=== PATIENT | female | born 1945 | race Caucasian/White ===

== ENCOUNTER 2022-05-29 10:45 | Outpatient (RCR) | payer MEDICARE, BC, SELFPAY ==
--- NOTE | 2022-05-21 14:50 | PT.OPDNX ---
PT [facility] Daily Note PT [facility] Daily Note Start: 05/06/22 09:14 Freq: Status: Active Protocol: Document 05/06/22 09:15 YUNahid (Rec: 05/06/22 09:23 TEGAN [id number]) E-Signed By Beulah Desai, PT PT OP Daily Progress Note Visit Information Note Type Daily Note Visit Number [id number] Insurance Information Recert Due Date 05/22/22 Insurance Name Medicare B Medical Diagnosis Rt Femoral Head Fracture with Surgical Repair Treating Diagnosis Impaired WB and Balance Reduced ease of self cares and ADL's Reduced flexibility and strength Rt involved LE Rt hip and LBP Subjective Subjective Have more pain when I try to do the scar mobs like you do here. I don't quite do it right, and it hurts afterward. When I don't monkey with it, and only do the ex and walk, I don 't have any pain. I do feel fully stable for the first 2-3 steps walking, but then it is fine. I have to remind myself to stand up tall. Pain Comments minimal - at ant hip/groind Precautions Treatment Precautions/Contraindications Hypertension Arthritis Weight Bearing Status Full Weight Bearing Objective Patient Instructed in Risks/Benefits Yes Therapeutic Exercise Therapeutic Exercise Minutes (minutes) 22 Therapeutic Exercise: To Restore Completed ex of: Functional Status -sit back squat X 10 reps -4 step ups X 20 reps kathy -hip EXT/ABD combo with GTB X 20 reps kathy -tandom stance X 30 sec X 2 kathy -SLS with average Rt today 5 sec (was 2 sec) -alternating Lt/Rt forward lunges *HEP of: -nichelle hip flex stretch, leg hang off table -hip circles 15 reps CW/CCW -bridge with hip ABD X 10 reps . Added GTB to this ex. Given band for home use with this and standing hip ABD/EXT combo X 10 reps kathy. -hip hike X 20 reps kathy -toe tap on bottom step X 20 reps. -hip flex stretch with leg off table -hip ADD stretch from hooklying, then allow Rt knee to fall outwards. -forward lunge and alternate Rt/Lt -SLS with average Rt leg of 2 sec -mini wall squats -ankle pumps, heel slide/knee flex, quad sets. -bridge X 2 sets of 5 reps -SLR 2 sets of 5 reps -Dbl heel raise at counter top X 10 reps -standing hip ABD Rt leg X 10 reps (progress to resistance band use) Manual Therapy Techniques Manual Therapy Minutes (minutes) 16 Manual Therapy Techniques to promote circulation and flexibility, reduced LL edema, we completed: -supine gross full Rt quad, ITB and buttock/hip moderate pressure STM, manual hamstring and gastroc stretches, mod pressure over lateral hip / incision, Manual hip ADD and hip flex stretching. Long leg distraction (not HVLAT) -Rt sdly for mod pressure STM/ mm beding and TPR to Rt piriformis, glut med/max. Also AP/PA mobs at Rt SIJ Treatment Minutes Timed Code Treatment Minutes 38 Total Treatment Time 38 Assessment/Impression Assessment/Impression Min to moderate tenderness and palpable hypertonicity with moderte pressure at inguinal lig and ADD origin at pelvis. She tolerated treatment well. Still weak with hip EXT and ER, but good range. She ambulates with slight FF at trunk, difficult to have her stand erect. She states she feels like that is how she has always walked! Plan of Care Physical Therapy Goals In 4-6 visits, Julisa will be able to: 1. A/D flight of 10 steps with reciprocal pattern and symmetric WB. 2. Squat and lift up at least 15#, carry a distance of 30 feet (groceries to the house from car, laundry basket) 3. Stand/walk up to 30 min to prepare light meals for her and her 4. Walk outdoore at least 30 min to walk her dog 2X/day ( border collie) In 3-4 months, Julisa will be able to: 1. Return to walk for ex at least 2 miles per day 2. Sleep up to 6 hours without awakening due to hip discomfort 3. Return to PLOF with home cares, cleaning and light yard work (flower pots and picking up sticks) Daily Plan of Care Continue per POC Daily Plan of Care Comments Information pulled forward from our original documentation format in [employer]. No treatment this date. No charge. Recertification Information Clinical Certification # #[id number] Patient's H.I.C.N.# # I Certify That I Have Established All Therapy Services/Plan Physician Signature Shows Agreement Dates & Medical Necessity Physician Comment/Change Comment or Changes Physician Signature & Date Please Sign/Date Here Physician NPI Number # Document 05/08/22 13:40 CLK (Rec: 05/08/22 13:56 K [id number]) E-Signed By Beulah Desai, PT PT OP Daily Progress Note Visit Information Note Type Daily Note Visit Number 9 Insurance Information Recert Due Date 05/22/22 Insurance Name Medicare B Medical Diagnosis Rt Femoral Head Fracture with Surgical Repair Treating Diagnosis Impaired WB and Balance Reduced ease of self cares and ADL's Reduced flexibility and strength Rt involved LE Rt hip and LBP Subjective Subjective I woke up this morning and immediately felt like it would be a better day! My stiffness was less and no real pain. I was able to take a shower and dress, by the time I was done with coffee, my stiffness even seemed less. I finally think this is going to be ok. Precautions Treatment Precautions/Contraindications Hypertension Arthritis Weight Bearing Status Full Weight Bearing Objective Patient Instructed in Risks/Benefits Yes Therapeutic Exercise Therapeutic Exercise Minutes (minutes) 25 Therapeutic Exercise: To Restore Completed ex of: Functional Status -sit back squat X 10 reps -4 step ups X 20 reps kathy -hip hike at stairs X 25 reps kathy -hip EXT/ABD combo with BTB X 25 reps kathy -tandom stance X 30 sec X 2 kathy -SLS with average Rt today 7 sec (was 2 sec) -alternating Lt/Rt forward lunges *HEP of: -nichelle hip flex stretch, leg hang off table -hip circles 15 reps CW/CCW -bridge with hip ABD X 10 reps . Added GTB to this ex. Given band for home use with this and standing hip ABD/EXT combo X 10 reps kathy. -hip hike X 20 reps kathy -toe tap on bottom step X 20 reps. -hip flex stretch with leg off table -hip ADD stretch from hooklying, then allow Rt knee to fall outwards. -forward lunge and alternate Rt/Lt -SLS with average Rt leg of 2 sec -mini wall squats -ankle pumps, heel slide/knee flex, quad sets. -bridge X 2 sets of 5 reps -SLR 2 sets of 5 reps -Dbl heel raise at counter top X 10 reps -standing hip ABD Rt leg X 10 reps (progress to resistance band use) Manual Therapy Techniques Manual Therapy Minutes (minutes) 16 Manual Therapy Techniques to promote circulation and flexibility, we completed: -supine gross full Rt quad, ITB and lat hip moderate pressure STM, manual hamstring and gastroc stretches, mod pressure over lateral hip / incision, Manual hip ADD and hip flex stretching. Long leg distraction (not HVLAT) -Rt sdly for mod pressure STM/ mm bending and TPR to Rt piriformis, glut med/max. Also AP/PA mobs at Rt SIJ Treatment Minutes Timed Code Treatment Minutes 41 Total Treatment Time 41 Billing Units Manual Therapy Units 1 Therapeutic Exercise Units 2 Assessment/Impression Assessment/Impression Min to moderate tenderness and palpable hypertonicity with moderate pressure at inguinal lig and ADD origin at pelvis. and piriformis. Still weak with hip EXT and ER, but good range. Required vc on combination of these planes with standing BTB hip EXT/ABD. She ambulates with slight trunk FF, but when reminded, she is able to stand tall. Educated in how she can perform hip IR with leg on chair (hold wall for stability ) Plan of Care Physical Therapy Goals In 4-6 visits, Julisa will be able to: 1. A/D flight of 10 steps with reciprocal pattern and symmetric WB. MET 2. Squat and lift up at least 15#, carry a distance of 30 feet (groceries to the house from car, laundry basket) partially MET 3. Stand/walk up to 30 min to prepare light meals for her and her . MET 4. Walk outdoors at least 30 min to walk her dog 2X/day ( [employer]) Pertially met In 3-4 months, Julisa will be able to: 1. Return to walk for ex at least 2 miles per day 2. Sleep up to 6 hours without awakening due to hip discomfort. MET 3. Return to PLOF with home cares, cleaning and light yard work (flower pots and picking up sticks) Daily Plan of Care Continue per POC Recertification Information Clinical Certification # #[id number] Patient's H.I.C.N.# # I Certify That I Have Established All Therapy Services/Plan Physician Signature Shows Agreement Dates & Medical Necessity Physician Comment/Change Comment or Changes Physician Signature & Date Please Sign/Date Here Physician NPI Number # Document 05/15/22 13:31 TEGAN (Rec: 05/15/22 13:40 TEGAN [id number]) E-Signed By Beulah Desia, PT PT OP Daily Progress Note Visit Information Note Type Daily Note Visit Number 10 Insurance Information Recert Due Date 05/22/22 Insurance Name Medicare B Medical Diagnosis Rt Femoral Head Fracture with Surgical Repair Treating Diagnosis Impaired WB and Balance Reduced ease of self cares and ADL's Reduced flexibility and strength Rt involved LE Rt hip and LBP Subjective Subjective Overall, I feel like my symptoms after my hip surgery are about 80% PLOF. I woke up this morning and immediately felt like it would be a better day! My stiffness as less and no real pain. More of a general hip / LB ache. I was able to take a shower and dress, by the time I was done with coffee, my stiffness even seemed less. I finally think this is going to be ok. Precautions Treatment Precautions/Contraindications Hypertension Arthritis Weight Bearing Status Full Weight Bearing Objective Patient Instructed in Risks/Benefits Yes Therapeutic Exercise Therapeutic Exercise Minutes (minutes) 23 Therapeutic Exercise: To Restore Completed ex of: Functional Status -sit back squat X 10 reps -4 step ups X 20 reps kathy -Nu Step X 5 min for circulation and flexibility. Level 3 -hip EXT/ABD combo with BTB X 25 reps kathy -tandom stance X 30 sec X 2 kathy -SLS with average Rt today 7 sec (was 2 sec) -alternating Lt/Rt forward lunges *HEP of: -nichelle hip flex stretch, leg hang off table -hip circles 15 reps CW/CCW -bridge with hip ABD X 10 reps . Added GTB to this ex. Given band for home use with this and standing hip ABD/EXT combo X 10 reps kathy. -hip hike X 20 reps kathy -toe tap on bottom step X 20 reps. -hip flex stretch with leg off table -hip ADD stretch from hooklying, then allow Rt knee to fall outwards. -forward lunge and alternate Rt/Lt -SLS with average Rt leg of 2 sec -mini wall squats -ankle pumps, heel slide/knee flex, quad sets. -bridge X 2 sets of 5 reps -SLR 2 sets of 5 reps -Dbl heel raise at counter top X 10 reps -standing hip ABD Rt leg X 10 reps (progress to resistance band use) Manual Therapy Techniques Manual Therapy Minutes (minutes) 16 Manual Therapy Techniques to promote circulation and flexibility, we completed: -supine gross full Rt quad, ITB and lat hip moderate pressure STM, manual hamstring and gastroc stretches, mod pressure over lateral hip / incision, Manual hip ADD and hip flex stretching. Long leg distraction (not HVLAT) -Rt sdly for mod pressure STM/ mm bending and TPR to Rt piriformis, glut med/max. Also AP/PA mobs at Rt SIJ Treatment Minutes Timed Code Treatment Minutes 39 Total Treatment Time 39 Billing Units Manual Therapy Units 1 Therapeutic Exercise Units 2 Assessment/Impression Assessment/Impression Min to moderate tenderness and palpable hypertonicity with moderate pressure at inguinal lig and ADD origin at pelvis. and piriformis. Reduced sacral mobility with grade 3 spring mobs. Still weak with hip EXT and ER, but normal PROM. Required vc on combination of these planes with standing BTB hip EXT/ABD. She ambulates with slight trunk FF, but when reminded, she is able to stand tall. Educated in how she can complete IR stretch in sitting. Plan of Care Physical Therapy Goals In 4-6 visits, Julisa will be able to: 1. A/D flight of 10 steps with reciprocal pattern and symmetric WB. MET 2. Squat and lift up at least 15#, carry a distance of 30 feet (groceries to the house from car, laundry basket) partially MET 3. Stand/walk up to 30 min to prepare light meals for her and her . MET 4. Walk outdoors at least 30 min to walk her dog 2X/day ( [employer]) Pertially met In 3-4 months, Julisa will be able to: 1. Return to walk for ex at least 2 miles per day 2. Sleep up to 6 hours without awakening due to hip discomfort. MET 3. Return to PLOF with home cares, cleaning and light yard work (flower pots and picking up sticks) Daily Plan of Care Continue per POC Recertification Information Clinical Certification # #[id number] Patient's H.I.C.N.# # Initial Certification Date 02/26/22 Most Recent Visit 05/15/22 Recertification Start Date 05/15/22 Recertification Due Date 08/11/22 Reasons to Continue Skilled Therapy Cont to have reduced AROM Rt involved hip EXT and IR. Weakness at hip EXT and ABD. Tenderness at hip flex and ADD origin. Slight FF with gait. Rehabilitation Potential Good Continued Plan of Care and Interventions Cont 1X/Wk for potentially 4 more visits I Certify That I Have Established All Therapy Services/Plan Physician Signature Shows Agreement Dates & Medical Necessity Physician Comment/Change Comment or Changes Physician Signature & Date Please Sign/Date Here Physician NPI Number #
== END 2022-07-21 13:25 | disposition home or self-care (01) ==
PROVIDERS: PCP Family Medicine; Visit Provider Family Medicine
DX: R26.9 Unspecified abnormalities of gait and mobility (principal); Z51.89 Encounter for other specified aftercare
CPT/HCPCS: 97110; 97140

== ENCOUNTER 2023-07-22 14:30 | Outpatient (RCR) | payer MEDICARE, BC, SELFPAY ==
--- NOTE | 2023-05-05 12:23 | OT.OPOE ---
OT Outpatient Ortho Eval OT Outpatient Ortho Eval* Start: 05/05/23 10:24 Freq: Status: Active Protocol: Document 05/05/23 11:41 LCN (Rec: 05/05/23 12:17 LCN [id number]) E-signed By Carmen Painter, OTR/L, CLT OT OP Ortho Eval Details Complexity Complexity Low Insurance Information Insurance Information Medicare B Insurance Information Comments BCBS Outpatient History/Precautions Current Condition/Medical Diagnosis Referring Provider Narayan Trejo Treatment Diagnosis L distal radius fracture Date of Onset 03/21/23 Medical Conditions Metal Implants,Arthritis Other Conditions Has had 2 falls with injury-- R hip fracture with hemiarthroplasty repair after hotel bathroom fall in [place] February 2022. 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 Has digit rotations for left RF/SF that were noted prior to her March wrist fracture Medical/Functional History Medical History Reviewed Yes Prior Level of Function/Mobility Pt lives with her in 3 level home, laundry and bathroom, bedrooms on main level. Stopped travelling with since 2019. 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 Ortho Subjective Subjective Subjective Julisa Bernard is an active 77 y/o female who fell onto outstretched L dominant hand in her laundry room while stepping onto a rolled up rug on 03/21/23. She was seen and ER and found to have sustained a distal radius fracture. Casted x [address] Flores and had follow up with Narayan Trejo on 04/1523. X ray reveals fracture healing with 25 degree dorsal angulation and 3 mm positive variance. notes that wrist FL ROM may be limited by 30 degrees. She is starting to wean off splint a bit and can tell she is less stiff with it off. Sleeps with it on still. Since this she is having difficulty with being unable to drive, don bra, chop vegetables, carry heavy pots/ dishes or laundry loads, or fold towels. Pain Assessment Pain Present Pain Present Pain Reported Location L wrist Description Pressure,Dull, Achy,Throbbing Intensity 4 Range of Motion and Strength Shoulder Range of Motion and Strength Shoulder Range of Motion and Strength Pt stiff with end range of shoulder L SH ER and IR after casting. RUE hand is sore at CMC and wrist just from using more. Wrist Range of Motion and Strength Wrist Range of Motion and Strength Springy at end ROM L EL FL. Supination 60 of 90, pronation 45 of 90. WR EX to 50 of 65 , WR FL 60 of 85 AROM (tender at distal radius 3/10). RD to 15 of 20 and UD 40 of 45 (tender at distal radius 3/10 ). Hand/Finger/Thumb Range of Motion and Strength Hand/Finger/Thumb Range of Motion and Makes loose fist, flat fist Strength and table top easily. Hooked fist to rolled down fist challenging per PIP DIP OA changes. L TH opposition to 10/10 [place] and retropulsion to 3/ 4, stiff at CMC base. 3-4/10 pain at L distal radius site with gripping, pinching. Hand Pinch/Spinner Open End Strength Hand Right Spinner Open End Strength Position 1 (lbs) 20 Lateral Pinch Strength (lbs) 8 Three Point Pinch (lbs) 8 Left Spinner Open End Strength Position 1 (lbs) 10 Lateral Pinch Strength (lbs) 5 Three Point Pinch (lbs) 5 OT Problems Problems Problems Decreased Strength,Decreased Range of Motion,Decreased Dexterity Problems Comments Unable to drive, don bra, chop vegetables, carry heavy pots/dishes or laundry loads, fold towels Hoping to get back to walking on treadmill and using therapy ball for core exercises. Other Problems Writing Patient Potential Excellent Assessment Assessment Assessment Julisa is recovering well from her dominant hand distal radius fracture, but continues to have difficulty with edema , pain, ROM and strength loss of L hand/wrist/forearm and she would benefit from skilled OT to address these areas. Occupational Therapy Treatment Plan - OP Potential Rehabilitation Potential Excellent Goals Goals In 8 weeks, pt will demonstrate:? 1) Decreased pn to <2/10 80% of the time with sustained gripping, carrying groceries, driving and cooking. 2) I HEP for stretching, gradual strengthening and self mgmt strategies. 3) improved L manager [employer] marketing strength to 15# and pinch to 7# with L wrist pain < 1/10. 4)??Pt to be fit with functional bracing (for CMC, edema gloves) and use adaptive strategies to protect joint integrity to support less pain with ADL. Treatment Plan Treatment Plan Evaluation,Edema Control,Joint Mobilization,Manual Therapy, Therapeutic Exercise,Self Care /Home Management,Education Expected Frequency 1-2x Week Expected Duration 8-10 Weeks Home Program Home Program Home Program Initiated Home Program Specifics Warm water soaks, hand/wrist/ forearm AROM stretches. Increase gentle self care tasks without brace on. Brace on for community mobility. Certification Certification I Certify That: Therapy Services Provided, Therapy Plan Established, Therapy Plan Reviewed Recertification Information Recertification Information Initial Certification Date 05/05/23 Recertification Due Date 08/03/23 Provider Signature Shows Agreement With POC & Medical Necessity Physician Comment/Change Comment or Changes Physician NPI Number #
--- NOTE | 2023-06-30 10:26 | OT.OPODN ---
OT Outpatient Ortho Daily Note OT Outpatient Ortho Daily Note* Start: 05/05/23 10:24 Freq: Status: Active Protocol: Document 06/30/23 10:12 CATERINA (Rec: 06/30/23 10:26 LCIveth [id number]) E-signed By Carmen Painter, OTR/L, CLT Type of Note Type of Note Type of Note Daily Note,Note to MD Visit Number 10 Insurance Information Insurance Information Medicare B Insurance Information Comments BCBS Outpatient History/Precautions Current Condition/Medical Diagnosis Referring Provider Narayan Trejo Treatment Diagnosis L distal radius fracture Date of Onset 03/21/23 Other Precautions Added diagnosis of carpal tunnel syndrome R hand as of Medical Conditions Metal Implants,Arthritis Other Conditions Has had 2 falls with injury-- R hip fracture with hemiarthroplasty repair after hotel bathroom fall in [place] February 2022. 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 Has digit rotations for left RF/SF that were noted prior to her March wrist fracture Medical/Functional History Medical History Reviewed Yes Prior Level of Function/Mobility Pt lives with her in 3 level home, laundry and bathroom, bedrooms on main level. Stopped travelling with since 2019. 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 Ortho Subjective Subjective Subjective No longer having tingling in her R hand in the morning, occasional zapping feeling during grasp/twist of phone, fastening seat belt. Not confident pouring out pasta pot yet w L wrist, helps. Responds well to doing warm water and hand tendon gliding in shower. Wrist/ fingers get stiff, respond to wrist stretches and tendon glides. Julisa Bernard is an active 77 y/o female who fell onto outstretched L dominant hand in her laundry room while stepping onto a rolled up rug on 03/21/23. She was seen and ER and found to have sustained a distal radius fracture. Casted x [address] guevara and had follow up with Narayan Trejo on 04/1523. X ray reveals fracture healing with 25 degree dorsal angulation and 3 mm positive variance. notes that wrist FL ROM may be limited by 30 degrees. SHe is starting to wean off splint a bit and can tell she is less stiff with it off. Sleeps with it on still. Since this she is having difficulty with being unable to drive, michael bra, chop vegetables, carry heavy pots/ dishes or laundry loads, or fold towels. Pain Assessment Pain Present Pain Present Pain Reported Location R CTS Description Cramping,Spasm,Other Intensity 2 L wrist Description Pressure,Dull, Achy Intensity 1 OT OP Daily Ortho Note/Assessment Therapeutic Exercise Therapeutic Exercise Minutes (minutes) 8 Therapeutic Exercise Comments Added HEP for cervical retraction glides, 5 sec holds x 5 reps and cervical flexor suboccipital stretch as postural relief, feels some crepitus with retractions, not painful. Manual Therapy Manual Therapy Minutes (minutes) 18 Manual Therapy Comments OTR cont w STM of R forearm, thenar/web and CT arch (gritty , thick pressure at CT gives NN symptoms). OTR continues STM to mobilize soft tissue surrounding joint capsule,? ligament structures and muscle groups to support freedom of movement and healing of structures of L wrist. LPPS with joint tractioning and PCR joint mobilizations at S/L/C. Less pn at end ROM of supination post OT. Ultrasound Ultrasound Minutes (minutes) 8 Ultrasound Location & Joint Position OPEN R wrist CT Ultrasound Frequency & Mode 1 MHz Pulsed Intensity (w/cm2) 1.7 Ultrasound Comments as needed to support reduction of edema for tissue healing and improved tissue mobility Total Occupational Therapy Time Occupational Therapy Minutes 34 Home Program Home Program Home Program Revised,Compliant Home Program Specifics 06/30/23-- Cerv retraction and sub occipital stretch. 06/26/23-- copy camera operator/2p/K/rolling w yellow putty, exercise grid 06/22/23-- Yellow band WR EX/FL /RD/UD 06/02/24--Wall push ups 2 sec holds x 10, WR FL stretch and soup can WE, WF and sup/pron. 05/26/23- gripping in sup/pron /neutral pos/yellow, wall push ups. 05/13/23-- Lateral Weightshifting in punched position 25/75% - 75/25%. 05/11/23-- tendon glide exercises Warm water soaks, hand/wrist/ forearm AROM stretches. Increase gentle self care tasks without brace on. Brace on for community mobility. Range of Motion and Strength Shoulder Range of Motion and Strength Shoulder Range of Motion and Strength Pt stiff with end range of shoulder L SH ER and IR after casting. RUE hand is sore at CMC and wrist just from using more. Wrist Range of Motion and Strength Wrist Range of Motion and Strength Springy at end ROM L EL FL. Supination 60 of 90, pronation 45 of 90. WR EX to 50 of 65 , WR FL 60 of 85 AROM (tender at distal radius 3/10). RD to 15 of 20 and UD 40 of 45 (tender at distal radius 3/10 ). Hand/Finger/Thumb Range of Motion and Strength Hand/Finger/Thumb Range of Motion and Makes loose fist, flat fist Strength and table top easily. Hooked fist to rolled down fist challening per PIP DIP OA changes. L TH opposition to 10/10 kepangi and retropulsion to 3/ 4, stiff at CMC base. 3-02/16 pain at L distal radius site with gripping, pinching. Goniometric Comments Goniometric Comments Goniometric Comments 06/09/23-- WE 65 and WR FL to 70 .O adolfo pressure of supination and pronation tender at PCR S/ L/C.05/26/23-- Supination to 85 ( pulls at TFCC) WR FL to 60 and WR EX to 60 post OT. 05/13/23-- WR FL to 65 and WR EX to 65 post OT. 05/11/23-- WR FL from 60 to 65 and WR EX from 42 to 65 post OT. Hand Pinch/Brass Finisher Strength Hand Right Brass Finisher Strength Position 1 (lbs) 20 Lateral Pinch Strength (lbs) 9 Three Point Pinch (lbs) 6 Left Brass Finisher Strength Position 1 (lbs) 17 Lateral Pinch Strength (lbs) 10 Three Point Pinch (lbs) 6 Comments Comments 06/22/23--WE 60, WR FL to 70. Over pressure of supination to 85 of 90, no pain at TFCC anymore. Brass Finisher is 15# R an 17# L. 06/09/23-- R chart collector 20# (achy, feels weak, numbness in IF/MF) . L 14#. Improved per above. 05/13/23-- R chart collector 20#, L 10#. no change. Upper Extremity Special Tests Upper Extremity Special Tests Comments Comments 06/30/23--Durkan's (+) in 45 sec pre OT IF/MF mild finger tip tingling with brisk sec recovery and after OT session no sx in 60 sec. 06/26/23-- Durkan's (+) in 15 sec pre-OT at IF/MF/RF tingling with 10 sec recovery and after OT session no sx in 60 sec. 06/23/23-- Durkan's (+) in 15 sec per OT/IF/MF/RF tingling and after OT session no sx in 60 sec. 06/16/23-- Durkan's (+) in 55 sec, presents as jumpy fingers , not tingling, after OT session 06/09/23-- Durkan's (+) in 10 sec, taking > 30 sec to recover, numb most in middle finger. (-) in L hand. carpal compression (+), painful. Cervical compression in EX/FL and neutral no increase of tingling, but does get some with H ABD and Cerv LF to L and more with CERV LF R to the R. 05/13/23--Durkan's (+) with R hand at 20 sec (all fingers, h /o OA in R thumb), recovers in 10-15 sec. (-) L hand. OT Problems Problems Problems Decreased Strength,Decreased Range of Motion,Decreased Dexterity Problems Comments Unable to drive, michael bra, chop vegetables, carry heavy pots/dishes or laundry loads, fold towels Hoping to get back to walking on treadmill and using therapy ball for core exercises. Other Problems Writing Patient Potential Excellent Assessment Assessment Assessment Pt's R carpal tunnel irritation symptoms are responding well with bracing/ HS and STM, ultrasound. L wrist stiffness improving, working on stability with good response. Encouraged pt to modify her cell phone with support D loop to reduce hyper gripping. Julisa is recovering well from her dominant hand distal radius fracture, but continues to have difficulty with edema , pain, ROM and strength loss of L hand/wrist/forearm and she would benefit from skilled OT to address these areas. Occupational Therapy Treatment Plan - OP Potential Rehabilitation Potential Excellent Goals Goals In 8 weeks, pt will demonstrate:? 1) Decreased pn to <2/10 80% of the time with sustained gripping, carrying groceries, driving and cooking. 2) I HEP for stretching, gradual strengthening and self mgmt strategies. 3) improved L chart collector strength to 15# and pinch to 7# with L wrist pain < 1/10. 4)??Pt to be fit with functional bracing (for CMC, edema gloves) and use adaptive strategies to protect joint integrity to support less pain with ADL. Treatment Plan Treatment Plan Evaluation,Edema Control,Joint Mobilization,Manual Therapy, Therapeutic Exercise,Self Care /Home Management,Education Expected Frequency 1-2x Week Expected Duration 8-10 Weeks Occupational Therapy Billing Units Treatment Minutes Timed Treatment Minutes 34 Total Treatment Minutes 34 Billing Units Manual Therapy 1 Therapeutic Exercise 1 Certification Certification I Certify That: Therapy Services Provided, Therapy Plan Established, Therapy Plan Reviewed Recertification Information Recertification Information Initial Certification Date 05/05/23 Recertification Due Date 08/03/23 Provider Signature Shows Agreement With POC & Medical Necessity Physician Comment/Change Comment or Changes Physician NPI Number #
--- NOTE | 2023-07-22 15:40 | OT.OPODN ---
OT Outpatient Ortho Daily Note OT Outpatient Ortho Daily Note* Start: 05/05/23 10:24 Freq: Status: Active Protocol: Document 07/22/23 15:27 LCN (Rec: 07/22/23 15:39 LCN [id number]) E-signed By Carmen Painter, OTR/L, CLT Type of Note Type of Note Type of Note Daily Note,Discharge Note,Note to MD Visit Number 13 Insurance Information Insurance Information Medicare B Insurance Information Comments BCBS Outpatient History/Precautions Current Condition/Medical Diagnosis Referring Provider Narayan Trejo Treatment Diagnosis L distal radius fracture Date of Onset 03/21/23 Other Precautions Added diagnosis of carpal tunnel syndrome R hand as of Medical Conditions Metal Implants,Arthritis Other Conditions Has had 2 falls with injury-- R hip fracture with hemiarthroplasty repair after hotel bathroom fall in [place] February 2022. 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 Has digit rotations for left RF/SF that were noted prior to her March wrist fracture Medical/Functional History Medical History Reviewed Yes Prior Level of Function/Mobility Pt lives with her in 3 level home, laundry and bathroom, bedrooms on main level. Stopped travelling with since 2019. 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 Ortho Subjective Subjective Subjective WIth cortisone in R wrist, has had reduction in tingling, less swelling in fingers, good response. Is now confident pouring out pasta pot yet w L wrist/hand, helps get microwave items from overhead. Responds well to doing warm water and hand tendon gliding in shower to mange daily hand stiffness OA sx. Pt pleased with her outcomes and is feeling ready for discharge. Pain Assessment Pain Present Pain Present Pain Reported Location R CTS Description Cramping,Spasm,Other Intensity 0 L wrist Description Dull, Achy Intensity 1 OT OP Daily Ortho Note/Assessment Therapeutic Exercise Therapeutic Exercise Minutes (minutes) 9 Therapeutic Exercise Comments Doing well with HEP, adding hammer turns for supination / pronation planes, with rubber mallet held mid shaft. and orange band with wrist exercises. 10 reps ea of WR EX, FL RD, UD. COMpleted dynamic stabilization tasks with power web/yellow x 5 sec holds of 5 reps each WR EX + trimmer buffing wheel, punch + flexion. WR EX/ FL wringing. Well tolerated no pain. Pt guided to cont exercises 3x/week for the next month. Manual Therapy Manual Therapy Minutes (minutes) 15 Manual Therapy Comments OTR cont w STM of R forearm, thenar/web and CT arch (less gritty, thick). OTR continues STM to mobilize soft tissue surrounding joint capsule,? ligament structures and muscle groups to support freedom of movement and healing of structures of L wrist. LPPS with joint tractioning and PCR joint mobilizations at S/L/C. Less pn at end ROM of supination post OT. Total Occupational Therapy Time Occupational Therapy Minutes 24 Home Program Home Program Home Program Revised,Compliant Home Program Specifics 07/10/23-- hammer turns, orange band WR E/FL/RD/UD. 06/30/23-- Cerv retraction and sub occipital stretch. 06/26/23-- wind plant manager/2p/K/rolling w yellow putty, exercise grid 06/22/23-- Yellow band WR EX/FL /RD/UD 06/02/24--Wall push ups 2 sec holds x 10, WR FL stretch and soup can WE, WF and sup/pron. 05/26/23- gripping in sup/pron /neutral pos/yellow, wall push ups. 05/13/23-- Lateral Weightshifting in punched position 25/75% - 75/25%. 05/11/23-- tendon glide exercises Warm water soaks, hand/wrist/ forearm AROM stretches. Increase gentle self care tasks without brace on. Brace on for community mobility. Range of Motion and Strength Shoulder Range of Motion and Strength Shoulder Range of Motion and Strength Pt stiff with end range of shoulder L SH ER and IR after casting. RUE hand is sore at CMC and wrist just from using more. Wrist Range of Motion and Strength Wrist Range of Motion and Strength Springy at end ROM L EL FL. Supination 60 of 90, pronation 45 of 90. WR EX to 50 of 65 , WR FL 60 of 85 AROM (tender at distal radius 3/10). RD to 15 of 20 and UD 40 of 45 (tender at distal radius 3/10 ). Hand/Finger/Thumb Range of Motion and Strength Hand/Finger/Thumb Range of Motion and Makes loose fist, flat fist Strength and table top easily. Hooked fist to rolled down fist challening per PIP DIP OA changes. L TH opposition to 08/18 kepangi and retropulsion to 3/ 4, stiff at CMC base. 3-02/16 pain at L distal radius site with gripping, pinching. Goniometric Comments Goniometric Comments Goniometric Comments 06/09/23-- WE 65 and WR FL to 70 .O adolfo pressure of supination and pronation tender at PCR S/ L/C.05/26/23-- Supination to 85 ( pulls at TFCC) WR FL to 60 and WR EX to 60 post OT. 05/13/23-- WR FL to 65 and WR EX to 65 post OT. 05/11/23-- WR FL from 60 to 65 and WR EX from 42 to 65 post OT. Hand Pinch/Director Of Retail Strength Hand Right Director Of Retail Strength Position 1 (lbs) 22 Lateral Pinch Strength (lbs) 11 Three Point Pinch (lbs) 10 Left Director Of Retail Strength Position 1 (lbs) 20 Lateral Pinch Strength (lbs) 10 Three Point Pinch (lbs) 9.5 Comments Comments 07/22/23-- per above. 06/22/23--WE 60, WR FL to 70. Over pressure of supination to 85 of 90, no pain at TFCC anymore. Director Of Retail is 15# R an 17# L. 06/09/23-- R trimmer buffing wheel 20# (achy, feels weak, numbness in IF/MF) . L 14#. Improved per above. 05/13/23-- R trimmer buffing wheel 20#, L 10#. no change. Upper Extremity Special Tests Upper Extremity Special Tests Comments Comments 07/10/23-- Durkan's mildly positive for 15-30 seconds, then faded away no sx for last 30 sec at MF/RF. 07/03/23-- same as 06/30. --Durkan's (+) in 45 sec pre OT IF/MF mild finger tip tingling with brisk sec recovery and after OT session no sx in 60 sec. 06/26/23-- Durkan's (+) in 15 sec pre-OT at IF/MF/RF tingling with 10 sec recovery and after OT session no sx in 60 sec. 06/23/23-- Durkan's (+) in 15 sec per OT/IF/MF/RF tingling and after OT session no sx in 60 sec. 06/16/23-- Durkan's (+) in 55 sec, presents as jumpy fingers , not tingling, after OT session 06/09/23-- Durkan's (+) in 10 sec, taking > 30 sec to recover, numb most in middle finger. (-) in L hand. carpal compression (+), painful. Cervical compression in EX/FL and neutral no increase of tingling, but does get some with H ABD and Cerv LF to L and more with CERV LF R to the R. 05/13/23--Durkan's (+) with R hand at 20 sec (all fingers, h /o OA in R thumb), recovers in 10-15 sec. (-) L hand. OT Problems Problems Problems Decreased Strength,Decreased Range of Motion,Decreased Dexterity Problems Comments Unable to drive, michael bra, chop vegetables, carry heavy pots/dishes or laundry loads, fold towels Hoping to get back to walking on treadmill and using therapy ball for core exercises. Other Problems Writing Patient Potential Excellent Assessment Assessment Assessment Pt's R carpal tunnel irritation symptoms are responding better after cortisone. L wrist stiffness improving, now better wrist stability and progressing well with heavier household tasks. REady for d/c from OT. Occupational Therapy Treatment Plan - OP Potential Rehabilitation Potential Excellent Goals Goals Following 13 visits of OTJulisa demonstrates:? 1) Decreased pn to <2/10 80% of the time with sustained gripping, carrying groceries, driving and cooking. (GOAL MET 07/22/23) 2) I HEP for stretching, gradual strengthening and self mgmt strategies.(GOAL MET ) 3) improved L trimmer buffing wheel strength to 15# and pinch to 7# with L wrist pain < 1/10. (GOAL EXCEEDED 07/22/23) 4)??Pt to be fit with functional bracing (for CMC, edema gloves) and use adaptive strategies to protect joint integrity to support less pain with ADL. (GOAL D/C-- splint no longer needed) Treatment Plan Treatment Plan Evaluation,Edema Control,Joint Mobilization,Manual Therapy, Therapeutic Exercise,Self Care /Home Management,Education Expected Frequency 1-2x Week Expected Duration 8-10 Weeks Occupational Therapy Billing Units Treatment Minutes Timed Treatment Minutes 24 Total Treatment Minutes 24 Billing Units Manual Therapy 1 Therapeutic Exercise 1 Certification Certification I Certify That: Therapy Services Provided, Therapy Plan Established, Therapy Plan Reviewed Recertification Information Recertification Information Initial Certification Date 05/05/23 Recertification Due Date 08/03/23 Provider Signature Shows Agreement With POC & Medical Necessity Physician Comment/Change Comment or Changes Physician NPI Number # Discharge Note Discharge Note Discharge Summary Goals met per above. Date of First Visit for Therapy 05/05/23 Date of Last Visit for Therapy 07/22/23 Initial Primary Functional Limitations/ Julisa Bernard is an active 77 y/o [employer] female who fell onto outstretched L dominant hand in her laundry room while stepping onto a rolled up rug on 03/21/23. She was seen and ER and found to have sustained a distal radius fracture. Casted x [address] guevara and had follow up with Narayan Trejo on 04/1523. X ray reveals fracture healing with 25 degree dorsal angulation and 3 mm positive variance. notes that wrist FL ROM may be limited by 30 degrees. SHe is starting to wean off splint a bit and can tell she is less stiff with it off. Sleeps with it on still. Since this she is having difficulty with being unable to drive, michael bra, chop vegetables, carry heavy pots/ dishes or laundry loads, or fold towels. Interventions Provided During Treatment Edema Control,Joint Mobilization,Manual Therapy, Ultrasound,Therapeutic Exercise,Self Care/Home Management Interventions Provided During Treatment Pt's OT was extended to add Comments addressing sx of CTS in R hand , also had cortisone injection 07/06/23 which she responded very well to. Recommendations/Reason for Discharge Met All Therapy Goals
== END 2023-07-22 17:02 | disposition home or self-care (01) ==
PROVIDERS: PCP Family Medicine; Visit Provider Physician Assistant Surgical
DX: S52.502A Unspecified fracture of the lower end of left radius, initial encounter for closed fracture (principal); G56.01 Carpal tunnel syndrome, right upper limb; Z51.89 Encounter for other specified aftercare
CPT/HCPCS: 97035; 97110; 97140; 97165; 97535; X5282

== ENCOUNTER 2024-12-04 09:50 | Emergency (ER) | payer MEDICARE, BC, SELFPAY ==
--- OUTSIDE RECORDS SUMMARY | 2024-12-04 09:52 | XMS_ITS | Clinical Summary ---
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 Gender Identity Not on file Sexual Orientation Not on file Plan of Treatment Health Maintenance Due Date Last Done Comments Tdap 1954 Depression screening for age 12+ 1955 BMI (ht and wt on same day) for age 18+ 1961 Tetanus booster 1963 Pneumococcal series for age 50+ (1 of 1 - PCV) 1993 Zoster (shingles) series for age 50+ (1 of 2) 1993 DEXA/DXA scan for age 65+ 2008 RSV vaccine for adults or pr egnancy (1 - 1-dose 75+ series) 2018 COVID-19 vaccine series ( - season) 2024 Influenza for age 65+ 07/10/2024 07/24/2021, 020 Insurance MEDICARE PB ONLY [facility] Care Teams Test Designer Relationship Specialty Start Date End Date Pcp, No . PCP - General 08/17/20
[2024-12-04 10:04] VITALS: BP 156/96; PULSE 87; RESP 18; TEMP 36.7; O2SAT 97; BMI 21.9
--- NOTE | 2024-12-04 10:11 | ED.GENADULT ---
HPI - General Adult General Chief complaint: Abdominal Pain Stated complaint: Stomach pain Time Seen by Provider: 12/04/24 10:11 History of Present Illness HPI narrative: Patient report pulsating pain in mid abdomen that awoke her at 1 AM. Endorse mild nausea though no vomiting of diarrhea. 79-year-old woman presenting to the emergency department with concern of pulsing discomfort in her mid abdomen. Pulses were many seconds apart and located in the mid abdomen. They were not in time with her heart but spaced out much further. Does not seem sure that is not constipated but does not think so. Prompted later by concern expressed by my conversation with family, I ask about some blurriness of vision that she had. She notes that it was transient when she woke up. Almost momentary. Momentary also was a sense of lightheadedness not actually dizziness, maybe as she went to get up. Related Data Home Medications ?Medication ?Instructions ?Recorded ?Confirmed calcium carbonate (Calcium 600) 600 mg PO DAILY 03/24/23 12/07/24 multivitamin (Multiple Vitamins 1 tab PO DAILY 03/24/23 12/07/24 tablet) zinc acetate 50 mg (zinc) capsule 50 mg PO DAILY 03/24/23 12/07/24 aspirin 81 mg chewable tablet 81 mg PO DAILY 12/06/24 12/07/24 polyethylene glycol 3350 17 17 g PO DAILY PRN 12/07/24 12/07/24 gram/dose oral powder (Miralax) Previous Rx's ?Medication ?Instructions ?Recorded ondansetron 8 mg disintegrating 8 mg PO TID PRN nausea and 12/06/24 tablet vomiting #20 tabs sennosides 8.6 mg-docusate sodium 2 tab-cap (2 x 8.6-50 mg) PO QHS 12/06/24 50 mg tablet (Senna-S) #60 tabs Allergies Allergy/AdvReac Type Severity Reaction Status Date / Time Penicillins Allergy Rash Verified 12/07/24 16:41 Review of Systems Status of ROS: Reports: 6 or more systems reviewed and unremarkable except as noted in History and below [facility] Medical History Distal radius fracture, left ?S52.502A - Unspecified fracture of the lower end of left radius, initial encounter for closed fracture (ICD-10) Surgical History 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) ?Z96.641 - Presence of right artificial hip joint (ICD-10) Social History Narrative: -Zeb What is your current living situation?: I presently have a place to live Problems where you live: declined to answer Problems where you live details: n/a In the past 12 months, utilities in danger of being shut off: no In past 12 months, lack of transportation kept you from medical appts, meetings, work, or getting things needed for daily living: no In the past 12 mos, have been you worried that your food would run out before you had money to buy more?: never true In the past 12 mos, the food you bought just didn't last and you didn't have money to buy more?: never true Smoking Status: Never smoker Do you use any of these nicotine containing products: None Second hand tobacco smoke exposure: No Non-prescribed substance use: denies use Are you now , , , , never or living with a partner: Social isolation score (0-1 are the most socially isolated patients): 1 How often does anyone, including family, friends and others, physically hurt you: never How often does anyone, including family, friends and others, insult or talk down to you: never How often does anyone, including family, friends and others, threaten you with harm: never How often does anyone, including family, friends and others, scream or curse at you: never Exam Narrative: Exam Narrative: Pleasant. NAD. Seems slightly hard of hearing or possibly with some cognitive difficulty. Skin is warm and dry. Extremities are well perfused without edema. Lungs are clear. Heart with mid systolic crescendo murmur loudest at the right sternal border. Abdomen is protuberant. soft, nontender. No pulsatile masses appreciated. No mass appreciated. Const: Vital Signs, click to edit/add: Vital Signs - 24 hr 12/04/24 10:04 Temperature 98.1 F Pulse Rate [Pulse Oximeter] 87 Respiratory Rate 18 Blood Pressure [Le ft Upper Arm] 156/96 H Pulse Oximetry 97 Oxygen Delivery Me thod Room Air Documenting provider has reviewed patient's vital signs: yes Course Vital Signs Vital signs: Initial Vital Signs Temperature 98.1 F 12/04/24 10:04 Temperature Source Temporal Artery Scan 12/04/24 10:04 Pulse Rate 87 12/04/24 10:04 Respiratory Rate 18 12/04/24 10:04 Blood Pressure 156/96 H 12/04/24 10:04 Blood Pressure Mean 116 H 12/04/24 10:04 Pulse Oximetry 97 12/04/24 10:04 Oxygen Delivery Method Room Air 12/04/24 10:04 Vital Signs Temperature 98.1 F 12/04/24 10:04 Pulse Rate 87 12/04/24 10:04 Respiratory Rate 18 12/04/24 10:04 Blood Pressure 156/96 H 12/04/24 10:04 Pulse Oximetry 97 12/04/24 10:04 Oxygen Delivery Method Room Air 12/04/24 10:04 Temperature 98.1 F 12/04/24 10:04 Pulse Rate 87 12/04/24 10:04 Respiratory Rate 18 12/04/24 10:04 Blood Pressure 156/96 H 12/04/24 10:04 Pulse Oximetry 97 12/04/24 10:04 Oxygen Delivery Method Room Air 12/04/24 10:04 Medical Decision Making [facility] Narrative Medical decision making narrative: Murmur is new per her recollection. This would appear to be a murmur of aortic stenosis. Is not complaining of significant lightheadedness to what I would think this would be contributing otherwise. Further conversation appears that has been somewhat constipated. Small production, hard. Again seems to have some difficulty with recall. I wonder if what she is feeling is some intestinal colic in the setting of constipation? Will check labs though looking for further red flags to generate further workup. X-ray imaging of abdomen to perhaps confirm constipation. Urinary tract infection? Check D-dimer as partial screening for vascular disruption. Abdominal x-ray independently reviewed by me shows considerable lower colonic stool. Radiology over-read below INDICATION: Pain. TECHNIQUE: One view. IMPRESSION: Moderately large amount of formed stool particularly in the rectum and sigmoid and to a lesser degree descending left colon. No dilated air-filled small bowel. Right hip bipolar prosthesis. Pain well otherwise during time in the emergency department. Labs are reassuring. Required no treatments for pain or nausea. Discomfort faded. Medical Records Medical records reviewed: Yes I reviewed the patient's medical records Lab Data Lab results reviewed: Yes I reviewed the patient's lab results Labs: Lab Results 12/04/24 12/04/24 Range/Units 10:50 10:55 WBC 9.51 (4.50-11.00) K/uL RBC 3.96 L (4.00-5.20) m/uL Hgb 12.8 (12.0-16.0) gm/dL Hct 38.7 (33.0-51.0) % MCV 98 (80-100) fL MCH 32 (26-34) pg MCHC 33 (32-36) gm/dL RDW Coeff of Anderson 13.0 (11.5-15.5) % Plt Count 265 (140-440) K/uL Neut % (Auto) 84.3 H (42.0-72.0) % Lymph % (Auto) 10.8 L (20-44) % Faulk % (Auto) 4.6 (0.0-11.0) % Eos % (Auto) 0.1 (0.0-7.0) % Baso % (Auto) 0.1 (0.0-3.0) % Neut # (Auto) 8.00 H (1.7-7.0) K/uL Lymph # (Auto) 1.00 (0.90-2.90) K/uL Faulk # (Auto) 0.40 (0.00-0.90) K/UL Eos # (Auto) 0.01 (0.00-0.50) K/uL Baso # (Auto) 0.01 (0.00-0.30) K/uL Abs Immat Gran (auto) 0.01 (0.00-0.30) K/uL Imm/Tot Granulo (auto) 0.1 % D-Dimer Quant (PE/DVT) 0.56 H (0.00-0.50) ug/ml Sodium 139 (135-149) mmol/L Potassium 3.8 (3.6-5.1) mmol/L Chloride 104 (96-114) mmol/L Carbon Dioxide 23 (20-32) mmol/L Anion Gap 12 (7-15) mEq/L BUN 26 (7-30) mg/dL Creatinine 1.0 (0.5-1.5) mg/dL Estimated Creat Clear 34.90 Estimated GFR 57 ml/min Glucose 213 H (60-115) mg/dL Calcium 9.3 (8.4-10.6) mg/dL Urine Color Yellow (Yellow) Urine Appearance Slightly Cloudy A (Clear) Urine pH 6.0 (5.0-8.5) Ur Specific [place] 1.025 (1.000-1.030) Urine Protein Trace A (Negative) Urine Glucose (UA) 2+ A (Negative) Urine Ketones Negative (Negative) Urine Blood Trace-intact A (Negative) Urine Nitrite Negative (Negative) Urine Bilirubin Negative (Negative) Urine Urobilinogen 0.2 (0.2-1.0) Ur Leukocyte Esterase Trace A (Negative) Urine RBC 0-2 (0-2) Urine WBC 2-5 (0-5) Ur Squamous Epith Cells Few (None-Few) Urine Bacteria Moderate A (None) Hyaline Casts Few (None-Few) Urine Mucus Many A (None) Discharge Plan Discharge Clinical Impression: Constipation, Abdominal pain, colicky, Heart murmur Patient Disposition: Home w/ Parent or Adult Condition: Improved Instructions: Constipation (ED) Additional Instructions: It does appear that you are constipated. There are number of things available [id number] that can help with this. You said your stool has been rather hard lately. If you are having difficulty having a bowel movement, you might place an enema and repeat in an hour if no good result. I would begin regular dosing of MiraLax equivalent. Up to 3 doses in a day each diluted in at least 8 oz of liquid adjusting to stool consistency and continue this for a week or 2. Begin with at least 2 doses a day. Consider longer-term supplementation with Benefiber. Usually good to supplement with more fruit and vegetables in the diet generally. Otherwise for bowel cleanout this could be accomplished with magnesium citrate. Drink a bottle and repeat next day if no significant result. Return for marked increase in persistent pain, worsening lightheadedness or shortness of breath. Prescriptions: No Action aspirin 81 mg tablet,chewable 81 mg PO DAILY ondansetron 8 mg tablet,disintegrating 8 mg PO TID PRN (Reason: nausea and vomiting) Qty: 20 0RF sennosides-docusate sodium [Senna-S] 8.6-50 mg tablet 2 tab-cap PO QHS Qty: 60 12RF multivitamin [Multiple Vitamins] Tablet 1 tab PO DAILY calcium carbonate [Calcium 600] 600 mg calcium (1,500 mg) tablet 600 mg PO DAILY zinc acetate 50 mg (zinc) capsule 50 mg PO DAILY polyethylene glycol 3350 [Miralax] 17 gram/dose powder 17 g PO DAILY PRN Follow Up/Referrals: John Chahal MD [Primary Care Provider] - Stand Alone Forms: MyHealth Info Instructions
--- NOTE | 2024-12-04 10:34 | CRLHL7_ITS ---
For Patients: As a result of the Century Cures Act, medical imaging exams and procedure reports are released immediately into your electronic medical record. You may view this report before your referring provider. If you have questions, please contact your health care provider. INDICATION: Pain. TECHNIQUE: One view. IMPRESSION: Moderately large amount of formed stool particularly in the rectum and sigmoid and to a lesser degree descending left colon. No dilated air-filled small bowel. Right hip bipolar prosthesis. Dictated by Shoaib Jeffery MD @ 12/04/2024 11:21:06 AM (Electronically Signed)
--- OUTSIDE RECORDS SUMMARY | 2024-12-04 10:45 | XMS_ITS | Clinical Summary ---
Author Organization [facility] Address [place], [place] [address] Care Team Providers Care All Source Intelligence Analyst Name Role Phone Pcp, No Primary Care [...] on file Legal Sex Female 7:12 AM [employer] Gender Identity Not on file Sexual Orientation [...] 07/10/2024 07/24/2021, 020 Insurance MEDICARE PB ONLY [facility] Care Teams All Source Intelligence Analyst Relationship Specialty Start Date End Date Pcp, No . PCP - General 08/17/20
[2024-12-04 11:00] LABS: Basophils Absolute Auto 0.01 K/uL (0.00-0.30); Basophils Percent Auto 0.1 % (0.0-3.0); Eosinophils Absolute Auto 0.01 K/uL (0.00-0.50); Eosinophils Percent Auto 0.1 % (0.0-7.0); Hematocrit 38.7 % (33.0-51.0); Hemoglobin* 12.8 gm/dL (12.0-16.0); Immature Granulocytes Abs Auto 0.01 K/uL (0.00-0.30); Immature Granulocytes Pct Auto 0.1 %; Lymphocytes Percent Auto 10.8 % (20-44); Mean Corpuscular HGB Conc 33 gm/dL (32-36); Mean Corpuscular Hemoglobin 32 pg (26-34); Mean Corpuscular Volume 98 fL (80-100); Monocytes Percent Auto 4.6 % (0.0-11.0); Neutrophils Percent Auto 84.3 % (42.0-72.0); Platelet Count* 265 K/uL (140-440); Red Blood Count 3.96 m/uL (4.00-5.20); White Blood Count* 9.51 K/uL (4.50-11.00)
[2024-12-04 11:06] LABS: Appearance Urine Slightly Cloudy (Clear); Bilirubin Urine Negative (Negative); Blood Urine Trace-intact (Negative); Color Urine Yellow (Yellow); Glucose Urine 2+ (Negative); Ketones Urine Negative (Negative); Leukocyte Esterase Urine Trace (Negative); Nitrite Urine Negative (Negative); Protein Urine Trace (Negative); Specific Gravity Urine 1.025 (1.000-1.030); Urobilinogen Urine 0.2 (0.2-1.0)
[2024-12-04 11:10] LABS: Slide Review Reflex No
[2024-12-04 11:12] LABS: Chloride* 104 mmol/L (96-114); Potassium* 3.8 mmol/L (3.6-5.1); Sodium* 139 mmol/L (135-149)
[2024-12-04 11:14] LABS: Estimated Glomerular Filt Rate 57 ml/min
[2024-12-04 11:15] LABS: Anion Gap 12 mEq/L (7-15); Blood Urea Nitrogen* 26 mg/dL (7-30); Calcium* 9.3 mg/dL (8.4-10.6); Carbon Dioxide* 23 mmol/L (20-32); Glucose* 213 mg/dL (60-115)
[2024-12-04 11:18] LABS: D Dimer Quantitative* 0.56 ug/ml (0.00-0.50)
[2024-12-04 11:30] LABS: Bacteria Urine Moderate; Hyaline Casts Urine Few (None-Few); Mucus Urine Many; RBC Urine 0-2 (0-2); Squamous Epithelial Cell Urine Few (None-Few)
== END 2024-12-04 12:23 | disposition home or self-care (01) ==
PROVIDERS: Emergency Provider Family Medicine; PCP Family Medicine
DX: K59.00 Constipation, unspecified (principal); R10.84 Generalized abdominal pain; R01.1 Cardiac murmur, unspecified
CPT/HCPCS: 36415; 74018; 80048; 81001; 85025; 85379; 87086; 99283; 99284

== ENCOUNTER 2024-12-07 09:37 | Inpatient (IN) | payer MEDICARE, BC, SELFPAY ==
[2024-12-07] VITALS (42 sets, daily range): BP systolic 86–132; BP diastolic 56–101; PULSE 82–112; RESP 16–20; TEMP 36.6–37; O2SAT 82–96; BMI 20.9; BMI 22.2
--- NOTE | 2024-12-07 10:04 | ED.GENADULT ---
HPI - General Adult General Chief complaint: Constipation Stated complaint: Constipation Time Seen by Provider: 12/07/24 09:42 History of Present Illness HPI narrative: I need an enema. pt states has not had bm for 4-5 days. pt in ED on thursday and saw dr. burrell yesterday. took some pills yesterday that dr. burrell prescribed yesterday with no relief. 79-year-old woman returning to the emergency department with concern of constipation evolving over the last 5 days or so. 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 Was seen by myself 3 days ago in the emergency department and appear to be constipated with benign belly exam. Has not had a fever. Has not had cough nor shortness of breath. Tells me she has been taking MiraLax twice daily. Was prescribed senna-s and Zofran in clinic yesterday. Abdominal pain has increased. It sounds to be coming and going some not but more persistent; describes spasms. Denies nausea currently. Increasingly weak such that needs help with some self cares. She says she just has not been eating lately. Son Danny phone [phone] Son-in-law Les Bernard phone [phone] Related Data Home Medications ?Medication ?Instructions ?Recorded ?Confirmed calcium carbonate (Calcium 600) 600 mg PO DAILY 03/24/23 12/07/24 multivitamin (Multiple Vitamins 1 tab PO DAILY 03/24/23 12/07/24 tablet) zinc acetate 50 mg (zinc) capsule 50 mg PO DAILY 03/24/23 12/07/24 aspirin 81 mg chewable tablet 81 mg PO DAILY 12/06/24 12/07/24 polyethylene glycol 3350 17 17 g PO DAILY PRN 12/07/24 12/07/24 gram/dose oral powder (Miralax) Previous Rx's ?Medication ?Instructions ?Recorded ondansetron 8 mg disintegrating 8 mg PO TID PRN nausea and 12/06/24 tablet vomiting #20 tabs sennosides 8.6 mg-docusate sodium 2 tab-cap (2 x 8.6-50 mg) PO QHS 12/06/24 50 mg tablet (Senna-S) #60 tabs Allergies Allergy/AdvReac Type Severity Reaction Status Date / Time Penicillins Allergy Rash Verified 12/07/24 16:41 Review of Systems Status of ROS: Reports: 6 or more systems reviewed and unremarkable except as noted in History and below PFSH [facility] Medical History Distal radius fracture, left ?S52.502A - Unspecified fracture of the lower end of left radius, initial encounter for closed fracture (ICD-10) Surgical History 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) ?Z96.641 - Presence of right artificial hip joint (ICD-10) Social History Narrative: -Zeb What is your current living situation?: I presently have a place to live Problems where you live: declined to answer Problems where you live details: n/a In the past 12 months, utilities in danger of being shut off: no In past 12 months, lack of transportation kept you from medical appts, meetings, work, or getting things needed for daily living: no In the past 12 mos, have been you worried that your food would run out before you had money to buy more?: never true In the past 12 mos, the food you bought just didn't last and you didn't have money to buy more?: never true Smoking Status: Never smoker Do you use any of these nicotine containing products: None Second hand tobacco smoke exposure: No Non-prescribed substance use: denies use Are you now , , , , never or living with a partner: Social isolation score (0-1 are the most socially isolated patients): 1 How often does anyone, including family, friends and others, physically hurt you: never How often does anyone, including family, friends and others, insult or talk down to you: never How often does anyone, including family, friends and others, threaten you with harm: never How often does anyone, including family, friends and others, scream or curse at you: never Exam Narrative: Exam Narrative: Pleasant. NAD. Fully alert. I think has a little difficulty with recall. Lungs appear to be clear. Heart in elevated rate with 2/6 systolic murmur is noted prior. Regular rhythm. Abdomen is soft protuberant. Generally more tense. Bowel sounds are present. Generally tender and without peritoneal signs. Maximal tenderness appears to be in the mid lower abdomen. No discrete masses appreciated. Extremities are well perfused and without edema. I note that oxygen saturations have depressed. She is not taking full inspiratory efforts. Also has artificial nails but we are getting a good oxygen pleth furthermore had these in place when last evaluated. Const: Vital Signs, click to edit/add: Vital Signs - 24 hr 12/07/24 09:42 12/07/24 10:17 12/07/24 10:49 Temperature 97.9 F Pulse Rate 107 H 112 H Pulse Rate [Pulse Oximeter] 98 Pulse Rate [Right Radial] Respiratory Rate 18 Blood Pressure Blood Pressure [Ri ght Arm] Blood Pressure [Ri ght Upper Arm] 92/62 Pulse Oximetry 93 88 88 [facility] 12/07/24 10:56 12/07/24 11:01 12/07/24 11:15 Temperature Pulse Rate 107 H Pulse Rate [Pulse Oximeter] Pulse Rate [Right Radial] Respiratory Rate 16 Blood Pressure 93/68 Blood Pressure [Ri ght Arm] Blood Pressure [Ri ght Upper Arm] Pulse Oximetry 90 90 [facility] 12/07/24 11:22 12/07/24 11:23 12/07/24 11:30 Temperature Pulse Rate 110 H 109 H 104 H Pulse Rate [Pulse Oximeter] Pulse Rate [Right Radial] Respiratory Rate Blood Pressure 92/56 L Blood Pressure [Ri ght Arm] Blood Pressure [Ri ght Upper Arm] Pulse Oximetry 91 90 89 [facility] 12/07/24 11:31 12/07/24 11:45 12/07/24 12:02 Temperature Pulse Rate 109 H 100 104 H Pulse Rate [Pulse Oximeter] Pulse Rate [Right Radial] Respiratory Rate 18 Blood Pressure 86/64 L 125/81 Blood Pressure [Ri ght Arm] Blood Pressure [Ri ght Upper Arm] Pulse Oximetry 90 90 90 [facility] 12/07/24 12:15 12/07/24 12:30 12/07/24 12:31 Temperature Pulse Rate 97 94 88 Pulse Rate [Pulse Oximeter] Pulse Rate [Right Radial] Respiratory Rate Blood Pressure 125/81 Blood Pressure [Ri ght Arm] Blood Pressure [Ri ght Upper Arm] Pulse Oximetry 92 90 93 Oxygen Delivery Me thod 12/07/24 12:32 12/07/24 12:51 12/07/24 12:53 Temperature Pulse Rate 93 91 Pulse Rate [Pulse Oximeter] Pulse Rate [Right Radial] Respiratory Rate Blood Pressure 128/101 H Blood Pressure [Ri ght Arm] Blood Pressure [Ri ght Upper Arm] Pulse Oximetry 93 96 Oxygen Delivery Me thod 12/07/24 13:00 12/07/24 13:01 12/07/24 13:15 Temperature Pulse Rate 94 95 91 Pulse Rate [Pulse Oximeter] Pulse Rate [Right Radial] Respiratory Rate Blood Pressure 132/83 Blood Pressure [Ri ght Arm] Blood Pressure [Ri ght Upper Arm] Pulse Oximetry 92 91 Oxygen Delivery Me thod 12/07/24 13:30 12/07/24 13:31 12/07/24 13:39 Temperature Pulse Rate 89 92 Pulse Rate [Pulse Oximeter] Pulse Rate [Right Radial] Respiratory Rate Blood Pressure 123/88 Blood Pressure [Ri ght Arm] Blood Pressure [Ri ght Upper Arm] Pulse Oximetry 91 93 90 Oxygen Delivery Me thod 12/07/24 13:45 12/07/24 14:00 12/07/24 14:01 Temperature Pulse Rate 91 91 92 Pulse Rate [Pulse Oximeter] Pulse Rate [Right Radial] Respiratory Rate 18 Blood Pressure 120/78 Blood Pressure [Ri ght Arm] Blood Pressure [Ri ght Upper Arm] Pulse Oximetry 89 90 Oxygen Delivery Me thod 12/07/24 14:15 12/07/24 14:31 12/07/24 14:32 Temperature Pulse Rate 96 90 88 Pulse Rate [Pulse Oximeter] Pulse Rate [Right Radial] Respiratory Rate Blood Pressure 103/64 Blood Pressure [Ri ght Arm] Blood Pressure [Ri ght Upper Arm] Pulse Oximetry 91 96 95 Oxygen Delivery Me thod 12/07/24 14:45 12/07/24 15:00 12/07/24 15:01 Temperature Pulse Rate 89 94 96 Pulse Rate [Pulse Oximeter] Pulse Rate [Right Radial] Respiratory Rate 19 Blood Pressure 105/67 Blood Pressure [Ri ght Arm] Blood Pressure [Ri ght Upper Arm] Pulse Oximetry 95 91 96 Oxygen Delivery Me thod 12/07/24 15:15 12/07/24 15:30 12/07/24 15:31 Temperature Pulse Rate 91 94 94 Pulse Rate [Pulse Oximeter] Pulse Rate [Right Radial] Respiratory Rate Blood Pressure 108/67 Blood Pressure [Ri ght Arm] Blood Pressure [Ri ght Upper Arm] Pulse Oximetry 95 94 92 Oxygen Delivery Me thod 12/07/24 15:45 12/07/24 16:05 12/07/24 16:05 Temperature Pulse Rate 95 Pulse Rate [Pulse Oximeter] Pulse Rate [Right Radial] 96 Respiratory Rate 20 20 Blood Pressure Blood Pressure [Ri ght Arm] 103/72 Blood Pressure [Ri ght Upper Arm] Pulse Oximetry 82 L 93 93 Oxygen Delivery Me thod Room Air Room Air Documenting provider has reviewed patient's vital signs: yes Course Vital Signs Vital signs: Initial Vital Signs Temperature 97.9 F 12/07/24 09:42 Temperature Source Temporal Artery Scan 12/07/24 09:42 Pulse Rate 98 12/07/24 09:42 Respiratory Rate 18 12/07/24 09:42 Blood Pressure 92/62 12/07/24 09:42 Blood Pressure Mean 72 12/07/24 09:42 Blood Pressure Position Supine 12/07/24 09:42 Pulse Oximetry 93 12/07/24 09:42 Oxygen Delivery Method Room Air 12/07/24 09:42 Vital Signs Temperature 97.9 F 12/07/24 09:42 Pulse Rate 98 12/07/24 09:42 Respiratory Rate 18 12/07/24 09:42 Blood Pressure 92/62 12/07/24 09:42 Pulse Oximetry 93 12/07/24 09:42 Oxygen Delivery Method Room Air 12/07/24 09:42 Temperature 98.3 F 12/08/24 07:30 Pulse Rate 94 12/08/24 07:30 Respiratory Rate 16 12/08/24 07:30 Blood Pressure 109/71 12/08/24 07:30 Pulse Oximetry 92 12/08/24 07:30 Oxygen Delivery Method Room Air 12/08/24 07:30 Medications Administered Medications: Generic Name Dose Route Start Last Admin Trade Name Freq PRN Reason Stop Dose Admin Sodium Chloride 1,000 mls @ 125 mls/hr 12/07/24 16:53 12/08/24 04:29 0.9 % Sodium Chloride 1000 Ml IV 125 mls/hr .Q8H OUMOU Administration Pantoprazole Sodium 40 mg 12/07/24 17:00 12/07/24 17:59 Pantoprazole Sodium 40 Mg Inj IVP 40 mg Q24H OUMOU Administration Phenol 1 spray 12/07/24 18:08 12/07/24 19:53 Phenol 1.4 % Throat [place] MUCOUS MEM 1 spray Q2H PRN Administration Sodium Chloride 5 ml 12/07/24 21:00 12/08/24 08:53 Sodium Chloride 0.9 % (Flush) 10 Ml Syringe IVF Not Given BID OUMOU Discontinued Medications Generic Name Dose Route Start Last Admin Trade Name Freq PRN Reason Stop Dose Admin Diatrizoate Meglum/Diatrizoate Sod 90 ml 12/07/24 23:00 12/07/24 22:59 Diatrizoate Meglumine, Sodium 120 Ml Solution NG 12/07/24 23:01 90 ml ONCE ONE Administration Sodium Chloride 1,000 mls @ 1,000 mls/hr 12/07/24 10:39 12/07/24 12:41 0.9 % Sodium Chloride 1000 Ml IV 12/07/24 11:38 Infused .Q1H ONE Infusion Lactated Ringer's 1,000 mls @ 1,000 mls/hr 12/07/24 12:15 12/07/24 14:11 Lactated Ringers 1000 Ml IV 12/07/24 13:14 Infused .Q1H ONE Infusion Meropenem 1 gm/ Sodium 100 mls @ 200 mls/hr 12/07/24 13:37 12/07/24 14:50 Chloride IVPB 12/07/24 13:38 Not Given ONCE ONE Meropenem 1 gm/ Sodium 100 mls @ 200 mls/hr 12/07/24 14:48 12/07/24 15:50 Chloride IVPB 12/07/24 14:49 Infused ONCE ONE Infusion Ceftriaxone Sodium 1 gm/ 100 mls @ 200 mls/hr 12/07/24 17:30 12/07/24 19:06 Sodium Chloride IVPB Infused Q24H OUMOU Infusion Sodium Chloride 1,000 mls @ 1,000 mls/hr 12/07/24 16:53 12/07/24 19:00 0.9 % Sodium Chloride 1000 Ml IV 12/07/24 17:52 Infused .Q1H OUMOU Infusion Medical Decision Making MDM Narrative Medical decision making narrative: Would repeat abdominal x-ray with attempt at two-view. With the vomiting I do have concerns more for ileus or development of a small bowel obstruction. This may also be a gastroenteritis with ileus of some sort. Weakness is concerning as is oxygen suppression. Pulmonary disease/pneumonia? Doubtful pulmonary embolus. Heart failure? Blood pressures are also little softer. Will be giving IV hydration. This may be evolving septic picture as well. Abdominal x-ray independently reviewed by me shows some air-fluid levels. And some small bowel dilatation. Radiology over-read noting right lung base opacities. I wonder if these might be atelectasis but all-in-all says concerning pattern. Will be obtaining CT imaging of chest abdomen pelvis. Has not needed NG placement Anticipate admission. Radiology over-read below INDICATION: Diffuse abdominal pain. Constipation. Vomiting. TECHNIQUE: Abdomen two views. COMPARISON: Abdominal radiographs 12/04/2024. FINDINGS: Multiple dilated small bowel loops with associated air-fluid levels. Small bowel dilatation measures up to 3.9 cm. No evidence of free intraperitoneal gas. Abdominal soft tissues elsewhere as imaged are unremarkable. Apparent new ill-defined opacities at the right lung base. Bone demineralization. Degenerative changes spine and pelvis. Right hip arthroplasty appears unchanged. IMPRESSION: 1. Small bowel dilatation with air-fluid levels suggest obstruction or underlying enteritis. 2. New ill-defined opacities at the right lung base, concerning for pneumonia/aspiration. Creatinine returns rather elevated. Will need to avoid IV contrast. Lactate also is elevated. Adding LR as 2 L fluid resuscitation. I think meets SIRS criteria but not exactly sepsis. Will look to confirm source of infection. On reassessment it appears the blood pressures have are responding to fluid resuscitation. Oxygenation remains a little low but does not appear to need supplemental oxygen. IV contrasted chest abdomen pelvis independently reviewed by me is most remarkable for multifocal pneumonia and what looks like a small bowel obstruction. Distended gallbladder. Did discuss these findings with radiologist INDICATION: Hypoxia. Abdominal pain. TECHNIQUE: CT chest, abdomen, and pelvis acquired without contrast. COMPARISON: Abdomen radiograph dated 12/04/2024. FINDINGS: CHEST: Lungs and pleura: Bilateral multifocal peribronchial ground-glass opacities, predominantly in the right middle lobe and right lower lobe. Heart and vessels: No cardiomegaly, no pericardial effusion. Atherosclerotic coronary artery calcifications. Thyroid and lower neck: No suspicious thyroid nodule. Mediastinum/saritha: No lymphadenopathy. Chest wall: No axillary lymphadenopathy. ABDOMEN/PELVIS: Evaluation of solid organs is limited secondary to lack of IV contrast administration. Liver: No suspicious focal hepatic lesion. Gallbladder and bile ducts: Hydropic gallbladder. Trace pericholecystic inflammation the fundus versus motion artifact. No calcified gallstones identified. Pancreas: Unremarkable. Spleen: Unremarkable. Adrenal glands: Adreniform thickening of the right adrenal gland. Unremarkable appearance of the left adrenal gland. Kidneys: No renal calculi or hydronephrosis bilaterally. Retroperitoneum: No lymphadenopathy. Bowel and mesentery: Extensive colonic diverticulosis, without evidence of acute diverticulitis. Multiple loops of fluid-filled dilated small bowel, with transition point in the left lower quadrant, compatible with small bowel obstruction. No significant ascites. No pneumoperitoneum. Bladder: Unremarkable for degree of distention. Reproductive organs: Suboptimally evaluated secondary to streak artifact. Pelvic lymph nodes: No definite lymphadenopathy. Vessels: Atherosclerotic calcifications. Abdominal wall: No acute abdominal wall abnormality. Bones: Multilevel degenerative changes of the spine. Bones are osteopenic. Right hip arthroplasty. IMPRESSION: 1. Numerous loops of fluid-filled dilated small bowel with transition point in the left lower quadrant, compatible with small bowel obstruction. 2. Hydropic gallbladder. Trace pericholecystic inflammation at the fundus versus motion artifact. Correlate clinically for any signs/symptoms of acute cholecystitis. 3. Multifocal pneumonia, right greater than left. Please note that all CT scans at this facility use dose modulation, iterative reconstruction, and/or weight-based dosing when appropriate to reduce radiation dose to as low as reasonably achievable. Dictated by Saulo Ellis MD @ 12/07/2024 1:27:49 PM Discussed ultrasound findings with vault worker. Cholelithiasis evident but does not appear to be with cholecystitis. Normal gallbladder wall and common bile duct INDICATION: Right upper quadrant pain. TECHNIQUE: Limited right upper quadrant ultrasound examination of the abdomen was performed. Grayscale and color Doppler images were obtained. COMPARISON: Same day CT chest abdomen and pelvis. FINDINGS: Liver: Normal in size and contour. The hepatic echotexture is normal. No suspicious hepatic masses. Gallbladder: Mildly distended gallbladder. No gallbladder wall thickening. No pericholecystic edema. Cholelithiasis. No definite sonographic Whitley`s sign. Common bile duct: Measures 4 mm. IMPRESSION: Cholelithiasis without definite sonographic evidence of acute cholecystitis. Discussed with General surgery and hospitalist for admission. Medical Records Medical records reviewed: Yes I reviewed the patient's medical records Lab Data Lab results reviewed: Yes I reviewed the patient's lab results Labs: Lab Results 12/07/24 12/07/24 12/07/24 Range/Units 10:56 12:04 12:10 WBC 4.19 L (4.50-11.00) K/uL RBC 4.55 (4.00-5.20) m/uL Hgb 14.7 (12.0-16.0) gm/dL Hct 43.7 (33.0-51.0) % MCV 96 (80-100) fL MCH 32 (26-34) pg MCHC 34 (32-36) gm/dL RDW Coeff of Anderson 13.0 (11.5-15.5) % Plt Count 185 (140-440) K/uL Neut % (Auto) 79.1 H (42.0-72.0) % Lymph % (Auto) 13.8 L (20-44) % [place] % (Auto) 6.7 (0.0-11.0) % Eos % (Auto) 0.0 (0.0-7.0) % Baso % (Auto) 0.2 (0.0-3.0) % Neut # (Auto) 3.30 (1.7-7.0) K/uL Lymph # (Auto) 0.60 L (0.90-2.90) K/uL [place] # (Auto) 0.30 (0.00-0.90) K/UL Eos # (Auto) 0.00 (0.00-0.50) K/uL Baso # (Auto) 0.00 (0.00-0.30) K/uL Abs Immat Gran (auto) 0.00 (0.00-0.30) K/uL Imm/Tot Granulo (auto) 0.2 % Diff Slide Review Acceptable Review (Acceptable) INR (0.91-1.10) Sodium 136 (135-149) mmol/L Potassium 4.6 (3.6-5.1) mmol/L Chloride 100 (96-114) mmol/L Carbon Dioxide 19 L (20-32) mmol/L Anion Gap 17 H (7-15) mEq/L BUN 81 H (7-30) mg/dL Creatinine 3.3 H (0.5-1.5) mg/dL Estimated Creat Clear 11.06 Estimated GFR 14 ml/min Glucose 156 H (60-115) mg/dL Lactate 3.7 H (0.5-1.9) mmol/L Calcium 9.2 (8.4-10.6) mg/dL C-Reactive Protein 4.6 H (0.5-1.0) mg/dL SARS-CoV-2 (PCR) (Negative) Influenza Type A (PCR) (Negative) Influenza Type B (PCR) (Negative) RSV (PCR) (Negative) Lab Acknowledgement New Spec Needed 12/07/24 12/07/24 Range/Units 13:38 15:40 WBC (4.50-11.00) K/uL RBC (4.00-5.20) m/uL Hgb (12.0-16.0) gm/dL Hct (33.0-51.0) % MCV (80-100) fL MCH (26-34) pg MCHC (32-36) gm/dL RDW Coeff of Anderson (11.5-15.5) % Plt Count (140-440) K/uL Neut % (Auto) (42.0-72.0) % Lymph % (Auto) (20-44) % [place] % (Auto) (0.0-11.0) % Eos % (Auto) (0.0-7.0) % Baso % (Auto) (0.0-3.0) % Neut # (Auto) (1.7-7.0) K/uL Lymph # (Auto) (0.90-2.90) K/uL [place] # (Auto) (0.00-0.90) K/UL Eos # (Auto) (0.00-0.50) K/uL Baso # (Auto) (0.00-0.30) K/uL Abs Immat Gran (auto) (0.00-0.30) K/uL Imm/Tot Granulo (auto) % Diff Slide Review (Acceptable) INR 1.05 (0.91-1.10) Sodium (135-149) mmol/L Potassium (3.6-5.1) mmol/L Chloride (96-114) mmol/L Carbon Dioxide (20-32) mmol/L Anion Gap (7-15) mEq/L BUN (7-30) mg/dL Creatinine (0.5-1.5) mg/dL Estimated Creat Clear Estimated GFR ml/min Glucose (60-115) mg/dL Lactate 3.7 H (0.5-1.9) mmol/L Calcium (8.4-10.6) mg/dL C-Reactive Protein (0.5-1.0) mg/dL SARS-CoV-2 (PCR) Negative SARS-CoV-2 (Negative) Influenza Type A (PCR) Negative PCR FLU A (Negative) Influenza Type B (PCR) Negative PCR FLU B (Negative) RSV (PCR) Negative PCR RSV (Negative) Lab Acknowledgement Critical Care Time Critical Care Time Critical Care Time: Yes Attestation: The patient required my highest level preparedness to intervene emergently and I personally spent this critical care time directly and personally managing the patient. This critical care time included: Obtaining a history; Examining the patient; Pulse oximetry; Ordering and reviewing of studies; Arranging urgent treatment with development of a management plan; Evaluation of patients response to treatment; Frequent reassessment discussions with other providers. This critical care time was performed to assess and manage the high probability of imminent life-threatening deterioration that could result in multiorgan failure. It was exclusive of separate billable procedures and treating other patients and teaching time. Total Critical Care Time in Minutes: 80 Discharge Plan Discharge Clinical Impression: Multifocal pneumonia, Small bowel obstruction, SIRS (systemic inflammatory response syndrome), Acute kidney injury, Cholelithiasis Patient Disposition: Admitted As Observation Condition: Improved
[2024-12-07] MEDS: 0.9 % SODIUM CHLORIDE 1000 ml 1,000 ML IV ×2 (11:00→17:58)
[2024-12-07 11:03] LABS: Basophils Percent Auto 0.2 % (0.0-3.0); Hematocrit 43.7 % (33.0-51.0); Hemoglobin* 14.7 gm/dL (12.0-16.0); Immature Granulocytes Pct Auto 0.2 %; Lymphocytes Percent Auto 13.8 % (20-44); Mean Corpuscular HGB Conc 34 gm/dL (32-36); Mean Corpuscular Hemoglobin 32 pg (26-34); Mean Corpuscular Volume 96 fL (80-100); Monocytes Percent Auto 6.7 % (0.0-11.0); Neutrophils Percent Auto 79.1 % (42.0-72.0); Platelet Count* 185 K/uL (140-440); Red Blood Count 4.55 m/uL (4.00-5.20); White Blood Count* 4.19 K/uL (4.50-11.00)
[2024-12-07 11:12] LABS: Slide Review Reflex Yes
[2024-12-07 11:41] LABS: Slide Review Acceptable Review (Acceptable)
[2024-12-07 12:10] LABS: Lactate* 3.7 mmol/L (0.5-1.9)
[2024-12-07 12:13] LABS: Lab Add On Test New Spec Needed
[2024-12-07 12:15] LABS: Chloride* 100 mmol/L (96-114); Sodium* 136 mmol/L (135-149)
[2024-12-07 12:16] LABS: Potassium* 4.6 mmol/L (3.6-5.1)
[2024-12-07 12:18] LABS: Creatinine* 3.3 mg/dL (0.5-1.5); Est. Creatinine Clearance* 11.06; Estimated Glomerular Filt Rate 14 ml/min
[2024-12-07 12:19] LABS: Anion Gap 17 mEq/L (7-15); Blood Urea Nitrogen* 81 mg/dL (7-30); Calcium* 9.2 mg/dL (8.4-10.6); Carbon Dioxide* 19 mmol/L (20-32); Glucose* 156 mg/dL (60-115)
[2024-12-07 12:22] LABS: C Reactive Protein* 4.6 mg/dL (0.5-1.0)
[2024-12-07] MEDS: LACTATED RINGERS 1000 ML 1,000 ML IV (12:52)
[2024-12-07 13:47] LABS: Lactate* 3.7 mmol/L (0.5-1.9)
[2024-12-07 14:05] LABS: INR 1.05 (0.91-1.10); Prothrombin Time 14.3 Seconds
--- NOTE | 2024-12-07 14:30 | ED.NURSE ---
I was told by Dr. Solitario to hold off on starting abx until infection source is narrowed down.
[2024-12-07] MEDS: MEROPENEM 1 GM in 0.9 % SODIUM CHLORIDE Mini-bag 100 ML IVPB (15:01)
--- NOTE | 2024-12-07 15:58 | PM.GSCN ---
History of Present Illness Consult details Date Seen: 12/07/24 Consult date: 12/07/24 Narrative: 79-year-old female presents for evaluation of small-bowel obstruction. I was asked by Dr. Solitario to see her in consultation. Patient states that since last Thursday she has been having abdominal pain. She was vomiting up to 3 times a day and still passing gas. She feels like the last time she passed gas was yesterday. She has not had a bowel movement since Thursday. She feels that the pain has not been improving or getting worse but staying stable. She denies fevers. She was seen in the emergency room over the weekend and was thought to have constipation. She was recommended to take laxatives however patient still continued to have abdominal pain and did not have a bowel movement. She decided to present to the emergency room today. Patient never had anything similar to this pain. She has never had a colonoscopy. She denies history of abdominal surgery. I personally reviewed her workup. Her WBC is 4, she is not anemic. However, patient could be also hemoconcentrated because she has lactate of 3 and has been vomiting for the last several days. An abdominal CT was obtained that showed dilated loops of small intestine with a transition point in the left lower quadrant. Her large intestine is decompressed. The gallbladder is distended with gallbladder hydrops. A gallbladder ultrasound was obtained that showed mildly distended gallbladder with stones, the common bile duct was 4 mm, the gallbladder wall was 2.5 mm thick. 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) ?Z96.641 - Presence of right artificial hip joint (ICD-10) Social History Narrative: -Zeb What is your current living situation?: I presently have a place to live Problems where you live: declined to answer In the past 12 months, utilities in danger of being shut off: no In past 12 months, lack of transportation kept you from medical appts, meetings, work, or getting things needed for daily living: no In the past 12 mos, have been you worried that your food would run out before you had money to buy more?: never true In the past 12 mos, the food you bought just didn't last and you didn't have money to buy more?: never true Smoking Status: Never smoker Do you use any of these nicotine containing products: None Second hand tobacco smoke exposure: No Non-prescribed substance use: denies use Are you now , , , , never or living with a partner: Social isolation score (0-1 are the most socially isolated patients): 1 How often does anyone, including family, friends and others, physically hurt you: never How often does anyone, including family, friends and others, insult or talk down to you: never How often does anyone, including family, friends and others, threaten you with harm: never How often does anyone, including family, friends and others, scream or curse at you: never Meds Home Medications and Allergies Home Medications ?Medication ?Instructions ?Recorded ?Confirmed ?Type calcium carbonate (Calcium 600) 600 mg PO DAILY 03/24/23 12/07/24 History multivitamin (Multiple Vitamins 1 tab PO DAILY 03/24/23 12/07/24 History tablet) zinc acetate 50 mg (zinc) capsule 50 mg PO DAILY 03/24/23 12/07/24 History aspirin 81 mg chewable tablet 81 mg PO DAILY 12/06/24 12/07/24 History polyethylene glycol 3350 17 17 g PO DAILY PRN 12/07/24 12/07/24 History gram/dose oral powder (Miralax) Allergies Allergy/AdvReac Type Severity Reaction Status Date / Time Penicillins Allergy Verified 12/06/24 09:03 Exam Narrative: Exam Narrative: General appearance: Alert, cooperative, and in no distress Pulmonary: Chest symmetric, lungs clear bilaterally Cardiovascular Heart: Regular rate and rhythm, S1, S2, no murmurs/rubs/gallops Gastrointestinal Abdominal: soft, mildly distended, uncomfortable to palpation throughout the abdomen but patient states it is not very painful, no peritoneal signs, no tenderness to percussion. Skin: Normal skin color, texture, and turgor. No rashes or lesions. Psychiatric: Alert, cooperative, normal affect. Const: Vital Signs, click to edit/add: Vital Signs - 24 hr 12/07/24 09:42 12/07/24 10:17 12/07/24 10:49 Temperature 97.9 F Pulse Rate 107 H 112 H Pulse Rate [Pulse Oximeter] 98 Respiratory Rate 18 Blood Pressure Blood Pressure [Ri ght Upper Arm] 92/62 Pulse Oximetry 93 88 88 Oxygen Delivery Me thod Room Air 12/07/24 10:56 12/07/24 11:01 12/07/24 11:15 Temperature Pulse Rate 107 H Pulse Rate [Pulse Oximeter] Respiratory Rate 16 Blood Pressure 93/68 Blood Pressure [Ri ght Upper Arm] Pulse Oximetry 90 90 Oxygen Delivery Me thod 12/07/24 11:22 12/07/24 11:23 12/07/24 11:30 Temperature Pulse Rate 110 H 109 H 104 H Pulse Rate [Pulse Oximeter] Respiratory Rate Blood Pressure 92/56 L Blood Pressure [Ri ght Upper Arm] Pulse Oximetry 91 90 89 Oxygen Delivery Me thod 12/07/24 11:31 12/07/24 11:45 12/07/24 12:02 Temperature Pulse Rate 109 H 100 104 H Pulse Rate [Pulse Oximeter] Respiratory Rate 18 Blood Pressure 86/64 L 125/81 Blood Pressure [Ri ght Upper Arm] Pulse Oximetry 90 90 90 Oxygen Delivery Me thod 12/07/24 12:15 12/07/24 12:30 12/07/24 12:31 Temperature Pulse Rate 97 94 88 Pulse Rate [Pulse Oximeter] Respiratory Rate Blood Pressure 125/81 Blood Pressure [Ri ght Upper Arm] Pulse Oximetry 92 90 93 Oxygen Delivery Me thod 12/07/24 12:32 12/07/24 12:51 12/07/24 12:53 Temperature Pulse Rate 93 91 Pulse Rate [Pulse Oximeter] Respiratory Rate Blood Pressure 128/101 H Blood Pressure [Ri ght Upper Arm] Pulse Oximetry 93 96 Oxygen Delivery Me thod 12/07/24 13:00 12/07/24 13:01 12/07/24 13:15 Temperature Pulse Rate 94 95 91 Pulse Rate [Pulse Oximeter] Respiratory Rate Blood Pressure 132/83 Blood Pressure [Ri ght Upper Arm] Pulse Oximetry 92 91 Oxygen Delivery Me thod 12/07/24 13:30 12/07/24 13:31 12/07/24 13:39 Temperature Pulse Rate 89 92 Pulse Rate [Pulse Oximeter] Respiratory Rate Blood Pressure 123/88 Blood Pressure [Ri ght Upper Arm] Pulse Oximetry 91 93 90 Oxygen Delivery Me thod 12/07/24 13:45 12/07/24 14:00 12/07/24 14:01 Temperature Pulse Rate 91 91 92 Pulse Rate [Pulse Oximeter] Respiratory Rate 18 Blood Pressure 120/78 Blood Pressure [Ri ght Upper Arm] Pulse Oximetry 89 90 Oxygen Delivery Me thod 12/07/24 14:15 Temperature Pulse Rate 96 Pulse Rate [Pulse Oximeter] Respiratory Rate Blood Pressure Blood Pressure [Ri ght Upper Arm] Pulse Oximetry 91 Oxygen Delivery Me thod Results Labs Labs: Abnormal lab results 12/07/24 12/07/24 12/07/24 Range/Units 10:56 12:04 13:38 WBC 4.19 L (4.50-11.00) K/uL Neut % (Auto) 79.1 H (42.0-72.0) % Lymph % (Auto) 13.8 L (20-44) % Lymph # (Auto) 0.60 L (0.90-2.90) K/uL Carbon Dioxide 19 L (20-32) mmol/L Anion Gap 17 H (7-15) mEq/L BUN 81 H (7-30) mg/dL Creatinine 3.3 H (0.5-1.5) mg/dL Glucose 156 H (60-115) mg/dL Lactate 3.7 H 3.7 H (0.5-1.9) mmol/L C-Reactive Protein 4.6 H (0.5-1.0) mg/dL Diabetes panel 12/07/24 Range/Units 10:56 Sodium 136 (135-149) mmol/L Potassium 4.6 (3.6-5.1) mmol/L Chloride 100 (96-114) mmol/L Carbon Dioxide 19 L (20-32) mmol/L BUN 81 H (7-30) mg/dL Creatinine 3.3 H (0.5-1.5) mg/dL Glucose 156 H (60-115) mg/dL Calcium 9.2 (8.4-10.6) mg/dL Calcium panel 12/07/24 Range/Units 10:56 Calcium 9.2 (8.4-10.6) mg/dL Pituitary panel 12/07/24 Range/Units 10:56 Sodium 136 (135-149) mmol/L Potassium 4.6 (3.6-5.1) mmol/L Chloride 100 (96-114) mmol/L Carbon Dioxide 19 L (20-32) mmol/L BUN 81 H (7-30) mg/dL Creatinine 3.3 H (0.5-1.5) mg/dL Glucose 156 H (60-115) mg/dL Calcium 9.2 (8.4-10.6) mg/dL Adrenal panel 12/07/24 Range/Units 10:56 Sodium 136 (135-149) mmol/L Potassium 4.6 (3.6-5.1) mmol/L Chloride 100 (96-114) mmol/L Carbon Dioxide 19 L (20-32) mmol/L BUN 81 H (7-30) mg/dL Creatinine 3.3 H (0.5-1.5) mg/dL Glucose 156 H (60-115) mg/dL Calcium 9.2 (8.4-10.6) mg/dL All other labs normal. Progress Note:A&P Assessment and plan (1) Small bowel obstruction: Status: Acute Assessment and Plan: 79-year-old female with no prior intra-abdominal surgical history presents with small-bowel obstruction of unknown etiology. I discussed with the patient and her her CT findings and her laboratory findings. On abdominal CT patient has dilated loops of bowel with a few decompressed loops of bowel in the left lower quadrant. She has no history of intra-abdominal surgery, which is concerning for etiology of her small-bowel obstruction. I recommended to proceed with NG tube placement. We will also do a Gastrografin challenge. If she fails Gastrografin challenge, patient will need exploratory laparotomy. If she passes the Gastrografin challenge, she may still in the future need exploration but it could possibly done laparoscopically when not obstructed. Patient also has a new Aortic stenosis murmur. The hospitalist will be working her up. Patient was noted to have right lung opacities that are concerning for multifocal pneumonia. She does not have symptoms of cough, runny nose, or fevers. The etiology of these opacities is unknown.
[2024-12-07 16:24] LABS: PCR FLU A Negative PCR FLU A (Negative); PCR FLU B Negative PCR FLU B (Negative); PCR RSV Negative PCR RSV (Negative); SARS PCR* Negative SARS-CoV-2 (Negative)
--- NOTE | 2024-12-07 16:28 | PM.IMHP1 ---
Hospitalist- H&P: HPI History of Present Illness Date Seen: 12/07/24 Chief complaint: Small-bowel obstruction Narrative: Julisa Bernard is a 79 year old woman presents with the 4 day history intermittent abdominal pain, nausea vomiting, increased weakness. Denies fevers, rigors, diaphoresis. Has had decreased oral intake, very little to eat at all particularly over the last 1-2 days, but drinking water and soda at times. Marked decrease in urine output stating she only urinated twice yesterday. Has had intermittent nausea and vomiting perhaps 2-3 times daily for the last 2 days. Last episode of vomiting was around 2:00 a.m. today. Has had no blood loss of any sort. No trauma, injury, fever, rigors, diaphoresis. Weakness is such that yesterday she was able to walk with standby assist of her into the clinic in today she can hardly transfer from supine to standing without assist of 1. Nevertheless she denies orthostasis, syncope or near syncope, chest heaviness, pressure, tightness, or pain. Denies cough or dyspnea. Denies upper or lower respiratory tract symptoms. When seen in clinic yesterday she her concern was that she was having constipation. Had already been taking MiraLax 17 g once daily for 2 days. Yesterday was started on senna as well. Despite these 2 medications she still has had no bowel movement. Decreased sleep last night due to her intermittent abdominal pain. Pain described as mild but at times gets worsen may be even radiates into her back. At the moment she says the pain is not even present. Has had no prior abdominal surgeries. Has had no prior pelvic surgeries. Has had 3 normal spontaneous vaginal deliveries. No prior colonoscopy. No family history of colon cancer. Review of Systems Status of ROS: Reports: 6 or more systems reviewed and unremarkable except as noted in History and below Narrative: No recent travel. No pets. No family members with illness. Does not use tobacco products. Rarely consumes alcoholic beverages. Does not consume or use any other street or recreational drugs. She directs that we speak with her , Zeb, should she not be able to make her own healthcare decisions. She confirms with Zeb that he would be willing to do so in my presence. In the event of cardiopulmonary demise, she requests DNR DNI resuscitation status. She tells me about her stepson, Zeb son, Les Bernard, a general surgeon in [place], cell phone [phone], and requests that we contact him to update him on her situation. Our general surgeon, Dr. Borja, will be making this phone call. Zeb handed the contact information for his son directly to our general surgeon. 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) ?Z96.641 - Presence of right artificial hip joint (ICD-10) Social History Narrative: -Zeb What is your current living situation?: I presently have a place to live Problems where you live: declined to answer Problems where you live details: n/a In the past 12 months, utilities in danger of being shut off: no In past 12 months, lack of transportation kept you from medical appts, meetings, work, or getting things needed for daily living: no In the past 12 mos, have been you worried that your food would run out before you had money to buy more?: never true In the past 12 mos, the food you bought just didn't last and you didn't have money to buy more?: never true Smoking Status: Never smoker Do you use any of these nicotine containing products: None Second hand tobacco smoke exposure: No Non-prescribed substance use: denies use Are you now , , , , never or living with a partner: Social isolation score (0-1 are the most socially isolated patients): 1 How often does anyone, including family, friends and others, physically hurt you: never How often does anyone, including family, friends and others, insult or talk down to you: never How often does anyone, including family, friends and others, threaten you with harm: never How often does anyone, including family, friends and others, scream or curse at you: never Meds Home Medications and Allergies Home Medications ?Medication ?Instructions ?Recorded ?Confirmed ?Type calcium carbonate (Calcium 600) 600 mg PO DAILY 03/24/23 12/07/24 History multivitamin (Multiple Vitamins 1 tab PO DAILY 03/24/23 12/07/24 History tablet) zinc acetate 50 mg (zinc) capsule 50 mg PO DAILY 03/24/23 12/07/24 History aspirin 81 mg chewable tablet 81 mg PO DAILY 12/06/24 12/07/24 History polyethylene glycol 3350 17 17 g PO DAILY PRN 12/07/24 12/07/24 History gram/dose oral powder (Miralax) Allergies Allergy/AdvReac Type Severity Reaction Status Date / Time Penicillins Allergy Rash Verified 12/07/24 16:41 Exam Narrative: Exam Narrative: I examined the patient in the emergency department with her , Zeb, near her side. Appears anxious but for the most part comfortable. Does not speak much. Nevertheless is alert and oriented to self, place, time, situation. Slow to respond to some questions. Cooperative and friendly. Vision and hearing are adequate. Neck is supple. No JVD or hepatojugular reflux. No carotid bruits but can hear heart murmur up into the right side of the neck. No head neck lymphadenopathy. Normal external auditory canals and tympanic membranes. Midline nasal septum. Dry buccal mucosa. Dentition in fair repair. Conjugate gaze. Able to sit from supine position with assist. Disposition chain does not cause worsening or improvement of abdominal discomfort, again states has no abdominal discomfort right now at all. Lungs for the most part clear to auscultation save some end inspiratory rales in the right base. No wheezing or rhonchi. Heart tones with regular rhythm, normal S1-S2. Grade 4/6 holosystolic murmur across the precordium radiating into the neck, axilla, in hurt all the way down into the epigastrium. No gallops or rubs. PMI not laterally displaced. Abdomen with occasional gurgling sounds. Hyper tympanitic in the epigastrium. No rebound or guarding. Subjective discomfort at times diffusely. Extremities without edema. Moves all 4 extremities. Palpable pulses upper and lower extremities. No focal motor neurologic deficits. Const: Vital Signs, click to edit/add: Vital Signs - 24 hr 12/07/24 09:42 12/07/24 10:17 12/07/24 10:49 Temperature 97.9 F Pulse Rate 107 H 112 H Pulse Rate [Pulse Oximeter] 98 Pulse Rate [Right Radial] Respiratory Rate 18 Blood Pressure Blood Pressure [Ri ght Arm] Blood Pressure [Ri ght Upper Arm] 92/62 Pulse Oximetry 93 88 88 Oxygen Delivery Me thod Room Air 12/07/24 10:56 12/07/24 11:01 12/07/24 11:15 Temperature Pulse Rate 107 H Pulse Rate [Pulse Oximeter] Pulse Rate [Right Radial] Respiratory Rate 16 Blood Pressure 93/68 Blood Pressure [Ri ght Arm] Blood Pressure [Ri ght Upper Arm] Pulse Oximetry 90 90 Oxygen Delivery Me thod 12/07/24 11:22 12/07/24 11:23 12/07/24 11:30 Temperature Pulse Rate 110 H 109 H 104 H Pulse Rate [Pulse Oximeter] Pulse Rate [Right Radial] Respiratory Rate Blood Pressure 92/56 L Blood Pressure [Ri ght Arm] Blood Pressure [Ri ght Upper Arm] Pulse Oximetry 91 90 89 Oxygen Delivery Me thod 12/07/24 11:31 12/07/24 11:45 12/07/24 12:02 Temperature Pulse Rate 109 H 100 104 H Pulse Rate [Pulse Oximeter] Pulse Rate [Right Radial] Respiratory Rate 18 Blood Pressure 86/64 L 125/81 Blood Pressure [Ri ght Arm] Blood Pressure [Ri ght Upper Arm] Pulse Oximetry 90 90 90 Oxygen Delivery Me od 12/07/24 12:15 12/07/24 12:30 12/07/24 12:31 Temperature Pulse Rate 97 94 88 Pulse Rate [Pulse Oximeter] Pulse Rate [Right Radial] Respiratory Rate Blood Pressure 125/81 Blood Pressure [Ri ght Arm] Blood Pressure [Ri ght Upper Arm] Pulse Oximetry 92 90 93 Oxygen Delivery Me thod 12/07/24 12:32 12/07/24 12:51 12/07/24 12:53 Temperature Pulse Rate 93 91 Pulse Rate [Pulse Oximeter] Pulse Rate [Right Radial] Respiratory Rate Blood Pressure 128/101 H Blood Pressure [Ri ght Arm] Blood Pressure [Ri ght Upper Arm] Pulse Oximetry 93 96 Oxygen Delivery Me thod 12/07/24 13:00 12/07/24 13:01 12/07/24 13:15 Temperature Pulse Rate 94 95 91 Pulse Rate [Pulse Oximeter] Pulse Rate [Right Radial] Respiratory Rate Blood Pressure 132/83 Blood Pressure [Ri ght Arm] Blood Pressure [Ri ght Upper Arm] Pulse Oximetry 92 91 Oxygen Delivery Vt thod 12/07/24 13:30 12/07/24 13:31 12/07/24 13:39 Temperature Pulse Rate 89 92 Pulse Rate [Pulse Oximeter] Pulse Rate [Right Radial] Respiratory Rate Blood Pressure 123/88 Blood Pressure [Ri ght Arm] Blood Pressure [Ri ght Upper Arm] Pulse Oximetry 91 93 [facility] 13:45 12/07/24 14:00 12/07/24 14:01 Temperature Pulse Rate 91 91 92 Pulse Rate [Pulse Oximeter] Pulse Rate [Right Radial] Respiratory Rate 18 Blood Pressure 120/78 Blood Pressure [Ri ght Arm] Blood Pressure [Ri ght Upper Arm] Pulse Oximetry 89 90 [facility] 12/[facility] 14:15 12/07/24 14:31 12/07/24 14:32 Temperature Pulse Rate 96 90 88 Pulse Rate [Pulse Oximeter] Pulse Rate [Right Radial] Respiratory Rate Blood Pressure 103/64 Blood Pressure [Ri ght Arm] Blood Pressure [Ri ght Upper Arm] Pulse Oximetry 91 96 95 [facility] 12/[facility]/24 14:45 12/07/24 15:00 12/07/24 15:01 Temperature Pulse Rate 89 94 96 Pulse Rate [Pulse Oximeter] Pulse Rate [Right Radial] Respiratory Rate 19 Blood Pressure 105/67 Blood Pressure [Ri ght Arm] Blood Pressure [Ri ght Upper Arm] Pulse Oximetry 95 91 96 [facility] 12/[facility]/24 15:15 12/07/24 15:30 12/07/24 15:31 Temperature Pulse Rate 91 94 94 Pulse Rate [Pulse Oximeter] Pulse Rate [Right Radial] Respiratory Rate Blood Pressure 108/67 Blood Pressure [Ri ght Arm] Blood Pressure [Ri ght Upper Arm] Pulse Oximetry 95 94 92 [facility] 12[facility]/24 15:45 12/07/24 16:05 Temperature Pulse Rate 95 Pulse Rate [Pulse Oximeter] Pulse Rate [Right Radial] 96 Respiratory Rate 20 Blood Pressure Blood Pressure [Ri ght Arm] 103/72 Blood Pressure [Ri ght Upper Arm] Pulse Oximetry 82 L 93 Oxygen Delivery Me thod Room Air Hospitalist - H&P: Result Labs Labs: Short CBC 12/07/24 Range/Units 10:56 WBC 4.19 L (4.50-11.00) K/uL Hgb 14.7 (12.0-16.0) gm/dL Hct 43.7 (33.0-51.0) % Plt Count 185 (140-440) K/uL BMP 12/07/24 10:56 Sodium 136 Potassium 4.6 Chloride 100 Carbon Dioxide 19 L BUN 81 H Creatinine 3.3 H Glucose 156 H Calcium 9.2 ECG Attestation: I personally reviewed and interpreted this ECG as follows: ECG interpretation date: 12/07/24 Interpretation: Normal sinus rhythm. No infarct or ischemic pattern. Imaging Abdominal x-ray: Attestation: I have reviewed the pertinent imaging results. Radiologist's impression: FINDINGS: Multiple dilated small bowel loops with associated air-fluid levels. Small bowel dilatation measures up to 3.9 cm. No evidence of free intraperitoneal gas. Abdominal soft tissues elsewhere as imaged are unremarkable. Apparent new ill-defined opacities at the right lung base. Bone demineralization. Degenerative changes spine and pelvis. Right hip arthroplasty appears unchanged. IMPRESSION: 1. Small bowel dilatation with air-fluid levels suggest obstruction or underlying enteritis. 2. New ill-defined opacities at the right lung base, concerning for pneumonia/aspiration. CT Chest/Ab/Pelvis: Attestation: I have reviewed the pertinent imaging results. Radiologist's impression: FINDINGS: CHEST: Lungs and pleura: Bilateral multifocal peribronchial ground-glass opacities, predominantly in the right middle lobe and right lower lobe. Heart and vessels: No cardiomegaly, no pericardial effusion. Atherosclerotic coronary artery calcifications. Thyroid and lower neck: No suspicious thyroid nodule. Mediastinum/saritha: No lymphadenopathy. Chest wall: No axillary lymphadenopathy. ABDOMEN/PELVIS: Evaluation of solid organs is limited secondary to lack of IV contrast administration. Liver: No suspicious focal hepatic lesion. Gallbladder and bile ducts: Hydropic gallbladder. Trace pericholecystic inflammation the fundus versus motion artifact. No calcified gallstones identified. Pancreas: Unremarkable. Spleen: Unremarkable. Adrenal glands: Adreniform thickening of the right adrenal gland. Unremarkable appearance of the left adrenal gland. Kidneys: No renal calculi or hydronephrosis bilaterally. Retroperitoneum: No lymphadenopathy. Bowel and mesentery: Extensive colonic diverticulosis, without evidence of acute diverticulitis. Multiple loops of fluid-filled dilated small bowel, with transition point in the left lower quadrant, compatible with small bowel obstruction. No significant ascites. No pneumoperitoneum. Bladder: Unremarkable for degree of distention. Reproductive organs: Suboptimally evaluated secondary to streak artifact. Pelvic lymph nodes: No definite lymphadenopathy. Vessels: Atherosclerotic calcifications. Abdominal wall: No acute abdominal wall abnormality. Bones: Multilevel degenerative changes of the spine. Bones are osteopenic. Right hip arthroplasty. IMPRESSION: 1. Numerous loops of fluid-filled dilated small bowel with transition point in the left lower quadrant, compatible with small bowel obstruction. 2. Hydropic gallbladder. Trace pericholecystic inflammation at the fundus versus motion artifact. Correlate clinically for any signs/symptoms of acute cholecystitis. 3. Multifocal pneumonia, right greater than left. US - abdomen: Radiologist's impression: FINDINGS: Liver: Normal in size and contour. The hepatic echotexture is normal. No suspicious hepatic masses. Gallbladder: Mildly distended gallbladder. No gallbladder wall thickening. No pericholecystic edema. Cholelithiasis. No definite sonographic Whitley`s sign. Common bile duct: Measures 4 mm. IMPRESSION: Cholelithiasis without definite sonographic evidence of acute cholecystitis. Assessment and Plan Assessment and plan (1) Small bowel obstruction: Problem comment: - unclear if this is complete small bowel obstruction versus a partial small bowel obstruction - transition point in left lower quadrant. No prior abdominal or pelvic surgeries. - general surgery consulted. NPO. NG tube to low intermittent suction. Gastrografin challenge. Surgery will reassess in the morning for possibility of bringing patient to the OR. Status: Acute (2) SIRS (systemic inflammatory response syndrome): Problem comment: - low blood pressure, elevated heart rate, elevated lactate - IV fluids, monitor lactate Status: Acute (3) Acute kidney injury: Problem comment: - very little oral intake over the past 4 days - baseline creatinine of 1.0. Creatinine on 12/07/2024 of 3.3 - IV fluids. Urethral catheter. Daily weight. Measure input and output. Follow labs. Status: Acute (4) Multifocal pneumonia: Problem comment: - no prodromal symptoms. Seemingly occurring after several episodes of nausea and vomiting. Highly suspicious for aspiration. - single dose of meropenem given in the emergency department. Transition to ceftriaxone 1 g IV Q 24 hours. Not affecting oxygen saturation. Monitor. Status: Acute (5) Cholelithiasis: Problem comment: - suspect this is an incidental finding. Monitor closely. Status: Acute (6) Heart murmur: Problem comment: - holosystolic precordial murmur radiating to neck and left axilla. Can hear murmur all the way down into the epigastrium. - check echocardiogram. Status: Acute Plan 1. Reviewed impression with patient and her , Zeb. 2. Our general surgeon, Dr. Borja, will be calling and discussing the situation with the patient's luana, general surgeon, Les Bernard, [phone]. 3. Answered patient's and 's questions to their satisfaction. 4. They are agreeable with above stated plans and recommendations.
[2024-12-07] MEDS: cefTRIAXone 1 GM in 0.9 % SODIUM CHLORIDE Mini-bag 100 ML IVPB (17:58)
[2024-12-07] MEDS: PANTOPRAZOLE SODIUM 40 MG INJ IVP (17:59)
[2024-12-07] MEDS: 0.9 % SODIUM CHLORIDE 1000 ml 1,000 ML 125 ML IV ×2 (17:59→20:43)
[2024-12-07 19:28] LABS: HCO3 VBG 22 mmol/L (21-28); PCO2 VBG 34 mmHG (40-50); PO2 VBG 74.2 mmHG (25-47); pH VBG 7.412 (7.32-7.43)
[2024-12-07] MEDS: phenoL 1.4 % THROAT SPRAY 1 SPRAY MUCOUS MEM (19:53)
[2024-12-07] MEDS: DIATRIZOATE MEGLUMINE, SODIUM 120 ML SOLUTION 90 ML NG (22:59)
[2024-12-08] VITALS (29 sets, daily range): BP systolic 98–116; BP diastolic 63–75; PULSE 85–99; RESP 13–21; TEMP 36.2–38.1; O2SAT 88–98
[2024-12-08] MEDS: 0.9 % SODIUM CHLORIDE 1000 ml 1,000 ML 125 ML IV ×3 (04:29→22:23)
[2024-12-08 06:30] LABS: HCO3 VBG 23 mmol/L (21-28); Lactate* 1.1 mmol/L (0.5-1.9); PCO2 VBG 39 mmHG (40-50); PO2 VBG 49.9 mmHG (25-47); pH VBG 7.379 (7.32-7.43)
[2024-12-08 06:33] LABS: Basophils Absolute Auto 0.01 K/uL (0.00-0.30); Basophils Percent Auto 0.2 % (0.0-3.0); Eosinophils Absolute Auto 0.05 K/uL (0.00-0.50); Eosinophils Percent Auto 0.9 % (0.0-7.0); Hematocrit 35.4 % (33.0-51.0); Hemoglobin* 11.8 gm/dL (12.0-16.0); Immature Granulocytes Abs Auto 0.04 K/uL (0.00-0.30); Immature Granulocytes Pct Auto 0.8 %; Lymphocytes Percent Auto 7.7 % (20-44); Mean Corpuscular HGB Conc 33 gm/dL (32-36); Mean Corpuscular Hemoglobin 32 pg (26-34); Mean Corpuscular Volume 96 fL (80-100); Monocytes Percent Auto 5.3 % (0.0-11.0); Neutrophils Percent Auto 85.1 % (42.0-72.0); Platelet Count* 220 K/uL (140-440); RDW Coefficient of Variation % 12.8 % (11.5-15.5)
[2024-12-08 06:38] LABS: Slide Review Reflex Yes
[2024-12-08 06:55] LABS: Chloride* 107 mmol/L (96-114); Potassium* 3.9 mmol/L (3.6-5.1); Sodium* 137 mmol/L (135-149)
[2024-12-08 06:57] LABS: Creatinine* 1.5 mg/dL (0.5-1.5); Est. Creatinine Clearance* 24.33; Estimated Glomerular Filt Rate 35 ml/min
[2024-12-08 06:58] LABS: Anion Gap 10 mEq/L (7-15); Blood Urea Nitrogen* 70 mg/dL (7-30); Carbon Dioxide* 20 mmol/L (20-32); Cholesterol* 106 mg/dL (90-199); Glucose* 99 mg/dL (60-115); Lipase* 14 U/L (23-300); Triglycerides* 90 mg/dL (40-149)
[2024-12-08 06:59] LABS: Calcium* 8.3 mg/dL (8.4-10.6); HDL Cholesterol* 56 mg/dL (>=50); LDL Cholesterol Calculated 32 mg/dL (<100); Magnesium* 2.4 mg/dL (1.5-2.6)
[2024-12-08 07:06] LABS: Troponin I* 0.02 ng/mL (0.01-0.04)
[2024-12-08 07:19] LABS: Slide Review Acceptable Review (Acceptable)
--- NOTE | 2024-12-08 07:32 | PC.NURSE ---
End of shift note [id number]: Pt noted to be alert & oriented x 4 with intermittent forgetfulness and [place] noted. NG in place to LIS after Gastrografin challenge completed per order. Pt tolerating NPO diet with no c/o N/V. Pt has been denying pain when asked. Tele in place with NSR with prolonged QT. Beltran catheter placed last evening per order. Pt transfers/ambulates with assist of 1 using gait belt and FWW. IV NS running per order. Pt has refused SCDs most of shift when encouraged though was compliant with wearing TEDs. Bed alarm on for safety, call light within reach. EKG was done this morning per order. Results: Sinus rhythm with short NV, nonspecific T wave abnormality, abnormal EKG. [employer] left message for Juan Luis ZEE providing update of EKG results. No new orders received. Pt has ECHO scheduled to be completed today.
--- NOTE | 2024-12-08 08:49 | PM.IMPN1 ---
Progress Note: A&P Assessment and plan (1) Small bowel obstruction: Problem details: - no relief with gastrograffin; plan is OR this morning - transition point in left lower quadrant. No prior abdominal or pelvic surgeries. Status: Acute (2) Bacteremia due to Escherichia coli: Problem details: 16hours positive has rec'd meropenem; ceftriaxone hemodynamically stable f/u blood culture pulled 12/08 Status: Acute (3) Acute kidney injury: Problem details: -prerenal; poor intake - baseline creatinine of 1.0. Creatinine at admission 3.3 - 12/08: 1.5 Status: Acute (4) Heart murmur: Problem details: - holosystolic precordial murmur radiating to neck and left axilla. Can hear murmur all the way down into the epigastrium. - check echocardiogram - scheduled for 12/09 - should not hold up surgery Status: Acute (5) Multifocal pneumonia: Problem details: - no prodromal symptoms. Seemingly occurring after several episodes of nausea and vomiting. Highly suspicious for aspiration. - single dose of meropenem given in the emergency department, followed by 1 gram ceftriaxone 12/07 - abx prior to surgery per Dr. To; likely to continue rocephin post op Status: Acute (6) SIRS (systemic inflammatory response syndrome): Problem details: - low blood pressure, elevated heart rate, elevated lactate - IV fluids, monitor lactate - 12/08 resolved Status: Acute (7) Cholelithiasis: Problem details: - suspect this is an incidental finding. Monitor closely. Status: Acute Subjective Date Seen: 12/08/24 Interval history: Daily Progress Note - Hospital Medicine #: 2 CC: SBO, GAURAV, BACTEREMIA 24 HOUR UPDATE: 79 y/o comes in with 1st life time SBO; no previous abdominal surgeries. Notable Labs, Micro, Rads, Interventions: Vitals are stable. She is on room air. 92%. Weight 55.3 kilos Hemoglobin is down to 11.8 from 14.7, hemodilution. White blood cell count and platelet count are normal. INR is normal at 1.05 Blood gas is normal, pH 7.37 Electrolytes are normal. Her creatinine has improved from 3.3-1.5. BUN is still 70. Her elevated lactate has resolved Lipase is normal CRP has increased from 4.6-22.0 Post Gastrografin abdominal x-ray shows no contrast distal to the stomach. I reviewed admission imaging which included a chest abdomen pelvis CT, gallbladder ultrasound. Blood culture is growing E coli and less than 12 hours. EKG reviewed without evidence of ischemia, dynamic changes or arrhythmia. No QT prolongation. Objective: Awake, alert. NG and Beltran in place Vitals: see above Lungs: Clear. No rales or rhonchi Cardiac: S1S2. Regular rhythm. Holosystolic murmur. Echo will not be done until 12/09. Abdomen: Soft Extremities: No edema Disposition/Potential discharge - TBD, surgery today. Today I spent 50minutes seeing the patient, reviewing Expanse and EPIC notes/diagnostics, discussing the care plan with our care time that includes social work, PT/OT, pharmacy, RT, penitentiary and documenting my impressions and plan in the medical record. Exam Const: Vital Signs, click to edit/add: Vital Signs - 24 hr 12/07/24 09:42 12/07/24 10:17 12/07/24 10:49 Temperature 97.9 F Pulse Rate 107 H 112 H Pulse Rate [Pulse Oximeter] 98 Pulse Rate [Right Radial] Respiratory Rate 18 Blood Pressure Blood Pressure [Ri ght Arm] Blood Pressure [Ri ght Upper Arm] 92/62 Pulse Oximetry 93 88 88 Oxygen Delivery Me thod Room Air 12/07/24 10:56 12/07/24 11:01 12/07/24 11:15 Temperature Pulse Rate 107 H Pulse Rate [Pulse Oximeter] Pulse Rate [Right Radial] Respiratory Rate 16 Blood Pressure 93/68 Blood Pressure [Ri ght Arm] Blood Pressure [Ri ght Upper Arm] Pulse Oximetry 90 90 Oxygen Delivery Me thod 12/07/24 11:22 12/07/24 11:23 12/07/24 11:30 Temperature Pulse Rate 110 H 109 H 104 H Pulse Rate [Pulse Oximeter] Pulse Rate [Right Radial] Respiratory Rate Blood Pressure 92/56 L Blood Pressure [Ri ght Arm] Blood Pressure [Ri ght Upper Arm] Pulse Oximetry 91 90 89 Oxygen Delivery Me thod 12/07/24 11:31 12/07/24 11:45 12/07/24 12:02 Temperature Pulse Rate 109 H 100 104 H Pulse Rate [Pulse Oximeter] Pulse Rate [Right Radial] Respiratory Rate 18 Blood Pressure 86/64 L 125/81 Blood Pressure [Ri ght Arm] Blood Pressure [Ri ght Upper Arm] Pulse Oximetry 90 90 90 Oxygen Delivery Me thod 12/07/24 12:15 12/07/24 12:30 12/07/24 12:31 Temperature Pulse Rate 97 94 88 Pulse Rate [Pulse Oximeter] Pulse Rate [Right Radial] Respiratory Rate Blood Pressure 125/81 Blood Pressure [Ri ght Arm] Blood Pressure [Ri ght Upper Arm] Pulse Oximetry 92 90 93 Oxygen Delivery Me thod 12/07/24 12:32 12/07/24 12:51 12/07/24 12:53 Temperature Pulse Rate 93 91 Pulse Rate [Pulse Oximeter] Pulse Rate [Right Radial] Respiratory Rate Blood Pressure 128/101 H Blood Pressure [Ri ght Arm] Blood Pressure [Ri ght Upper Arm] Pulse Oximetry 93 96 Oxygen Delivery Me od 12/07/24 13:00 12/07/24 13:01 12/07/24 13:15 Temperature Pulse Rate 94 95 91 Pulse Rate [Pulse Oximeter] Pulse Rate [Right Radial] Respiratory Rate Blood Pressure 132/83 Blood Pressure [Ri ght Arm] Blood Pressure [Ri ght Upper Arm] Pulse Oximetry 92 91 Oxygen Delivery Me thod 12/07/24 13:30 12/07/24 13:31 12/07/24 13:39 Temperature Pulse Rate 89 92 Pulse Rate [Pulse Oximeter] Pulse Rate [Right Radial] Respiratory Rate Blood Pressure 123/88 Blood Pressure [Ri ght Arm] Blood Pressure [Ri ght Upper Arm] Pulse Oximetry 91 93 90 Oxygen Delivery Me thod 12/07/24 13:45 12/07/24 14:00 12/07/24 14:01 Temperature Pulse Rate 91 91 92 Pulse Rate [Pulse Oximeter] Pulse Rate [Right Radial] Respiratory Rate 18 Blood Pressure 120/78 Blood Pressure [Ri ght Arm] Blood Pressure [Ri ght Upper Arm] Pulse Oximetry 89 90 Oxygen Delivery Me thod 12/07/24 14:15 12/07/24 14:31 12/07/24 14:32 Temperature Pulse Rate 96 90 88 Pulse Rate [Pulse Oximeter] Pulse Rate [Right Radial] Respiratory Rate Blood Pressure 103/64 Blood Pressure [Ri ght Arm] Blood Pressure [Ri ght Upper Arm] Pulse Oximetry 91 96 95 Oxygen Delivery Me thod 12/07/24 14:45 12/07/24 15:00 12/07/24 15:01 Temperature Pulse Rate 89 94 96 Pulse Rate [Pulse Oximeter] Pulse Rate [Right Radial] Respiratory Rate 19 Blood Pressure 105/67 Blood Pressure [Ri ght Arm] Blood Pressure [Ri ght Upper Arm] Pulse Oximetry 95 91 96 Oxygen Delivery Me thod 12/07/24 15:15 12/07/24 15:30 12/07/24 15:31 Temperature Pulse Rate 91 94 94 Pulse Rate [Pulse Oximeter] Pulse Rate [Right Radial] Respiratory Rate Blood Pressure 108/67 Blood Pressure [Ri ght Arm] Blood Pressure [Ri ght Upper Arm] Pulse Oximetry 95 94 92 Oxygen Delivery Me thod 12/07/24 15:45 12/07/24 16:05 12/07/24 16:05 Temperature Pulse Rate 95 Pulse Rate [Pulse Oximeter] Pulse Rate [Right Radial] 96 Respiratory Rate 20 20 Blood Pressure Blood Pressure [Ri ght Arm] 103/72 Blood Pressure [Ri ght Upper Arm] Pulse Oximetry 82 L 93 [facility] 12/07/24 19:42 12/07/24 23:00 12/07/24 23:00 Temperature 98.6 F 98.6 F Pulse Rate Pulse Rate [Pulse Oximeter] Pulse Rate [Right Radial] 87 87 84 Respiratory Rate 20 18 18 Blood Pressure Blood Pressure [Ri ght Arm] 110/60 114/65 Blood Pressure [Ri ght Upper Arm] Pulse Oximetry 91 [facility] 12/07/24 23:14 12/07/24 23:51 12/08/24 03:00 Temperature 98.7 F Pulse Rate 82 Pulse Rate [Pulse Oximeter] Pulse Rate [Right Radial] 90 Respiratory Rate 18 18 Blood Pressure Blood Pressure [Ri ght Arm] 107/69 Blood Pressure [Ri ght Upper Arm] Pulse Oximetry 91 91 Oxygen Delivery [facility] thod Room Air Room Air 12/08/24 05:15 12/08/24 07:30 Temperature 98.3 F Pulse Rate Pulse Rate [Pulse Oximeter] 94 Pulse Rate [Right Radial] 90 Respiratory Rate 16 Blood Pressure Blood Pressure [Ri ght Arm] 101/64 109/71 Blood Pressure [Ri ght Upper Arm] Pulse Oximetry 92 [facility] Labs Labs: Laboratory Results - last 24 hr 12/07/24 12/07/24 12/07/24 10:56 12:04 12:10 WBC 4.19 L RBC 4.55 Hgb 14.7 Hct 43.7 MCV 96 MCH 32 MCHC 34 RDW Coeff of Anderson 13.0 Plt Count 185 Neut % (Auto) 79.1 H Lymph % (Auto) 13.8 L Vernon % (Auto) 6.7 Eos % (Auto) 0.0 Baso % (Auto) 0.2 Neut # (Auto) 3.30 Lymph # (Auto) 0.60 L Vernon # (Auto) 0.30 Eos # (Auto) 0.00 Baso # (Auto) 0.00 Abs Immat Gran (auto) 0.00 Imm/Tot Granulo (auto) 0.2 Diff Slide Review Acceptable Review INR VBG pH VBG pCO2 VBG pO2 VBG HCO3 Sodium 136 Potassium 4.6 Chloride 100 Carbon Dioxide 19 L Anion Gap 17 H BUN 81 H Creatinine 3.3 H Estimated Creat Clear 11.06 Estimated GFR 14 Glucose 156 H Lactate 3.7 H Calcium 9.2 Phosphorus Magnesium Troponin I C-Reactive Protein 4.6 H Triglycerides Cholesterol LDL Cholesterol, Calc HDL Cholesterol Lipase SARS-CoV-2 (PCR) Influenza Type A (PCR) Influenza Type B (PCR) RSV (PCR) Lab Acknowledgement New Spec Needed 12/07/24 12/07/24 12/07/24 13:38 15:40 19:25 WBC RBC Hgb Hct MCV MCH MCHC RDW Coeff of Anderson Plt Count Neut % (Auto) Lymph % (Auto) Vernon % (Auto) Eos % (Auto) Baso % (Auto) Neut # (Auto) Lymph # (Auto) Vernon # (Auto) Eos # (Auto) Baso # (Auto) Abs Immat Gran (auto) Imm/Tot Granulo (auto) Diff Slide Review INR 1.05 VBG pH 7.412 VBG pCO2 34 L VBG pO2 74.2 H VBG HCO3 22 Sodium Potassium Chloride Carbon Dioxide Anion Gap BUN Creatinine Estimated Creat Clear Estimated GFR Glucose Lactate 3.7 H 1.0 Calcium Phosphorus Magnesium Troponin I C-Reactive Protein Triglycerides Cholesterol LDL Cholesterol, Calc HDL Cholesterol Lipase SARS-CoV-2 (PCR) Negative SARS-CoV-2 Influenza Type A (PCR) Negative PCR FLU A Influenza Type B (PCR) Negative PCR FLU B RSV (PCR) Negative PCR RSV Lab Acknowledgement 12/08/24 06:09 WBC 5.30 RBC 3.70 L Hgb 11.8 L Hct 35.4 MCV 96 MCH 32 MCHC 33 RDW Coeff of Anderson 12.8 Plt Count 220 Neut % (Auto) 85.1 H Lymph % (Auto) 7.7 L Vernon % (Auto) 5.3 Eos % (Auto) 0.9 Baso % (Auto) 0.2 Neut # (Auto) 4.50 Lymph # (Auto) 0.40 L Vernon # (Auto) 0.30 Eos # (Auto) 0.05 Baso # (Auto) 0.01 Abs Immat Gran (auto) 0.04 Imm/Tot Granulo (auto) 0.8 Diff Slide Review Acceptable Review INR VBG pH 7.379 VBG pCO2 39 L VBG pO2 49.9 H VBG HCO3 23 Sodium 137 Potassium 3.9 Chloride 107 Carbon Dioxide 20 Anion Gap 10 BUN 70 H Creatinine 1.5 Estimated Creat Clear 24.33 Estimated GFR 35 Glucose 99 Lactate 1.1 Calcium 8.3 L Phosphorus 4.0 Magnesium 2.4 Troponin I 0.02 C-Reactive Protein 22.0 H Triglycerides 90 Cholesterol 106 LDL Cholesterol, Calc 32 HDL Cholesterol 56 Lipase 14 L SARS-CoV-2 (PCR) Influenza Type A (PCR) Influenza Type B (PCR) RSV (PCR) Lab Acknowledgement
--- NOTE | 2024-12-08 09:54 | REH.PT ---
Hold PT/OT today per MD. Pt scheduled for abdominal sx. Will Evaluate when appropriate.
--- NOTE | 2024-12-08 10:02 | REH.OT ---
Orders received for OT. HOLD therapy for today; pt to have surgery this AM.
[2024-12-08] MEDS: cefTRIAXone 2 GM in 0.9 % SODIUM CHLORIDE Mini-bag 100 ML IVPB (11:20)
--- NOTE | 2024-12-08 11:38 | W.PM.NB ---
Nerve Block Nerve Block Time Seen by Provider: 11:25 Date Seen: 12/08/24 Type of block requested by surgeon for post-operative analgesia: TAP Side: bilateral Time out performed: Yes Verification of patient name: Yes Verification of date of : Yes Site marking: site marked Name of person performing procedure: Sreedhar Continuous monitoring Was continuous monitoring of O2 sat, B/P, bus driver/monitor, recorded every 15 minutes?: Yes Procedure Checklist: sterile prep, needles and gloves Ultrasound guided. Images saved: Yes Medications given in 5ml increments after negative aspiration: Marcaine %: 0.25 mL: 20 Needle gauge: 20 and Exparel mL: 10 Patient tolerated procedure well: Yes Additional comments: Needle noted between internal oblique and transversus abdominus. Local spread visualized Block Charges Block Charge (with Pro Fee): TAP Bilateral Use of Ultrasound Machine for Block: Yes- US Guidance/pain block
--- NOTE | 2024-12-08 11:39 | W.ANESCHARGE ---
Anesthesia Charges Start Date/Time Anesthesia Start Date: 12/08/24 Anesthesia Start Time: 11:15 Stop Date/Time Anesthesia Stop Date: 12/08/24 Anesthesia Stop Time: 12:41 Summary Emergency: MDA Extremes of Age - Over 70 or under 1: MDA Coding CPT Codes CPT Codes: ANESTH SURG UPPER ABDOMEN - 25295 ([id number]) P3 - PATIENT W/SEVERE SYS DISEASE, QK - PUMP HOUSE TECHNICIAN 2-4 CNCRNT ANES PROC, QX - AIR OPERATIONS MANAGER SVC W/ MD MED DIRECTION Additional Codes: Summary - Emergency: MDA ([id number]) Summary - Extremes of Age - Over 70 or under 1: MDA ([id number])
[2024-12-08] MEDS: 0.9 % SODIUM CHLORIDE 500 ML 500 ML IV (11:45)
--- NOTE | 2024-12-08 12:34 | PM.GSPRC ---
Operative Note Date of procedure: 12/08/24 Pre-op diagnosis: 1. Small-bowel obstruction with no previous history of abdominal surgery. 2. Gram-negative bacteremia. Post-op diagnosis: 1. Small-bowel obstruction caused by a single omental adhesion. Type of Procedure: 1. Exploratory laparotomy. 2. Lysis of adhesions. Indications: 79-year-old female with no previous history of intra-abdominal surgery presented with several days of abdominal pain and vomiting. She was paretic the passing gas. she was initially thought to have constipation and was sent home from emergency room with laxatives. However patient continued to have pain and re-presented to emergency room. Upon her workup She was found to have normal WBC with elevated CRP. An abdominal CT was obtained that showed diffusely dilated loops of small bowel with a transition point in the left lower quadrant. There were decompressed small bowel loops in the left lower quadrant. Large intestine was decompressed. On clinical exam patient had distended abdomen that was uncomfortable to palpation with no peritoneal signs. An NG tube was placed and a Gastrografin challenge was administered. Abdominal x-ray after doing a Gastrografin challenge showed no contrast in the small intestine or the stomach. Patient also grew E coli in her blood culture. Given patient's clinical history and her surgical history, exploratory laparotomy was recommended. The procedure was discussed in detail. The risks associated procedure including infection, bleeding, injury to intra-abdominal organs, and the need for additional procedures were all discussed with the patient, and she agreed to proceed. Procedure Description: After discussing the risks and benefits of the procedure, the patient signed informed consent.? The operative site was marked and the patient was brought to the operating room and placed on the operating table in supine position.? Care was taken to pad the patient's pressure points.?? The patient was then intubated by anesthesia.?? The operative site was then prepped and draped in the usual sterile fashion.? A time-out was then performed. A midline laparotomy incision was made with a scalpel. Subcutaneous fat was divided with cautery. Anterior fascia was grasped with Phyllis clamps and incised with Metzenbaum scissors. The abdomen was entered and the fascial incision was extended superiorly and inferiorly with cautery. Moderate amount of ascites was noted but no succus was seen. Ascites was suctioned out. Dilated loops of bowel were eviscerated and the omentum appeared to be tethered to the retroperitoneum with a single adhesion. This adhesion was the culprit of patient small-bowel obstruction and constricted small-bowel in the proximal ileum. This adhesion was divided with cautery. The small bowel was then eviscerated and examined from the terminal ileum to the ligament of Treitz. No additional adhesions were seen. The mesentery adjacent to the constricted segment of small intestine was ulcerated with no bleeding and minimal edema. The segment that was constricted by the adhesion had serosal injury but no perforation and no serosal tear. This was oversewn with interrupted 3-0 silk sutures. The small bowel was well perfused. The segment was palpated and was widely patent. The rest of the small intestine was then examined and no additional small bowel injury or adhesions were identified. The nasogastric tube was palpated in the stomach and appeared to be in good position. The large intestine was then examined further. the superior rectum was palpated and was without masses. The sigmoid colon, descending colon, transverse colon, and ascending colon as well as appendix were visualized and no masses were palpated or seen. Uterus appeared to be normal and bilateral ovaries were not enlarged and without masses. Abdomen was irrigated with warm normal saline. The anterior fascia was then closed with 2 running 0-0 PDS sutures. Subcutaneous fat was reapproximated with Vicryl sutures. The skin was closed with a running 4-0 Monocryl stitch. Steri-Strips and sterile pressure dressings were placed over the incision. All counts were correct at the end of the case. ? The patient was then woken and transported to the recovery area in stable condition. ? The patient tolerated the procedure well. Findings: A single adhesion of omentum to the retroperitoneum was constricting the small intestine. Anesthesia: GETA Surgeon: Jose Alberto To MD Estimated blood loss (mL): 5 Condition: stable Disposition: PACU
--- NOTE | 2024-12-08 12:41 | W.ANESCHARGE ---
Anesthesia Charges Start Date/Time Anesthesia Start Date: 12/08/24 Anesthesia Start Time: 11:15 Stop Date/Time Anesthesia Stop Date: 12/08/24 Anesthesia Stop Time: 12:41 Summary Emergency: TOBACCO HANGER Coding CPT Codes CPT Codes: ANESTH SURG UPPER ABDOMEN - 83466 ([id number]) P3 - PATIENT W/SEVERE SYS DISEASE, QK - AC/DC REWINDER 2-4 CNCRNT ANES PROC, QX - TOBACCO HANGER SVC W/ MD MED DIRECTION Additional Codes: Summary - Emergency: TOBACCO HANGER ([id number])
[2024-12-08] MEDS: ONDANSETRON 2 MG/ML inj 4 MG IVP (12:55)
[2024-12-08] MEDS: fentaNYL 100 MCG/2 ML inj 50 MCG IVP (13:01)
--- NOTE | 2024-12-08 13:22 | SUR.PHASEI ---
patient met discharge criteria per anesthesia
[2024-12-08] MEDS: MORPHINE 4 MG/ML INJ IVP ×2 (14:59→21:38)
[2024-12-08] MEDS: PANTOPRAZOLE SODIUM 40 MG INJ IVP (18:11)
--- NOTE | 2024-12-08 18:25 | PC.NURSE ---
Pt alert and oriented. Pt has an NG in place at 55. Pt has a medina in place. Pt went to surgery around 1115 and returned to the floor around 1315. Pt slept most of shift post surgery. Pt had complaints of pain ranging from 0-5; see EMAR for intervention. Pt?s dressing is dry and intact. Pt is still NPO. Pt?s family at bedside.?
[2024-12-08] MEDS: SODIUM CHLORIDE 0.9 % (FLUSH) 10 ML SYRINGE 5 ML IVF (21:38)
[2024-12-09] VITALS (14 sets, daily range): BP systolic 119–158; BP diastolic 68–97; PULSE 78–87; RESP 16–18; TEMP 36.7–37.7; O2SAT 91–95
[2024-12-09 06:20] LABS: HCO3 VBG 22 mmol/L (21-28); Ionized Calcium* 1.19 mmol/L (1.11-1.30); PCO2 VBG 48 mmHG (40-50); PO2 VBG 36.8 mmHG (25-47); pH VBG 7.272 (7.32-7.43)
[2024-12-09] MEDS: 0.9 % SODIUM CHLORIDE 1000 ml 1,000 ML 125 ML IV ×2 (06:21→18:05)
[2024-12-09 06:25] LABS: Eosinophils Absolute Auto 0.01 K/uL (0.00-0.50); Eosinophils Percent Auto 0.1 % (0.0-7.0); Hemoglobin* 11.5 gm/dL (12.0-16.0); Immature Granulocytes Abs Auto 0.09 K/uL (0.00-0.30); Immature Granulocytes Pct Auto 1.1 %; Lymphocytes Percent Auto 7.2 % (20-44); Mean Corpuscular HGB Conc 33 gm/dL (32-36); Mean Corpuscular Hemoglobin 32 pg (26-34); Mean Corpuscular Volume 98 fL (80-100); Monocytes Percent Auto 5.4 % (0.0-11.0); Neutrophils Percent Auto 86.2 % (42.0-72.0); Platelet Count* 235 K/uL (140-440); RDW Coefficient of Variation % 13.1 % (11.5-15.5); Red Blood Count 3.56 m/uL (4.00-5.20); White Blood Count* 8.21 K/uL (4.50-11.00)
[2024-12-09 06:27] LABS: Slide Review Reflex No
--- NOTE | 2024-12-09 06:38 | PC.NURSE ---
End of shift note [id number]: Pt A&Ox4 at start of shift though does have intermittent forgetfulness/confusion noted. Pt confused to correct time later on in the shift and needed reorientation. Beltran catheter in place for accurate output. Pt continues to refuse SCDs despite education and encouragement. Dressing to abdominal incision noted to be C/D/I. Abdominal pain controlled with PRN IV pain medication, ice, rest and repositioning. No c/o CP or N/V noted. NG in place to LIS with pt continuing on NPO diet. She frequently requests ice chips and needs reminders that surgeon has advised minimal ice chips only at this time. Pt noted to have temp of 99.8 last evening though has since decreased. Pt has been on oxygen 1-2 LPM since surgery in order to maintain sats greater than 90%. ECHO scheduled for today. Pt remains on IV NS per order. Tele in place with NSR with prolonged QT noted which is not a new finding. IS education provided with return demonstration completed. Bed alarm on for safety and call light within reach. ?
[2024-12-09 07:23] LABS: Chloride* 114 mmol/L (96-114); Sodium* 143 mmol/L (135-149)
[2024-12-09 07:24] LABS: Potassium* 3.9 mmol/L (3.6-5.1)
[2024-12-09 07:26] LABS: Creatinine* 1.1 mg/dL (0.5-1.5); Est. Creatinine Clearance* 33.18; Estimated Glomerular Filt Rate 50 ml/min
[2024-12-09 07:27] LABS: Anion Gap 8 mEq/L (7-15); Blood Urea Nitrogen* 49 mg/dL (7-30); Carbon Dioxide* 21 mmol/L (20-32); Glucose* 81 mg/dL (60-115); Phosphorus* 3.3 mg/dL (2.5-4.5)
[2024-12-09 07:28] LABS: Magnesium* 2.9 mg/dL (1.5-2.6)
[2024-12-09 07:45] LABS: C Reactive Protein* 23.1 mg/dL (0.5-1.0)
[2024-12-09] MEDS: PERFLUTREN LIPID MICROSPHERES 2 ML VIAL IVP (09:24)
--- NOTE | 2024-12-09 09:25 | PM.IMPN1 ---
Progress Note: A&P Assessment and plan (1) Small bowel obstruction: Problem details: - Transition point in left lower quadrant. No prior abdominal or pelvic surgeries. - no relief with gastrograffin; s/p Sx. - Post-op Day 1: NG tube output has decreased, but had over 3 L yesterday. Not yet passing gas. Dr Campbell recommends continuing NG tube to low intermittent suction today. Okay for 1 cup of ice chips every 8 hours for comfort. Encourage ambulation with goal of ambulating the halls 6 times today. Status: Acute (2) Bacteremia due to Escherichia coli: Problem details: 1 bottle Bl Cx positive for Ecoli (pulled Dec 07) has rec'd meropenem; currently on ceftriaxone hemodynamically stable, no fevers f/u blood culture pulled 12/08 -> no growth for 24 hrs Status: Acute (3) Acute kidney injury: Problem details: -prerenal; poor intake, resolved - baseline creatinine of 1.0. Creatinine at admission 3.3, resolved - 12/08: 1.5 - DC foleys cath, I&O: NL UOP. Status: Resolved (4) Heart murmur: Problem details: - holosystolic precordial murmur radiating to neck and left axilla. Can hear murmur all the way down into the epigastrium. - echocardiogram 12/09 : LV and RV with normal systolic function, ejection fraction of 65-70%. Moderate aortic stenosis with no regurg, peak velocity 3.8 m/s. Mean gradient is 29 mm Hg, was not able to measure LVOT diameter. In addition patient had mild to moderate tricuspid valve regurgitation. - patient will need to follow up her valve disease as an outpatient, PCP to decide if the histotechnologist is needed for follow-up. Status: Acute (5) Aortic stenosis: Problem details: as above Status: Acute (6) Multifocal pneumonia: Problem details: - no prodromal symptoms. Seemingly occurring after several episodes of nausea and vomiting. Highly suspicious for aspiration. - single dose of meropenem given in the emergency department, followed by 1 gram ceftriaxone 12/07 - abx prior to surgery per Dr. To; likely to continue rocephin post op Status: Acute (7) SIRS (systemic inflammatory response syndrome): Problem details: - low blood pressure, elevated heart rate, elevated lactate - IV fluids, monitor lactate - 12/08 resolved Status: Resolved (8) Cholelithiasis: Problem details: - suspect this is an incidental finding. Monitor closely. Status: Acute Time Spent With Patient Total time spent: Today I spent 50 minutes seeing the patient, reviewing Expanse and EPIC notes/diagnostics, discussing the care plan with our care time that includes social work, PT/OT, pharmacy, RT, intermediate and documenting my impressions and plan in the medical record. Subjective Date Seen: 12/09/24 Interval history: No overnight events. Patient was seen and examined at bedside she states that she feels better s/p exploratory laparotomy with evidence of a single adhesion, which was lysed yesterday. No small-bowel resection needed. Still w/ NG tube. Not passing gas yet. DC foleys cath, I&O: NL UOP. Exam Narrative: Exam Narrative: Physical exam GENERAL: Comfortable, no acute distress. HEAD AND NECK: Atraumatic, normocephalic CARDIOVASCULAR: RRR. Normal S1, S2. No murmurs. RESPIRATORY: Clear to auscultation B/L. Good air entry B/L. No wheezes or rhonchi. GASTROINTESTINAL: Not distended, no guarding, mildly tender to palpation around the incision area. Clean dressing. NEUROLOGY: Alert, awake, oriented X 3. Normal speech. PSYCH: Normal mood, normal affect. Const: Vital Signs, click to edit/add: Vital Signs - 24 hr 12/08/24 10:44 12/08/24 12:37 12/08/24 12:40 Temperature 98.7 F 99.7 F H 99.7 F H Pulse Rate 89 91 Pulse Rate [Pulse Oximeter] 87 Respiratory Rate 18 18 19 Blood Pressure 116/66 108/67 Blood Pressure [Ri ght Arm] 112/72 Pulse Oximetry 92 96 96 Oxygen Delivery Me thod Room Air Room Air Room Air Oxygen Flow Rate 12/08/24 12:45 12/08/24 12:50 12/08/24 12:55 Temperature 99.7 F H 99.7 F H 99.7 F H Pulse Rate 93 90 92 Pulse Rate [Pulse Oximeter] Respiratory Rate 19 19 21 Blood Pressure 105/70 112/69 106/68 Blood Pressure [Ri ght Arm] Pulse Oximetry 97 98 96 Oxygen Delivery Me thod Room Air Room Air Room Air Oxygen Flow Rate 12/08/24 13:00 12/08/24 13:05 12/08/24 13:10 Temperature 99.7 F H 99.7 F H 100.5 F H Pulse Rate 89 89 88 Pulse Rate [Pulse Oximeter] Respiratory Rate 14 13 15 Blood Pressure 114/72 98/67 103/63 Blood Pressure [Ri ght Arm] Pulse Oximetry 97 94 95 Oxygen Delivery Me thod Room Air Room Air Room Air Oxygen Flow Rate 12/08/24 13:18 12/08/24 13:30 12/08/24 13:35 Temperature 97.6 F 98.6 F Pulse Rate 91 90 Pulse Rate [Pulse Oximeter] Respiratory Rate 16 16 Blood Pressure 105/74 104/68 Blood Pressure [Ri ght Arm] Pulse Oximetry 91 88 91 Oxygen Delivery Me thod Room Air Room Air Nasal Cannula Oxygen Flow Rate 1 12/08/24 13:45 12/08/24 14:00 12/08/24 14:15 Temperature 97.3 F L 97.5 F L 98.5 F Pulse Rate 91 93 92 Pulse Rate [Pulse Oximeter] Respiratory Rate 14 16 14 Blood Pressure 105/65 105/65 102/68 Blood Pressure [Ri ght Arm] Pulse Oximetry 88 91 91 Oxygen Delivery Me thod Nasal Cannula Nasal Cannula Nasal Cannula Oxygen Flow Rate 2 2 2 12/08/24 15:00 12/08/24 15:00 12/08/24 15:00 Temperature 97.3 F L 97.1 F L Pulse Rate 99 Pulse Rate [Pulse Oximeter] 97 Respiratory Rate 14 14 16 Blood Pressure 115/71 Blood Pressure [Ri ght Arm] 115/71 Pulse Oximetry 91 91 93 Oxygen Delivery Me thod Nasal Cannula Nasal Cannula Nasal Cannula Oxygen Flow Rate 2 2 2 12/08/24 15:17 12/08/24 15:31 12/08/24 16:30 Temperature 97.5 F L 99.0 F Pulse Rate 95 99 97 Pulse Rate [Pulse Oximeter] Respiratory Rate 16 14 Blood Pressure 112/69 112/69 Blood Pressure [Ri ght Arm] Pulse Oximetry 91 91 Oxygen Delivery Me thod Nasal Cannula Nasal Cannula Oxygen Flow Rate 2 2 12/08/24 17:30 12/08/24 18:32 12/08/24 19:30 Temperature 99.1 F 97.5 F L 99.6 F Pulse Rate 96 90 Pulse Rate [Pulse Oximeter] 87 Respiratory Rate 16 18 18 Blood Pressure 115/69 114/75 Blood Pressure [Or ght Arm] 109/73 Pulse Oximetry 92 91 92 Oxygen Delivery Me thod Nasal Cannula Nasal Cannula Nasal Cannula Oxygen Flow Rate 2 2 2 12/08/24 19:30 12/08/24 22:34 12/08/24 22:38 Temperature 99.6 F Pulse Rate 87 88 Pulse Rate [Pulse Oximeter] Respiratory Rate 18 16 Blood Pressure 109/73 [facility] Pulse Oximetry 92 91 Oxygen Delivery Me thod Nasal Cannula Nasal Cannula Oxygen Flow Rate 2 2 12/08/24 23:00 12/08/24 23:00 12/09/24 03:11 Temperature 99.8 F H 99.1 F Pulse Rate Pulse Rate [Pulse Oximeter] 85 85 86 Respiratory Rate 16 16 18 Blood Pressure Blood Pressure [facility]] 103/64 119/68 Pulse Oximetry 91 91 Oxygen Delivery Me thod Nasal Cannula Nasal Cannula Oxygen Flow Rate 2 2 12/09/24 07:50 Temperature 98.4 F Pulse Rate Pulse Rate [Pulse Oximeter] 82 Respiratory Rate 18 Blood Pressure Blood Pressure [facility]] 145/91 H Pulse Oximetry 92 Oxygen Delivery Me thod Nasal Cannula Oxygen Flow Rate 1 Labs Labs: Laboratory Results - last 24 hr 12/09/24 05:53 WBC 8.21 RBC 3.56 L Hgb 11.5 L Hct 35.0 MCV 98 MCH 32 MCHC 33 RDW Coeff of Anderson 13.1 Plt Count 235 Neut % (Auto) 86.2 H Lymph % (Auto) 7.2 L [place] % (Auto) 5.4 Eos % (Auto) 0.1 Baso % (Auto) 0.0 Neut # (Auto) 7.10 H Lymph # (Auto) 0.60 L [place] # (Auto) 0.40 Eos # (Auto) 0.01 Baso # (Auto) 0.00 Abs Immat Gran (auto) 0.09 Imm/Tot Granulo (auto) 1.1 VBG pH 7.272 L VBG pCO2 48 VBG pO2 36.8 VBG HCO3 22 Sodium 143 Potassium 3.9 Chloride 114 Carbon Dioxide 21 Anion Gap 8 BUN 49 H Creatinine 1.1 Estimated Creat Clear 33.18 Estimated GFR 50 Glucose 81 Calcium 8.0 L Ionized Calcium Bon 1.19 Phosphorus 3.3 Magnesium 2.9 H C-Reactive Protein 23.1 H TSH 2.420 Imaging Abdominal x-ray: Attestation: I have reviewed the pertinent imaging results. Radiologist's impression: INDICATION: Small-bowel obstruction. Gastrografin challenge. COMPARISON: CT dated 12/07/2024 at 1241 hours. Interval abdominal radiographs dated 12/07/2024 at 1719 hours. TECHNIQUE: One view (2 images) FINDINGS: As discussed below: IMPRESSION: 1. In-situ nasogastric tube. 2. There is a paucity of bowel gas which limits interpretation. Review of the 12/07/2024 CT at 1241 hours is notable for diffuse dilatation the small bowel consistent with a distal high-grade mechanical small-bowel obstruction. Succus entericus is present throughout the dilated small bowel on the CT which accounts for the paucity of bowel gas. 3. No oral contrast is identified on this imaging modality (CT would be more sensitive). 4. Otherwise, no significant interval change. Dictated by Rafal Esparza MD @ 12/08/2024 7:26:04 AM (Electronically Signed)
--- NOTE | 2024-12-09 10:04 | P.GSPN_ITS ---
Subjective Subjective Date Seen: 12/09/24 Interval history: Patient is doing well this morning. Her abdomen does not feel as bloated as it did yesterday. She has not passed gas. Some tenderness over the incision. She has not gotten out of bed or walk the halls. Has been wanting ice chips to help with her throat discomfort. Denies any nausea. No appetite. Exam Narrative: Exam Narrative: General: Alert and oriented, no acute distress HEENT: NG tube in place bile tinged output Abdomen: Dressings in place clean/dry/intact. Abdomen is appropriately tender over incision sites with no guarding or rebound. Soft. Nondistended. : Beltran in place with light yellow output. Const: Vital Signs, click to edit/add: Vital Signs - 24 hr 12/08/24 10:44 12/08/24 12:37 12/08/24 12:40 Temperature 98.7 F 99.7 F H 99.7 F H Pulse Rate 89 91 Pulse Rate [Pulse Oximeter] 87 Respiratory Rate 18 18 19 Blood Pressure 116/66 108/67 Blood Pressure [Ri ght Arm] 112/72 Pulse Oximetry 92 96 96 [facility] Room Air Oxygen Flow Rate 12/08/24 12:45 12/08/24 12:50 12/08/24 12:55 Temperature 99.7 F H 99.7 F H 99.7 F H Pulse Rate 93 90 92 Pulse Rate [Pulse Oximeter] Respiratory Rate 19 19 21 Blood Pressure 105/70 112/69 106/68 Blood Pressure [Ri ght Arm] Pulse Oximetry 97 98 96 [facility] Air Room Air Oxygen Flow Rate 12/08/24 13:00 12/08/24 13:05 12/08/24 13:10 Temperature 99.7 F H 99.7 F H 100.5 F H Pulse Rate 89 89 88 Pulse Rate [Pulse Oximeter] Respiratory Rate 14 13 15 Blood Pressure 114/72 98/67 103/63 Blood Pressure [Ri ght Arm] Pulse Oximetry 97 94 95 [facility] Room Air Room Air Oxygen Flow Rate 12/08/24 13:18 12/08/24 13:30 12/08/24 13:35 Temperature 97.6 F 98.6 F Pulse Rate 91 90 Pulse Rate [Pulse Oximeter] Respiratory Rate 16 16 Blood Pressure 105/74 104/68 Blood Pressure [Ri ght Arm] Pulse Oximetry 91 88 91 Oxygen Delivery Me thod Room Air Room Air Nasal Cannula Oxygen Flow Rate 1 12/08/24 13:45 12/08/24 14:00 12/08/24 14:15 Temperature 97.3 F L 97.5 F L 98.5 F Pulse Rate 91 93 92 Pulse Rate [Pulse Oximeter] Respiratory Rate 14 16 14 Blood Pressure 105/65 105/65 102/68 Blood Pressure [Ri ght Arm] Pulse Oximetry 88 91 91 Oxygen Delivery Me thod Nasal Cannula Nasal Cannula Nasal Cannula Oxygen Flow Rate 2 2 2 12/08/24 15:00 12/08/24 15:00 12/08/24 15:00 Temperature 97.3 F L 97.1 F L Pulse Rate 99 Pulse Rate [Pulse Oximeter] 97 Respiratory Rate 14 14 16 Blood Pressure 115/71 Blood Pressure [Ri ght Arm] 115/71 Pulse Oximetry 91 91 93 Oxygen Delivery Me thod Nasal Cannula Nasal Cannula Nasal Cannula Oxygen Flow Rate 2 2 2 12/08/24 15:17 12/08/24 15:31 12/08/24 16:30 Temperature 97.5 F L 99.0 F Pulse Rate 95 99 97 Pulse Rate [Pulse Oximeter] Respiratory Rate 16 14 Blood Pressure 112/69 112/69 Blood Pressure [Ri ght Arm] Pulse Oximetry 91 91 Oxygen Delivery Me thod Nasal Cannula Nasal Cannula Oxygen Flow Rate 2 2 12/08/24 17:30 12/08/24 18:32 12/08/24 19:30 Temperature 99.1 F 97.5 F L 99.6 F Pulse Rate 96 90 Pulse Rate [Pulse Oximeter] 87 Respiratory Rate 16 18 18 Blood Pressure 115/69 114/75 Blood Pressure [Ri ght Arm] 109/73 Pulse Oximetry 92 91 92 Oxygen Delivery Me thod Nasal Cannula Nasal Cannula Nasal Cannula Oxygen Flow Rate 2 2 2 12/08/24 19:30 12/08/24 22:34 12/08/24 22:38 Temperature 99.6 F Pulse Rate 87 88 Pulse Rate [Pulse Oximeter] Respiratory Rate 18 16 Blood Pressure 109/73 Blood Pressure [Ri ght Arm] Pulse Oximetry 92 91 Oxygen Delivery Me thod Nasal Cannula Nasal Cannula Oxygen Flow Rate 2 2 12/08/24 23:00 12/08/24 23:00 12/09/24 03:11 Temperature 99.8 F H 99.1 F Pulse Rate Pulse Rate [Pulse Oximeter] 85 85 86 Respiratory Rate 16 16 18 Blood Pressure Blood Pressure [Ri ght Arm] 103/64 119/68 Pulse Oximetry 91 91 Oxygen Delivery Me thod Nasal Cannula Nasal Cannula Oxygen Flow Rate 2 2 12/09/24 07:50 Temperature 98.4 F Pulse Rate Pulse Rate [Pulse Oximeter] 82 Respiratory Rate 18 Blood Pressure Blood Pressure [Ri ght Arm] 145/91 H Pulse Oximetry 92 Oxygen Delivery Me thod Nasal Cannula Oxygen Flow Rate 1 Labs/Imaging Labs Labs: No leukocytosis. CRP is elevated at 23.1. Imaging Imaging: No new imaging. Progress Note:A&P Assessment and plan (1) Small bowel obstruction: Status: Acute Assessment and Plan: 79-year-old female with no prior intra-abdominal surgical history presented to the ED with small-bowel obstruction of unknown etiology. She was taken to the operating room for an exploratory laparotomy with evidence of a single adhesion, which was lysed. No small-bowel resection needed. VSS and pain as expected for postop day 1. NG tube output has decreased, but had over 3 L yesterday. Not yet passing gas. Recommend continuing NG tube to low intermittent suction today. Okay for 1 cup of ice chips every 8 hours for comfort. Recommend Beltran be removed. Encourage ambulation with goal of ambulating the halls 6 times today.
[2024-12-09] MEDS: cefTRIAXone 2 GM in 0.9 % SODIUM CHLORIDE Mini-bag 100 ML IVPB (11:31)
[2024-12-09] MEDS: PANTOPRAZOLE SODIUM 40 MG INJ IVP (17:15)
--- NOTE | 2024-12-09 19:21 | PC.NURSE ---
End of Shift: Patient pleasant and cooperative, A&O. VSS, afebrile. SpO2 maintained above 90% on 1L NC. Patient denies pain this shift. Dressing to abdomen C/D/I. NG at 55cm, 250 out of NG this shift. 1A with walker and gait belt. NPO.
[2024-12-10] VITALS (9 sets, daily range): BP systolic 134–161; BP diastolic 76–106; PULSE 80–85; RESP 16–18; TEMP 36.8–37.5; O2SAT 90–95
[2024-12-10] MEDS: 0.9 % SODIUM CHLORIDE 1000 ml 1,000 ML 125 ML IV (02:06)
--- NOTE | 2024-12-10 06:14 | PC.NURSE ---
End of shift note [id number]: Pt A&Ox4 with intermittent forgetfulness noted, needing repeated reminders for things like the surgeon only wanting her to have 1 cup of ice chips Q8H as she will frequently request ice chips. Pt NPO at this time other than ice chips. NG remains in place to LIS. Dressing to abdomen C/D/I. Pt has been afebrile. She is on RA at this time. Pt transferring/ambulating with assist of 1 using FWW and gait belt. Pt continent of bladder. No BM post surgery and pt reported she is not yet passing gas when asked. Pt remains on IV NS per order. Staff encouraging ambulation. Pt refusing SCDs and TEDs this shift despite education and encouragement. Tele in place with NSR. Bed alarm on, call light within reach. ?
[2024-12-10 06:42] LABS: Basophils Percent Auto 0.1 % (0.0-3.0); Eosinophils Percent Auto 0.3 % (0.0-7.0); Hematocrit 36.4 % (33.0-51.0); Hemoglobin* 11.9 gm/dL (12.0-16.0); Immature Granulocytes Pct Auto 2.9 %; Lymphocytes Percent Auto 6.2 % (20-44); Mean Corpuscular HGB Conc 33 gm/dL (32-36); Mean Corpuscular Hemoglobin 32 pg (26-34); Mean Corpuscular Volume 98 fL (80-100); Monocytes Percent Auto 5.6 % (0.0-11.0); Neutrophils Percent Auto 84.9 % (42.0-72.0); Platelet Count* 248 K/uL (140-440); RDW Coefficient of Variation % 13.2 % (11.5-15.5); White Blood Count* 11.01 K/uL (4.50-11.00)
[2024-12-10 06:55] LABS: Slide Review Reflex No
[2024-12-10 07:06] LABS: Chloride* 115 mmol/L (96-114); Potassium* 3.4 mmol/L (3.6-5.1); Sodium* 147 mmol/L (135-149)
[2024-12-10 07:09] LABS: Anion Gap 13 mEq/L (7-15); Blood Urea Nitrogen* 32 mg/dL (7-30); Carbon Dioxide* 19 mmol/L (20-32); Creatinine* 0.9 mg/dL (0.5-1.5); Estimated Glomerular Filt Rate 64 ml/min
[2024-12-10 07:10] LABS: Calcium* 8.6 mg/dL (8.4-10.6); Glucose* 75 mg/dL (60-115)
[2024-12-10 07:35] LABS: C Reactive Protein* 20.4 mg/dL (0.5-1.0)
[2024-12-10] MEDS: POTASSIUM CHLORIDE 10 MEQ/100 ML PIGGYBACK 100 MEQ IVPB ×3 (08:31→10:54)
--- NOTE | 2024-12-10 08:47 | PM.GSPN ---
Subjective Subjective Date Seen: 12/10/24 Interval history: Patient is doing well this morning. She denies any abdominal pain. She does not feel bloated. She was able to walk to the bathroom, has not yet walked the halls. Is going to be working with therapies this morning. She does feel hungry. She has not yet passed gas. The NG tube is really bothersome to her. Exam Narrative: Exam Narrative: General: Alert and oriented, no acute distress. Sitting comfortably in bed Respiratory: Equal breath rise bilaterally, maintained on room air CV: Well perfused Abdomen: Dressing removed, abdomen is soft and nontender to palpation. No guarding or rebound. Midline incision with Steri-Strips in place clean/dry/intact HEENT: Minimal amount of clear fluid in NG tube. Const: Vital Signs, click to edit/add: Vital Signs - 24 hr 12/09/24 09:00 12/09/24 11:42 12/09/24 11:51 Temperature 99.8 F H Pulse Rate 87 Pulse Rate [Pulse Oximeter] 80 Respiratory Rate 18 18 Blood Pressure [Ri ght Arm] 124/81 Pulse Oximetry 93 92 Oxygen Delivery Me thod Nasal Cannula Nasal Cannula Oxygen Flow Rate 1 1 12/09/24 16:00 12/09/24 16:11 12/09/24 16:11 Temperature 98.1 F Pulse Rate Pulse Rate [Pulse Oximeter] 80 80 Respiratory Rate 18 18 18 Blood Pressure [Ri ght Arm] 142/92 H Pulse Oximetry 91 91 Oxygen Delivery Me thod Nasal Cannula Nasal Cannula Oxygen Flow Rate 1 1 12/09/24 17:22 12/09/24 19:27 12/09/24 22:35 Temperature 99.3 F Pulse Rate 83 79 Pulse Rate [Pulse Oximeter] 78 Respiratory Rate 18 Blood Pressure [Ri ght Arm] 141/97 H Pulse Oximetry 95 Oxygen Delivery Me thod Nasal Cannula Oxygen Flow Rate 1 12/09/24 22:57 12/09/24 22:58 12/09/24 23:00 Temperature 99.0 F Pulse Rate Pulse Rate [Pulse Oximeter] 78 78 Respiratory Rate 16 16 16 Blood Pressure [Ri ght Arm] 158/90 H Pulse Oximetry 95 95 Oxygen Delivery Me thod Room Air Room Air Oxygen Flow Rate 12/10/24 03:00 Temperature 99.1 F Pulse Rate Pulse Rate [Pulse Oximeter] 82 Respiratory Rate 16 Blood Pressure [Ri ght Arm] 134/76 Pulse Oximetry 95 Oxygen Delivery Me thod Room Air Oxygen Flow Rate Labs/Imaging Labs Labs: No leukocytosis, CRP is trending down (20). BMP with mild elevation in chloride and BUN. Imaging Imaging: No new imaging. Progress Note:A&P Assessment and plan (1) Small bowel obstruction: Status: Acute Assessment and Plan: 79-year-old female with no prior intra-abdominal surgical history presented to the ED with small-bowel obstruction of unknown etiology. She was taken to the operating room for an exploratory laparotomy with evidence of a single adhesion, which was lysed. No small-bowel resection needed. Postop day 2. Vital signs stable overnight. Patient is now off of oxygen. NG tube output has significantly decreased in the last 24 hours and become more clear in quality. It was removed at bedside this morning. Will not give diet until patient is passing gas. Okay for sips of clear liquids. Patient was encouraged to ambulate the hallways today with therapies and independently if able.
--- NOTE | 2024-12-10 10:56 | P.IMPN_ITS ---
Progress Note: A&P Assessment and plan (1) Small bowel obstruction: Problem details: - Transition point in left lower quadrant. No prior abdominal or pelvic surgeries. - no relief with gastrograffin; s/p Sx. - Post-op Day 1: NG tube output has decreased, but had over 3 L yesterday. Not yet passing gas. Dr Campbell recommends continuing NG tube to low intermittent suction today. Okay for 1 cup of ice chips every 8 hours for comfort. Encourage ambulation with goal of ambulating the halls 6 times today. - postop day 2: Pt feels better and she is hungry. NG tube with less fluids out and was removed by the surgeon. Not passing gas yet. Okay with the surgeon to slowly advance her diet. Status: Acute (2) Bacteremia due to Escherichia coli: Problem details: -One bottle Bl Cx positive for Ecoli (pulled Dec 07) -Continue ceftriaxone, sensitive to ceftriaxone per culture. -hemodynamically stable, no fevers -f/u blood culture pulled 12/08 -> no growth for 48 hrs Status: Acute (3) Acute kidney injury: Problem details: -prerenal; poor intake, resolved - baseline creatinine of 1.0. Creatinine at admission 3.3, resolved - 12/08: 1.5 - DC foleys cath, I&O: NL UOP. Status: Resolved (4) Heart murmur: Problem details: - holosystolic precordial murmur radiating to neck and left axilla. Can hear murmur all the way down into the epigastrium. - echocardiogram 12/09 : LV and RV with normal systolic function, ejection fraction of 65-70%. Moderate aortic stenosis with no regurg, peak velocity 3.8 m/s. Mean gradient is 29 mm Hg, was not able to measure LVOT diameter. In addition patient had mild to moderate tricuspid valve regurgitation. - patient will need to follow up her valve disease as an outpatient, PCP to decide if the audit manager is needed for follow-up. Status: Acute (5) Aortic stenosis: Problem details: as above Status: Acute (6) Multifocal pneumonia: Problem details: - no prodromal symptoms. Seemingly occurring after several episodes of nausea and vomiting. Highly suspicious for aspiration. - single dose of meropenem given in the emergency department, followed by 1 gram ceftriaxone 12/07 - abx prior to surgery per Dr. To; likely to continue rocephin post op Status: Acute (7) SIRS (systemic inflammatory response syndrome): Problem details: - low blood pressure, elevated heart rate, elevated lactate - IV fluids, monitor lactate - 12/08 resolved Status: Resolved (8) Cholelithiasis: Problem details: - suspect this is an incidental finding. Monitor closely. Status: Acute Time Spent With Patient Total time spent: Today I spent 50 minutes seeing the patient, reviewing Expanse and EPIC notes/diagnostics, discussing the care plan with our care time that includes social work, PT/OT, pharmacy, RT, [facility] and documenting my impressions and plan in the medical record. Subjective Date Seen: 12/10/24 Interval history: No overnight events. Patient was seen and examined at bedside she states that she feels better today and that she feels hungry. NG tube with less fluids out and was removed by the surgeon. Not passing gas yet. Okay with the surgeon to slowly advance her diet. Exam Narrative: Exam Narrative: Physical exam GENERAL: Comfortable, no acute distress. HEAD AND NECK: Atraumatic, normocephalic CARDIOVASCULAR: RRR. Normal S1, S2. No murmurs. RESPIRATORY: Clear to auscultation B/L. Good air entry B/L. No wheezes or rhonchi. GASTROINTESTINAL: Not distended, not tender to palpation. No guarding. Clean midline incision with Steri-Strips in place. NEUROLOGY: Alert, awake, oriented X 3. Normal speech. No focal weakness. PSYCH: Normal mood, normal affect. Const: Vital Signs, click to edit/add: Vital Signs - 24 hr 12/09/24 11:42 12/09/24 11:51 12/09/24 16:00 Temperature 99.8 F H 98.1 F Pulse Rate 87 Pulse Rate [Pulse Oximeter] 80 80 Respiratory Rate 18 18 Blood Pressure [Ri ght Arm] 124/81 142/92 H Pulse Oximetry 92 91 Oxygen Delivery Me thod Nasal Cannula Nasal Cannula Oxygen Flow Rate 1 1 12/09/24 16:11 12/09/24 16:11 12/09/24 17:22 Temperature Pulse Rate 83 Pulse Rate [Pulse Oximeter] 80 Respiratory Rate 18 18 Blood Pressure [Ri ght Arm] Pulse Oximetry 91 Oxygen Delivery Me thod Nasal Cannula Oxygen Flow Rate 1 12/09/24 19:27 12/09/24 22:35 12/09/24 22:57 Temperature 99.3 F Pulse Rate 79 Pulse Rate [Pulse Oximeter] 78 Respiratory Rate 18 16 Blood Pressure [Ri ght Arm] 141/97 H Pulse Oximetry 95 95 Oxygen Delivery Me thod Nasal Cannula Room Air Oxygen Flow Rate 1 12/09/24 22:58 12/09/24 23:00 12/10/24 03:00 Temperature 99.0 F 99.1 F Pulse Rate Pulse Rate [Pulse Oximeter] 78 78 82 Respiratory Rate 16 16 16 Blood Pressure [Ri ght Arm] 158/90 H 134/76 Pulse Oximetry 95 95 Oxygen Delivery Me thod Room Air Room Air Oxygen Flow Rate 12/10/24 07:00 12/10/24 10:32 Temperature 99.1 F Pulse Rate Pulse Rate [Pulse Oximeter] 80 Respiratory Rate 18 18 Blood Pressure [Ri ght Arm] 138/83 Pulse Oximetry 93 93 Oxygen Delivery Me thod Room Air Room Air Oxygen Flow Rate Labs Labs: Laboratory Results - last 24 hr 12/10/24 06:10 WBC 11.01 H RBC 3.70 L Hgb 11.9 L Hct 36.4 MCV 98 MCH 32 MCHC 33 RDW Coeff of [place] 13.2 Plt Count 248 Neut % (Auto) 84.9 H Lymph % (Auto) 6.2 L [place] % (Auto) 5.6 Eos % (Auto) 0.3 Baso % (Auto) 0.1 Neut # (Auto) 9.30 H Lymph # (Auto) 0.70 L [place] # (Auto) 0.60 Eos # (Auto) 0.00 Baso # (Auto) 0.00 Abs Immat Gran (auto) 0.30 Imm/Tot Granulo (auto) 2.9 Sodium 147 Potassium 3.4 L Chloride 115 H Carbon Dioxide 19 L Anion Gap 13 BUN 32 H Creatinine 0.9 Estimated Creat Clear 36.50 Estimated GFR 64 Glucose 75 Calcium 8.6 C-Reactive Protein 20.4 H
[2024-12-10] MEDS: cefTRIAXone 2 GM in 0.9 % SODIUM CHLORIDE Mini-bag 100 ML IVPB (11:52)
--- NOTE | 2024-12-10 14:14 | PC.NURSE ---
observation assistant had to remind patient to slow down. When walking the walker is to far in front of her, reminded her to slow down.
--- NOTE | 2024-12-10 15:39 | PC.NURSE ---
End of Shift: Patient pleasant and cooperative, A&O. VSS, afebrile. SpO2 maintained above 90% on RA. 1A with walker and gait belt. Patient denies pain this shift. Tolerating clear liquids, denies nausea.
--- NOTE | 2024-12-10 17:32 | PC.NURSE ---
charge nurse Leonor notified pt ambulating in [place] with staff and became weak then slid to floor. pt had GB on and was using walker. vss after event 156/88 p=97 r=18 s=97. pt denies pain. ROM to bilat l/e intact. pt assisted to bed in semi bryant position.
[2024-12-10] MEDS: PANTOPRAZOLE SODIUM 40 MG INJ IVP (18:23)
[2024-12-10] MEDS: SODIUM CHLORIDE 0.9 % (FLUSH) 10 ML SYRINGE 5 ML IVF (22:26)
--- NOTE | 2024-12-10 23:08 | PC.NURSE ---
Pt alert, oriented and vitally stable. Pain rated 0/10 throughout shift. Pt states having a small bm and passing gas, bowel sounds active. Pt uses walker and gait belt, 1a. Pt ambulating in hallway with LUCIO, lowered to the floor, cogeneration operator and incident report completed by Heaven Falcon RN. Pt in bed, alarm on, appears to be resting.
[2024-12-11] VITALS (7 sets, daily range): BP systolic 121–154; BP diastolic 71–117; PULSE 85–98; RESP 16–20; TEMP 36.8–37.6; O2SAT 91–95
--- NOTE | 2024-12-11 06:24 | PC.NURSE ---
Addendum entered by Lisa Guajardo RN 12/11/24 07:18: Abdominal incision site remains CDI Original Note: End of shift [id number]: Pt A&OX4, cooperative, and pleasant. Pt reported no pain present. Pt had active bowel sounds with 1 episode of passing stool. Formed and brown. Pt uses walker and gait belt, 1a. Pt appears resting with call light within reach.
[2024-12-11 06:30] LABS: Basophils Percent Auto 0.1 % (0.0-3.0); Eosinophils Percent Auto 0.4 % (0.0-7.0); Hematocrit 34.1 % (33.0-51.0); Hemoglobin* 11.7 gm/dL (12.0-16.0); Immature Granulocytes Pct Auto 3.8 %; Lymphocytes Percent Auto 7.9 % (20-44); Mean Corpuscular HGB Conc 34 gm/dL (32-36); Mean Corpuscular Hemoglobin 32 pg (26-34); Mean Corpuscular Volume 94 fL (80-100); Monocytes Percent Auto 6.8 % (0.0-11.0); Platelet Count* 240 K/uL (140-440); Red Blood Count 3.62 m/uL (4.00-5.20); White Blood Count* 15.76 K/uL (4.50-11.00)
[2024-12-11 06:34] LABS: Slide Review Reflex No
[2024-12-11 06:54] LABS: Chloride* 109 mmol/L (96-114); Sodium* 139 mmol/L (135-149)
[2024-12-11 06:55] LABS: Potassium* 3.2 mmol/L (3.6-5.1)
[2024-12-11 06:57] LABS: Creatinine* 0.7 mg/dL (0.5-1.5); Estimated Glomerular Filt Rate 87 ml/min
[2024-12-11 06:58] LABS: Anion Gap 9 mEq/L (7-15); Blood Urea Nitrogen* 19 mg/dL (7-30); Calcium* 8.4 mg/dL (8.4-10.6); Carbon Dioxide* 21 mmol/L (20-32); Glucose* 105 mg/dL (60-115)
[2024-12-11 07:18] LABS: C Reactive Protein* 12.5 mg/dL (0.5-1.0)
[2024-12-11] MEDS: POTASSIUM CHLORIDE 10 MEQ CAPSULE ER 60 MEQ PO (07:44)
[2024-12-11] MEDS: ONDANSETRON 2 MG/ML inj 4 MG IVP (07:51)
--- NOTE | 2024-12-11 08:22 | CRLHL7_ITS ---
For Patients: As a result of the Century Cures Act, medical imaging exams and procedure reports are released immediately into your electronic medical record. You may view this report before your referring provider. If you have questions, please contact your health care provider. Indication: Pneumonia Technique: Single view examination dated December 11, 2024. Comparison: None Findings: As described below Impression: 1. Heart size normal. 2. Normal-appearing left lung and left pleural space. 3. Patchy airspace opacity in the right midlung and right base, probably inflammatory. Right pleural space is normal. 4. Demineralized osseous structures and degenerative change. Dictated by Rolando Guardado MD @ 12/11/2024 9:10:17 AM (Electronically Signed)
[2024-12-11] MEDS: SODIUM CHLORIDE 0.9 % (FLUSH) 10 ML SYRINGE 5 ML IVF ×2 (10:44→22:13)
[2024-12-11] MEDS: cefTRIAXone 2 GM in 0.9 % SODIUM CHLORIDE Mini-bag 100 ML IVPB (10:44)
--- NOTE | 2024-12-11 12:49 | P.IMPN_ITS ---
Progress Note: A&P Assessment and plan (1) Small bowel obstruction: Problem details: - Transition point in left lower quadrant. No prior abdominal or pelvic surgeries. - no relief with gastrograffin; s/p Sx. - Post-op Day 1: NG tube output has decreased, but had over 3 L yesterday. Not yet passing gas. Dr Campbell recommends continuing NG tube to low intermittent suction today. Okay for 1 cup of ice chips every 8 hours for comfort. Encourage ambulation with goal of ambulating the halls 6 times today. - postop day 2: Pt feels better and she is hungry. NG tube with less fluids out and was removed by the surgeon. Not passing gas yet. Okay with the surgeon to slowly advance her diet. - Post op 3: low grade fever. CXR done. Mild redness at her sx wound upon examination. Pt is on ceftriaxone. Status: Acute (2) Bacteremia due to Escherichia coli: Problem details: -One bottle Bl Cx positive for Ecoli (pulled Dec 07) -Continue ceftriaxone, sensitive to ceftriaxone per culture. -hemodynamically stable, no fevers -f/u blood culture pulled 12/08 -> no growth for 72 hrs Status: Acute (3) Acute kidney injury: Problem details: -prerenal; poor intake, resolved - baseline creatinine of 1.0. Creatinine at admission 3.3, resolved - 12/08: 1.5 - DC foleys cath, I&O: NL UOP. Status: Resolved (4) Heart murmur: Problem details: - holosystolic precordial murmur radiating to neck and left axilla. Can hear murmur all the way down into the epigastrium. - echocardiogram 12/09 : LV and RV with normal systolic function, ejection fraction of 65-70%. Moderate aortic stenosis with no regurg, peak velocity 3.8 m/s. Mean gradient is 29 mm Hg, was not able to measure LVOT diameter. In addition patient had mild to moderate tricuspid valve regurgitation. - patient will need to follow up her valve disease as an outpatient, PCP to decide if the sales representative trainee is needed for follow-up. Status: Acute (5) Aortic stenosis: Problem details: as above Status: Acute (6) Multifocal pneumonia: Problem details: - no prodromal symptoms. Seemingly occurring after several episodes of nausea and vomiting. Highly suspicious for aspiration. - single dose of meropenem given in the emergency department, followed by 1 gram ceftriaxone 12/07 - abx prior to surgery per Dr. To; likely to continue rocephin post op Status: Acute (7) SIRS (systemic inflammatory response syndrome): Problem details: - low blood pressure, elevated heart rate, elevated lactate - IV fluids, monitor lactate - 12/08 resolved Status: Resolved (8) Cholelithiasis: Problem details: - suspect this is an incidental finding. Monitor closely. Status: Acute Time Spent With Patient Total time spent: Today I spent 50 minutes seeing the patient, reviewing Expanse and EPIC notes/diagnostics, discussing the care plan with our care time that includes social work, PT/OT, pharmacy, RT, residential and documenting my impressions and plan in the medical record. Subjective Date Seen: 12/11/24 Interval history: Patient was seen and examined at bedside. off NGT since yesterday. Pt tolerated full fluids w/ some nausea, no vomitting. she had a BM. Okay to advance her diet. Pt got fatigued upon PT walk today. Had a low grade fever. Exam Narrative: Exam Narrative: Physical exam GENERAL: Comfortable, no acute distress. HEAD AND NECK: Atraumatic, normocephalic CARDIOVASCULAR: RRR. Normal S1, S2. No murmurs. RESPIRATORY: Clear to auscultation B/L. Good air entry B/L. GASTROINTESTINAL: Not distended, not tender to palpation. No guarding. NEUROLOGY: Alert, awake. Normal speech. No focal weakness. PSYCH: Normal mood, normal affect. Const: Vital Signs, click to edit/add: Vital Signs - 24 hr 12/10/24 13:17 12/10/24 15:12/10/24 15:00 Temperature 98.6 F Pulse Rate 81 Pulse Rate [Pulse Oximeter] 85 Respiratory Rate 16 16 Blood Pressure [Ri ght Arm] 153/90 H Pulse Oximetry 93 93 Oxygen Delivery Me thod Room Air Room Air 12/10/24 15:00 12/10/24 15:00 12/10/24 19:00 Temperature 98.2 F Pulse Rate 81 Pulse Rate [Pulse Oximeter] 85 80 Respiratory Rate 16 18 Blood Pressure [Ri ght Arm] 140/82 H Pulse Oximetry 90 Oxygen Delivery Me thod Room Air 12/10/24 23:00 12/10/24 23:00 12/10/24 23:00 Temperature 98.5 F Pulse Rate 82 Pulse Rate [Pulse Oximeter] 85 Respiratory Rate 16 16 Blood Pressure [Ri ght Arm] 161/106 H Pulse Oximetry 94 94 Oxygen Delivery Me thod Room Air Room Air 12/11/24 03:02 12/11/24 07:00 12/11/24 07:00 Temperature 99.3 F Pulse Rate Pulse Rate [Pulse Oximeter] 94 89 Respiratory Rate 18 20 20 Blood Pressure [Ri ght Arm] 146/103 H Pulse Oximetry 93 94 Oxygen Delivery Me thod Room Air Room Air 12/11/24 08:19 12/11/24 10:21 12/11/24 11:09 Temperature 99.7 F H 99.3 F Pulse Rate 85 Pulse Rate [Pulse Oximeter] 89 98 Respiratory Rate 20 18 Blood Pressure [Ri ght Arm] 154/117 H 121/76 Pulse Oximetry 94 94 Oxygen Delivery Oh thod Room Air Room Air Labs Labs: Laboratory Results - last 24 hr 12/11/24 06:06 WBC 15.76 H RBC 3.62 L Hgb 11.7 L Hct 34.1 MCV 94 MCH 32 MCHC 34 RDW Coeff of Anderson 13.0 Plt Count 240 Neut % (Auto) 81.0 H Lymph % (Auto) 7.9 L Shannon % (Auto) 6.8 Eos % (Auto) 0.4 Baso % (Auto) 0.1 Neut # (Auto) 12.80 H Lymph # (Auto) 1.20 Shannon # (Auto) 1.10 H Eos # (Auto) 0.10 Baso # (Auto) 0.00 Abs Immat Gran (auto) 0.60 H Imm/Tot Granulo (auto) 3.8 Sodium 139 Potassium 3.2 L Chloride 109 Carbon Dioxide 21 Anion Gap 9 BUN 19 Creatinine 0.7 Estimated Creat Clear 36.50 Estimated GFR 87 Glucose 105 Calcium 8.4 C-Reactive Protein 12.5 H Imaging Chest x-ray: Attestation: I have reviewed the pertinent imaging results. Radiologist's impression: Technique: Single view examination dated December 11, 2024. Comparison: None Findings: As described below Impression: 1. Heart size normal. 2. Normal-appearing left lung and left pleural space. 3. Patchy airspace opacity in the right midlung and right base, probably inflammatory. Right pleural space is normal. 4. Demineralized osseous structures and degenerative change. Dictated by Rolando Guardado MD @ 12/11/2024 9:10:17 AM (Electronically Signed)
--- NOTE | 2024-12-11 13:44 | P.GSPN_ITS ---
Subjective Subjective Date Seen: 12/11/24 Interval history: Patient feels a little more run done today. She was able to walk the hallways with PT and OT yesterday. While she was in the [place] she had to be lowered to the ground secondary to fatigue. She has been tolerating full liquids. She does not like the taste of the food she is offered but is feeling hungry for more. Some mild nausea with potassium supplement, no emesis. Continues to pass gas and had a bowel movement today. Some new redness on the inferior aspect of her incision was noted. This was outlined. Exam Narrative: Exam Narrative: General: Alert and oriented, nontoxic Respiratory: Equal breath rise bilaterally, maintained on room air CV: Well perfused Abdomen: Soft, appropriately tender over incision sites. No guarding or rebound. No peritoneal signs. Steri-Strips in place. Inferior left lateral aspect of incision with some ecchymoses and erythema, this was outlined. Const: Vital Signs, click to edit/add: Vital Signs - 24 hr 12/10/24 15:00 12/10/24 15:00 12/10/24 15:00 Temperature 98.6 F Pulse Rate Pulse Rate [Pulse Oximeter] 85 85 Respiratory Rate 16 16 16 Blood Pressure [Ri ght Arm] 153/90 H Pulse Oximetry 93 93 Oxygen Delivery Nv thod Room Air Room Air 12/10/24 15:00 12/10/24 19:00 12/10/24 23:00 Temperature 98.2 F Pulse Rate 81 82 Pulse Rate [Pulse Oximeter] 80 Respiratory Rate 18 Blood Pressure [Ri ght Arm] 140/82 H Pulse Oximetry 90 Oxygen Delivery Nv thod Room Air 12/10/24 23:00 12/10/24 23:00 12/11/24 03:02 Temperature 98.5 F 99.3 F Pulse Rate Pulse Rate [Pulse Oximeter] 85 94 Respiratory Rate 16 16 18 Blood Pressure [Ri ght Arm] 161/106 H 146/103 H Pulse Oximetry 94 94 93 Oxygen Delivery Nv thod Room Air Room Air Room Air 12/11/24 07:00 12/11/24 07:00 12/11/24 08:19 Temperature 99.7 F H Pulse Rate Pulse Rate [Pulse Oximeter] 89 89 Respiratory Rate 20 20 20 Blood Pressure [Ri ght Arm] 154/117 H Pulse Oximetry 94 94 [facility] 12/11/24 10:21 12/11/24 11:09 Temperature 99.3 F Pulse Rate 85 Pulse Rate [Pulse Oximeter] 98 Respiratory Rate 18 Blood Pressure [Ri ght Arm] 121/76 Pulse Oximetry 94 Oxygen Delivery Me thod Room Air Labs/Imaging Labs Labs: Leukocytosis (15). CRP is trending down (20--12) Imaging Imaging: Chest x-ray:Impression: 1. Heart size normal. 2. Normal-appearing left lung and left pleural space. 3. Patchy airspace opacity in the right midlung and right base, probably inflammatory. Right pleural space is normal. 4. Demineralized osseous structures and degenerative change. Progress Note:A&P Assessment and plan (1) Small bowel obstruction: Status: Acute Assessment and Plan: 79-year-old female with no prior intra-abdominal surgical history presented to the ED with small-bowel obstruction of unknown etiology. She was taken to the operating room for an exploratory laparotomy with evidence of a single adhesion, which was lysed. No small-bowel resection needed. Postop day 3. Low-grade fever this morning (99.7). Slight increase in her leukocytosis (12--15). Her CRP is trending down. A chest x-ray was obtained to rule out atelectasis versus pneumonia. No concern at this time. Patient does continue on ceftriaxone for E coli bacteremia. Blood cultures from 12/08 with no growth. On examination there is a new area of redness on the inferior aspect of the incision, could be an early developing surgical site infection. The area was outlined this afternoon, will continue to watch. NG tube was removed yesterday. She has been tolerating full liquids today and is having bowel movements. Will continue to advance to regular as tolerated. Patient continues to work with therapies. Anticipate discharge likely in next 1-2 days.
--- NOTE | 2024-12-11 15:34 | PC.NURSE ---
End of Shift: Patient pleasant and cooperative, A&O. VSS, low grade fever this shift, T-max 99.7 this shift. This morning after administration of medications, patient reported feeling nauseous, managed with PRN medication, see MAR. Patient denies pain this shift. 1A with walker and gait belt. Tolerating clear liquids. ?
[2024-12-11] MEDS: PANTOPRAZOLE SODIUM 40 MG INJ IVP (16:59)
[2024-12-11] MEDS: ENOXAPARIN 40 MG/0.4 ML INJ SUBCUT (22:13)
--- NOTE | 2024-12-11 23:29 | PC.NURSE ---
Pt alert, oriented and vitally stable, though has periods of confusion. Pt up via 1a, tolerates well. Bowel sounds active in all 4 quadrants. Bruising noted at base of incision, not exceeding day shifts outline. Pt states no pain or discomfort. Tolerating Full liquids. Pt in bed, appears to be resting, call light within reach.
[2024-12-12] VITALS (15 sets, daily range): BP systolic 97–158; BP diastolic 68–100; PULSE 89–113; RESP 16–20; TEMP 36.8–37.5; O2SAT 92–95
--- NOTE | 2024-12-12 06:29 | PC.NURSE ---
End of shift [id number]: pt A&O pleasant and cooperative. VSS. Reports ?discomfort? with initial movement otherwise denies any other pain. Bruising around incision site noted. BS active. Pt reports passing flatus. tolerating liquid diet. denies n/v. Up w/ A1 walker and gb to the bathroom. Using call light appropriately.
[2024-12-12 06:54] LABS: Basophils Percent Auto 0.1 % (0.0-3.0); Eosinophils Percent Auto 0.7 % (0.0-7.0); Hematocrit 32.3 % (33.0-51.0); Hemoglobin* 10.9 gm/dL (12.0-16.0); Immature Granulocytes Pct Auto 2.9 %; Lymphocytes Percent Auto 9.2 % (20-44); Mean Corpuscular HGB Conc 34 gm/dL (32-36); Mean Corpuscular Hemoglobin 32 pg (26-34); Mean Corpuscular Volume 94 fL (80-100); Monocytes Percent Auto 7.2 % (0.0-11.0); Neutrophils Percent Auto 79.9 % (42.0-72.0); Platelet Count* 240 K/uL (140-440); RDW Coefficient of Variation % 12.9 % (11.5-15.5); Red Blood Count 3.42 m/uL (4.00-5.20); White Blood Count* 14.69 K/uL (4.50-11.00)
[2024-12-12 07:06] LABS: Chloride* 106 mmol/L (96-114); Potassium* 3.5 mmol/L (3.6-5.1); Sodium* 137 mmol/L (135-149)
[2024-12-12 07:09] LABS: Creatinine* 0.6 mg/dL (0.5-1.5); Estimated Glomerular Filt Rate 90 ml/min
[2024-12-12 07:10] LABS: Anion Gap 4 mEq/L (7-15); Blood Urea Nitrogen* 14 mg/dL (7-30); Calcium* 8.2 mg/dL (8.4-10.6); Carbon Dioxide* 27 mmol/L (20-32); Glucose* 102 mg/dL (60-115)
[2024-12-12 07:20] LABS: Slide Review Reflex No
[2024-12-12] MEDS: POTASSIUM CHLORIDE 10 MEQ CAPSULE ER 20 MEQ PO (09:07)
[2024-12-12] MEDS: SODIUM CHLORIDE 0.9 % (FLUSH) 10 ML SYRINGE 5 ML IVF ×2 (09:08→21:11)
--- NOTE | 2024-12-12 11:13 | P.GSPN_ITS ---
Subjective Subjective Date Seen: 12/12/24 Interval history: Patient is doing well this morning. She has been tolerating her diet without difficulty had some eggs and toast this morning. No nausea or vomiting. Continues to pass gas. Had a small bowel movement this morning ?but mostly l iquid?. Denies any abdominal pain. Exam Narrative: Exam Narrative: General: Alert and oriented, no acute distress Abdomen: Soft, nondistended and nontender. Steri-Strips in place clean/dry/intact. Outlined area on the inferior aspect of the incision appears to be resolving ecchymoses, no concern for infection. Const: Vital Signs, click to edit/add: Vital Signs - 24 hr 12/11/24 15:00 12/11/24 15:00 12/11/24 15:00 Temperature 98.7 F Pulse Rate 91 Pulse Rate [Pulse Oximeter] 85 Respiratory Rate 18 18 Blood Pressure [Ri ght Arm] 153/92 H Pulse Oximetry 95 95 Oxygen Delivery Me thod Room Air Room Air Oxygen Flow Rate 12/11/24 15:00 12/11/24 19:00 12/12/24 00:10 Temperature 98.2 F 99.5 F Pulse Rate Pulse Rate [Pulse Oximeter] 85 86 100 Respiratory Rate 18 16 18 Blood Pressure [Ri ght Arm] 134/71 158/94 H Pulse Oximetry 91 94 Oxygen Delivery Me thod Room Air Room Air Oxygen Flow Rate 12/12/24 00:14 12/12/24 00:18 12/12/24 04:43 Temperature 99.1 F Pulse Rate 94 Pulse Rate [Pulse Oximeter] 100 Respiratory Rate 18 18 Blood Pressure [Ri ght Arm] 153/97 H Pulse Oximetry 94 92 Oxygen Delivery Me thod Room Air Room Air Oxygen Flow Rate 12/12/24 07:00 12/12/24 07:40 12/12/24 07:42 Temperature 99.2 F Pulse Rate 96 Pulse Rate [Pulse Oximeter] 92 Respiratory Rate 18 18 Blood Pressure [Ri ght Arm] 155/100 H Pulse Oximetry 93 93 Oxygen Delivery Me thod Room Air Room Air Oxygen Flow Rate 0 Labs/Imaging Labs Labs: Leukocytosis trending down (14), CRP trending down Progress Note:A&P Assessment and plan (1) Small bowel obstruction: Status: Acute Assessment and Plan: 79-year-old female with no prior intra-abdominal surgical history presented to the ED with small-bowel obstruction of unknown etiology. She was taken to the operating room for an exploratory laparotomy with evidence of a single adhesion, which was lysed. No small-bowel resection needed. Postop day 4. Afebrile overnight, vital signs stable. Leukocytosis is now trending down. CRP continues to trend towards normal. She is tolerating a regular diet and had return of bowel function. She continues to work with therapies to determine if she needs post hospital SNF. Doing well from a surgical perspective.
[2024-12-12] MEDS: cefTRIAXone 2 GM in 0.9 % SODIUM CHLORIDE Mini-bag 100 ML IVPB (12:06)
--- NOTE | 2024-12-12 13:32 | PM.IMPN1 ---
Progress Note: A&P Assessment and plan (1) Small bowel obstruction: Problem details: - Transition point in left lower quadrant. No prior abdominal or pelvic surgeries. - no relief with gastrograffin; s/p Sx. - Post-op Day 1: NG tube output has decreased, but had over 3 L yesterday. Not yet passing gas. Dr Campbell recommends continuing NG tube to low intermittent suction today. Okay for 1 cup of ice chips every 8 hours for comfort. Encourage ambulation with goal of ambulating the halls 6 times today. - postop day 2: Pt feels better and she is hungry. NG tube with less fluids out and was removed by the surgeon. Not passing gas yet. Okay with the surgeon to slowly advance her diet. - Post op 3: low grade fever. CXR done. Mild redness at her sx wound upon examination. Pt is on ceftriaxone. - postop day 4: tolerating a regular diet and had BM. Doing well from a surgical perspective. OT recommends tcu/SNF. Status: Acute (2) Bacteremia due to Escherichia coli: Problem details: -One bottle Bl Cx positive for Ecoli (pulled Dec 07) -Continue ceftriaxone, sensitive to ceftriaxone per culture. -hemodynamically stable, no fevers -f/u blood culture pulled 12/08 -> no growth for 72 hrs Status: Acute (3) Acute kidney injury: Problem details: -prerenal; poor intake, resolved - baseline creatinine of 1.0. Creatinine at admission 3.3, resolved - 12/08: 1.5 - DC foleys cath, I&O: NL UOP. Status: Resolved (4) Heart murmur: Problem details: - holosystolic precordial murmur radiating to neck and left axilla. Can hear murmur all the way down into the epigastrium. - echocardiogram 12/09 : LV and RV with normal systolic function, ejection fraction of 65-70%. Moderate aortic stenosis with no regurg, peak velocity 3.8 m/s. Mean gradient is 29 mm Hg, was not able to measure LVOT diameter. In addition patient had mild to moderate tricuspid valve regurgitation. - patient will need to follow up her valve disease as an outpatient, PCP to decide if the director of music is needed for follow-up. Status: Acute (5) Aortic stenosis: Problem details: as above Status: Acute (6) Multifocal pneumonia: Problem details: - no prodromal symptoms. Seemingly occurring after several episodes of nausea and vomiting. Highly suspicious for aspiration. - single dose of meropenem given in the emergency department, followed by 1 gram ceftriaxone 12/07 - abx prior to surgery per Dr. To; likely to continue rocephin post op Status: Acute (7) SIRS (systemic inflammatory response syndrome): Problem details: - low blood pressure, elevated heart rate, elevated lactate - IV fluids, monitor lactate - 12/08 resolved Status: Resolved (8) Cholelithiasis: Problem details: - suspect this is an incidental finding. Monitor closely. Status: Acute Plan OT recs: TCU/SNF after DC. Time Spent With Patient Total time spent: Today I spent 50 minutes seeing the patient, reviewing Expanse and EPIC notes/diagnostics, discussing the care plan with our care time that includes social work, PT/OT, pharmacy, RT, residential and documenting my impressions and plan in the medical record. Subjective Date Seen: 12/12/24 Interval history: Patient was seen and examined at bedside. No nausea, no vomitting. she had a small BM this am. OT recs: TCU/SNF after DC. Exam Narrative: Exam Narrative: Physical exam GENERAL: Comfortable, no acute distress. HEAD AND NECK: Atraumatic, normocephalic CARDIOVASCULAR: RRR. Normal S1, S2. No murmurs. RESPIRATORY: Clear to auscultation B/L. Good air entry B/L. GASTROINTESTINAL: Not distended, not tender to palpation. No guarding NEUROLOGY: Alert, awake, oriented X 3. Normal speech. Const: Vital Signs, click to edit/add: Vital Signs - 24 hr 12/11/24 15:00 12/11/24 15:00 12/11/24 15:00 Temperature 98.7 F Pulse Rate 91 Pulse Rate [Pulse Oximeter] 85 Respiratory Rate 18 18 Blood Pressure [Ri ght Arm] 153/92 H Pulse Oximetry 95 95 Oxygen Delivery Me thod Room Air Room Air Oxygen Flow Rate 12/11/24 15:00 12/11/24 19:00 12/12/24 00:10 Temperature 98.2 F 99.5 F Pulse Rate Pulse Rate [Pulse Oximeter] 85 86 100 Respiratory Rate 18 16 18 Blood Pressure [Ri ght Arm] 134/71 158/94 H Pulse Oximetry 91 94 Oxygen Delivery Me thod Room Air Room Air Oxygen Flow Rate 12/12/24 00:14 12/12/24 00:18 12/12/24 04:43 Temperature 99.1 F Pulse Rate 94 Pulse Rate [Pulse Oximeter] 100 Respiratory Rate 18 18 Blood Pressure [Ri ght Arm] 153/97 H Pulse Oximetry 94 92 Oxygen Delivery Me thod Room Air Room Air Oxygen Flow Rate 12/12/24 07:00 12/12/24 07:40 12/12/24 07:42 Temperature 99.2 F Pulse Rate 96 Pulse Rate [Pulse Oximeter] 92 Respiratory Rate 18 18 Blood Pressure [Ri ght Arm] 155/100 H Pulse Oximetry 93 93 Oxygen Delivery Me thod Room Air Room Air Oxygen Flow Rate 0 12/12/24 12:04 Temperature 98.6 F Pulse Rate Pulse Rate [Pulse Oximeter] 113 H Respiratory Rate 18 Blood Pressure [Ri ght Arm] 102/70 Pulse Oximetry 94 Oxygen Delivery Me thod Room Air Oxygen Flow Rate 0 Labs Labs: Laboratory Results - last 24 hr 12/12/24 06:37 WBC 14.69 H RBC 3.42 L Hgb 10.9 L Hct 32.3 L MCV 94 MCH 32 MCHC 34 RDW Coeff of Anderson 12.9 Plt Count 240 Neut % (Auto) 79.9 H Lymph % (Auto) 9.2 L [place] % (Auto) 7.2 Eos % (Auto) 0.7 Baso % (Auto) 0.1 Neut # (Auto) 11.70 H Lymph # (Auto) 1.40 [place] # (Auto) 1.10 H Eos # (Auto) 0.10 Baso # (Auto) 0.00 Abs Immat Gran (auto) 0.40 H Imm/Tot Granulo (auto) 2.9 Sodium 137 Potassium 3.5 L Chloride 106 Carbon Dioxide 27 Anion Gap 4 L BUN 14 Creatinine 0.6 Estimated Creat Clear 36.50 Estimated GFR 90 Glucose 102 Calcium 8.2 L C-Reactive Protein 9.0 H
--- NOTE | 2024-12-12 13:39 | PC.SOCIAL ---
Addendum entered by LOLA Goncalves 12/12/24 16:48: Discharge planning: Received calls back from [facility] and [facility] both able to accept pt for short term rehab admit tomorrow. Met with pt and family in room regarding d/c plan. Pt and family are pleased with acceptance to [facility] for rehab. pt and family are requesting non-emergency ambulance be provided at discharge and are aware and agree to pay privately for this transport. Estimate provided to pt and family was $120 for this transport. PAS completed #[id number]. pantry goods worker to send discharge orders to [facility] prior to discharge tomorrow. Original Note: Discharge planning: Met with pt and multiple family members in room regarding d/c plan. Pt and family members are requesting placement in a half-way facility for short term rehab at discharge. Provided pt and family with list of nursing homes serving this area with Department of Health Ratings and information on how to find these ratings. Family is requesting placement in facilities in this orders: [facility], [facility], [place] and [facility]. Family states they will only accept placement in a five star rated facility. Contacted facilities with the listed results: 1. [facility] - Secure emailed information to admissions and awaiting decision on admit. 2. [facility] - no beds expected this week. 3. [facility] - no beds available. 4. [facility] and [facility] - Secure emailed information to admissions and awaiting decision on admit. 5. [facility] - Secure emailed information to Delio with [facility] admissions and awaiting decision on admit. pantry goods worker to follow up as needed.
[2024-12-12] MEDS: ACETAMINOPHEN 325 MG TABLET 650 MG PO ×2 (14:48→21:10)
[2024-12-12] MEDS: PANTOPRAZOLE SODIUM 40 MG INJ IVP (16:30)
[2024-12-12] MEDS: ENOXAPARIN 40 MG/0.4 ML INJ SUBCUT (21:10)
[2024-12-13 02:55] VITALS: BP 140/95; PULSE 97; RESP 18; TEMP 37.1; O2SAT 95
--- NOTE | 2024-12-13 05:26 | PC.NURSE ---
[id number]: Patient pleasant and cooperative. A&Ox3 with forgetfulness and repetitive questions. Afebrile. Patient reports passing gas. Tolerating a regular diet. Denies N/V. Incision to abdomen w/steri strips MELY. Denies pain.
[2024-12-13 07:00] VITALS: PULSE 95
[2024-12-13 07:30] VITALS: RESP 16; O2SAT 95
[2024-12-13 07:31] VITALS: BP 147/95; PULSE 96; RESP 16; TEMP 37.2; O2SAT 95
--- NOTE | 2024-12-13 09:43 | P.DS_ITS ---
DS: Providers Provider Date Seen: 12/13/24 Date of admission: 12/07/24 16:53 Primary care physician: John Chahal MD Consults: 12/07/24 16:53 Consult to Occupational Therapy [CONS] Routine Comment: Reason(s) for OT Consult:: Evaluate and Treat Any Restrictions?:: No Restrictions Consult to Physical Therapy [CONS] Routine Comment: Reason(s) for PT Consult:: Evaluate and Treat Any Restrictions?:: No Restrictions Consult to Engineering Faculty [CONS] Routine Comment: Reason for Consult:: Discharge Planning Needs Attending Physician on discharge: Darleen Massey MD DS: Diagnosis Discharge Diagnosis (1) Small bowel obstruction: Status: Resolved Problem details: - Transition point in left lower quadrant. No prior abdominal or pelvic surgeries. - no relief with gastrograffin; s/p Sx. - Post-op Day 1: NG tube output has decreased, but had over 3 L yesterday. Not yet passing gas. Dr Campbell recommends continuing NG tube to low intermittent suction today. Okay for 1 cup of ice chips every 8 hours for comfort. Encourage ambulation with goal of ambulating the halls 6 times today. - postop day 2: Pt feels better and she is hungry. NG tube with less fluids out and was removed by the surgeon. Not passing gas yet. Okay with the surgeon to slowly advance her diet. - Post op 3: low grade fever. CXR done. Mild redness at her sx wound upon examination. Pt is on ceftriaxone. - postop day 4: tolerating a regular diet and had BM. Doing well from a surgical perspective. OT recommends tcu/SNF. (2) Bacteremia due to Escherichia coli: Status: Acute Problem details: -One bottle Bl Cx positive for Ecoli (pulled Dec 07) -Continue ceftriaxone, sensitive to ceftriaxone per culture. -hemodynamically stable, no fevers -f/u blood culture pulled 12/08 -> no growth for 72 hrs (3) Acute kidney injury: Status: Resolved Problem details: -prerenal; poor intake, resolved - baseline creatinine of 1.0. Creatinine at admission 3.3, resolved - 12/08: 1.5 - DC foleys cath, I&O: NL UOP. (4) Heart murmur: Status: Acute Problem details: - holosystolic precordial murmur radiating to neck and left axilla. Can hear murmur all the way down into the epigastrium. - echocardiogram 12/09 : LV and RV with normal systolic function, ejection fraction of 65-70%. Moderate aortic stenosis with no regurg, peak velocity 3.8 m/s. Mean gradient is 29 mm Hg, was not able to measure LVOT diameter. In addition patient had mild to moderate tricuspid valve regurgitation. - patient will need to follow up her valve disease as an outpatient, PCP to decide if the steam station supervisor is needed for follow-up. (5) Aortic stenosis: Status: Acute Problem details: as above (6) Multifocal pneumonia: Status: Acute Problem details: - no prodromal symptoms. Seemingly occurring after several episodes of nausea and vomiting. Highly suspicious for aspiration. - single dose of meropenem given in the emergency department, followed by 1 gram ceftriaxone 12/07 - abx prior to surgery per Dr. To; likely to continue rocephin post op (7) SIRS (systemic inflammatory response syndrome): Status: Resolved Problem details: - low blood pressure, elevated heart rate, elevated lactate - IV fluids, monitor lactate - 12/08 resolved (8) Cholelithiasis: Status: Acute Problem details: - suspect this is an incidental finding. Monitor closely. DS: Summary Hospital Course Hospital Course: Pt presented w/ SBO, GAURAV and G -ve bacteremia. Gen Sx consulted and underwent lysis of the adhesions. IVF and IV Abx were administered. Pt's SBO and GAURAV resolved. Pt received 7 days of parenteral Abx to treat her G -ve bacteremia. Her 2nd Bl Cx was w/out growth for 5 days. Pt/OT eval the pt and she was found that she may benefit from rehab. Pt accepted at [facility]. Time Spent with Patient Time attestation: Total time spent providing and/or coordinating discharge services: 40 Exam Narrative: Exam Narrative: GENERAL: Comfortable, no acute distress. HEAD AND NECK: Atraumatic, normocephalic CARDIOVASCULAR: RRR. Normal S1, S2. No murmurs. RESPIRATORY: Clear to auscultation B/L. Good air entry B/L. GASTROINTESTINAL: Not distended, not tender to palpation. No guarding NEUROLOGY: Alert, awake, oriented X 3. Normal speech. Const: Vital Signs, click to edit/add: Vital Signs - 24 hr 12/12/24 12:04 12/12/24 15:00 12/12/24 15:15 Temperature 98.6 F 99.4 F Pulse Rate 107 H Pulse Rate [Pulse Oximeter] 113 H 102 H Respiratory Rate 18 16 Blood Pressure [Ri ght Arm] 102/70 109/79 Pulse Oximetry 94 95 Oxygen Delivery Me thod Room Air Room Air Oxygen Flow Rate 0 0 12/12/24 15:20 12/12/24 15:22 12/12/24 19:38 Temperature 98.3 F Pulse Rate Pulse Rate [Pulse Oximeter] 107 H 105 H Respiratory Rate 16 16 20 Blood Pressure [Ri ght Arm] 97/68 Pulse Oximetry 95 95 Oxygen Delivery Me thod Room Air Room Air Oxygen Flow Rate 0 12/12/24 21:26 12/12/24 23:00 12/12/24 23:00 Temperature Pulse Rate 89 Pulse Rate [Pulse Oximeter] 89 Respiratory Rate 20 16 Blood Pressure [Ri ght Arm] Pulse Oximetry 95 Oxygen Delivery Me thod Room Air Oxygen Flow Rate 12/13/24 02:55 12/13/24 07:30 12/13/24 07:31 Temperature 98.7 F 98.9 F Pulse Rate Pulse Rate [Pulse Oximeter] 97 96 Respiratory Rate 18 16 16 Blood Pressure [Ri ght Arm] 140/95 H 147/95 H Pulse Oximetry 95 95 95 Oxygen Delivery Me thod Room Air Room Air Room Air Oxygen Flow Rate 0 0 Discharge Plan Discharge Disposition: [facility] Date of Admission: 12/07/24 16:53 Attending Provider on Discharge: Darleen Massey Primary Care Provider: John Chahal Condition: Improved Discharge Medications: New hydrocortisone 1 % cream 1 applic topical BID PRNQty: 28.35 0RF Continued aspirin 81 mg tablet,chewable 81 mg PO DAILY ondansetron 8 mg tablet,disintegrating 8 mg PO TID PRN (Reason: nausea and vomiting) Qty: 20 0RF sennosides-docusate sodium [Senna-S] 8.6-50 mg tablet 2 tab-cap PO QHS Qty: 60 12RF multivitamin [Multiple Vitamins] Tablet 1 tab PO DAILY calcium carbonate [Calcium 600] 600 mg calcium (1,500 mg) tablet 600 mg PO DAILY zinc acetate 50 mg (zinc) capsule 50 mg PO DAILY polyethylene glycol 3350 [Miralax] 17 gram/dose powder 17 g PO DAILY PRN Discharge Orders: Discharge Order (Routine); Ordered 12/13/24 Ordered By: Darleen Massey Activity Level: Activity as Tolerated Discharge Diet: Low Fiber Follow Up Appointments: Jose Alberto To MD [Staff Physician] - (2 week post op follow up) John Chahal MD [Primary Care Provider] - Forms: [facility] Info Instructions Admit to: SNF Discharge Potential: Good Length of Stay: <30 days Can use facility standing orders?: Yes Code Status: Full Code TEDs: Bilateral Knee Rehab Potential: Good Therapy: Physical Therapy and Occupational Therapy Oxygen: No
[2024-12-13] MEDS: cefTRIAXone 2 GM in 0.9 % SODIUM CHLORIDE Mini-bag 100 ML IVPB (09:45)
[2024-12-13] MEDS: SODIUM CHLORIDE 0.9 % (FLUSH) 10 ML SYRINGE 5 ML IVF (09:45)
[2024-12-13 10:19] VITALS: BP 97/69; PULSE 109; RESP 18; TEMP 37.1; O2SAT 96
--- NOTE | 2024-12-13 10:26 | PM.GSPN ---
Subjective Subjective Date Seen: 12/13/24 Interval history: Patient is doing well this morning. She is currently working with therapies. Plan to go to [facility] today. She is tolerating regular diet and having bowel movements. They are still a little bit loose and bile tinged. Denies any abdominal pain. Incision is healing well. Exam Narrative: Exam Narrative: General: Alert and oriented, no acute distress Abdomen: Soft, nontender and nondistended. Incision healing well. Const: Vital Signs, click to edit/add: Vital Signs - 24 hr 12/12/24 12:04 12/12/24 15:00 12/12/24 15:15 Temperature 98.6 F 99.4 F Pulse Rate 107 H Pulse Rate [Pulse Oximeter] 113 H 102 H Respiratory Rate 18 16 Blood Pressure [Ri ght Arm] 102/70 109/79 Pulse Oximetry 94 95 Oxygen Delivery Me thod Room Air Room Air Oxygen Flow Rate 0 0 12/12/24 15:20 12/12/24 15:22 12/12/24 19:38 Temperature 98.3 F Pulse Rate Pulse Rate [Pulse Oximeter] 107 H 105 H Respiratory Rate 16 16 20 Blood Pressure [Ri ght Arm] 97/68 Pulse Oximetry 95 95 Oxygen Delivery Me thod Room Air Room Air Oxygen Flow Rate 0 12/12/24 21:26 12/12/24 23:00 12/12/24 23:00 Temperature Pulse Rate 89 Pulse Rate [Pulse Oximeter] 89 Respiratory Rate 20 16 Blood Pressure [Ri ght Arm] Pulse Oximetry 95 Oxygen Delivery Me thod Room Air Oxygen Flow Rate 12/13/24 02:55 12/13/24 07:30 12/13/24 07:31 Temperature 98.7 F 98.9 F Pulse Rate Pulse Rate [Pulse Oximeter] 97 96 Respiratory Rate 18 16 16 Blood Pressure [Ri ght Arm] 140/95 H 147/95 H Pulse Oximetry 95 95 95 Oxygen Delivery Me thod Room Air Room Air Room Air Oxygen Flow Rate 0 0 12/13/24 10:19 Temperature 98.8 F Pulse Rate Pulse Rate [Pulse Oximeter] 109 H Respiratory Rate 18 Blood Pressure [Ri ght Arm] 97/69 Pulse Oximetry 96 Oxygen Delivery Me thod Room Air Oxygen Flow Rate Progress Note:A&P Assessment and plan (1) Small bowel obstruction: Status: Acute Assessment and Plan: 79-year-old female with no prior intra-abdominal surgical history presented to the ED with small-bowel obstruction of unknown etiology. She was taken to the operating room for an exploratory laparotomy with evidence of a single adhesion, which was lysed. No small-bowel resection needed. Postop day 5. Vital signs stable. Tolerating a regular diet and has return of bowel function. Plan for discharge to rehab today. Will have the patient follow-up with Dr. To in 2 weeks.
--- NOTE | 2024-12-13 10:33 | PC.SOCIAL ---
Discharge plan: Met with pt who is pleased with planned discharge today to [facility] for rehab care. Pt states her family is aware of the plans and will either come to the hospital for discharge or meet her there. Provided pt with copy of the Important Message from Medicare and explained the appeal process. Pt is not interested in appealing and pleased with plan. Non Emergency EMS is scheduled to transport today. Family and pt are aware and agree to private pay for transport. Discharge orders were secure emailed to [facility] and expected arrival time has been conformed with the facility.
--- NOTE | 2024-12-13 12:32 | PC.NURSE ---
Pt alert and oriented. Pt up with assist of one with walker and gait belt. Pt?s steri strips intact. Pt is a regular diet and tolerating well. No complaints of N/V. Pt had no complaints of pain. Pt up to chair most of shift. Pt showered this morning. Pt's IV removed; catheter intact. Pt's VS WNL. Pt discharge to [facility]; EMS transported.
== END 2024-12-13 11:13 | DRG 335 ==
LOC: ED 15:39 → MEDSURG 16:03
PROVIDERS: Family Medicine; Surgery; Admitting Provider Internal Medicine; Emergency Provider Family Medicine; PCP Family Medicine; Visit Provider Internal Medicine
PROC: (CPT 49000; principal; 2024-12-08 11:00)
DX: K56.609 Unspecified intestinal obstruction, unspecified as to partial versus complete obstruction (principal); J18.9 Pneumonia, unspecified organism; R65.10 Systemic inflammatory response syndrome (SIRS) of non-infectious origin without acute organ dysfunction; N17.9 Acute kidney failure, unspecified; R78.81 Bacteremia; R18.8 Other ascites; K80.20 Calculus of gallbladder without cholecystitis without obstruction; R01.1 Cardiac murmur, unspecified; Z96.641 Presence of right artificial hip joint; B96.20 Unspecified Escherichia coli [E. coli] as the cause of diseases classified elsewhere; I35.0 Nonrheumatic aortic (valve) stenosis; R50.9 Fever, unspecified; K56.50 Intestinal adhesions [bands], unspecified as to partial versus complete obstruction; G89.18 Other acute postprocedural pain
CPT/HCPCS: 00790; 36415; 51701; 64488; 71045; 71250; 74018; 74019; 74176; 76705; 76942; 80048; 80061; 81001; 82330; 82803; 83605; 83690; 83735; 84100; 84443; 84484; 85025; 85379; 85610; 86140; 87040; 87086; 87631; 87800; 93005; 93306; 97110; 97116; 97162; 97165; 97530; 97535; 99100; 99140; 99284; 99291; A9270; J0330; J0665; J0666; J0696; J1650; J2185; J2270; J2405; J2470; J2704; J3010; J3480; J3490; J7030; J7120; Q9957

== ENCOUNTER 2024-12-13 11:10 | Outpatient (CLI) | payer MEDICARE, BC, SELFPAY | END 2024-12-13 11:11 | disposition home or self-care (01) | LOC: AMB 12-20 07:40 | PROVIDERS: PCP Family Medicine; Visit Provider Family Medicine | DX: K56.609 Unspecified intestinal obstruction, unspecified as to partial versus complete obstruction (principal); R78.81 Bacteremia | CPT/HCPCS: A0425; A0428 ==

== ENCOUNTER 2025-01-01 06:44 | Emergency (ER) | payer MEDICARE, BC, SELFPAY ==
--- OUTSIDE RECORDS SUMMARY | 2025-01-01 06:48 | XMS_ITS | Clinical Summary ---
Author Organization [employer] [facility] Address [address] [place] [id number] Care Team Providers Care Administrative Analyst Name Role Phone Pcp, No Primary Care Provider Unavailabl e Encounters Date Type Department Care Team Description 12/15/2024 Lab Requisition [facility] [phone] Madhavi Nunes NP 12/09/2024 9:00 AM [employer] SALES REPRESENTATIVE Ancillary Procedure [facility] [address] [place] [address] from Last 3 Months Immunizations Name Administration Dates Next Due Amb Influenza, Inactivated A IIV4 (Age 65+ Years) Preserv Free 08/28/2020 Influenza, Inactivated AIIV4 (Age 65+ Years) Preserv Free 07/24/2021 Social History Tobacco Use Types Packs/Day Years Used Date Smoking Tobacco: Never Assessed Comments Unknown Sex and Gender Information Value Date Recorded Sex Assigned at Not on file Legal Sex Female 7:12 AM [employer] SALES REPRESENTATIVE Gender Identity Not on file Sexual Orientation [...] 75+ series) 2018 COVID-19 vaccine series ( season) 2024 Influenza for age 65+ 07/10/2024 07/24/2021, 020 Procedures Procedure Name Priority Date/Time Associated Diagnosis Comments CBC WITH AUTO DIFFERENTIAL Routine 12/20/2024 8:25 AM [employer] SALES REPRESENTATIVE Anemia, unspecified Hyperkalemia BASIC METABOLIC PANEL Routine 12/20/2024 8:25 AM [employer] SALES REPRESENTATIVE Anemia, unspecified Hyperkalemia CBC WITH AUTO DIFFERENTIAL Routine 12/20/2024 8:25 AM [employer]IES SALES REPRESENTATIVE Anemia, unspecified Hyperkalemia ECHO TTE COMPLETE W CONTRAST Routine 12/09/2024 9:46 AM [employer]IES SALES REPRESENTATIVE Holosystolic murmur from Last 3 Months Results * (ABNORMAL) CBC WITH AUTO DIFFERENTIAL (12/20/2024 8:25 AM DA[employer] SUP[employer]IES SALES REPRESENTATIVE) WHITE BLOOD COUNT 8.7 4.5 - 11.0 thou/cu mm 12/20/2024 9:18 AM [facility] RED BLOOD COUNT 3.75(L) 4.00 - 5.20 mil/cu mm 12/20/2024 9:18 AM [facility] HEMOGLOBIN 11.7(L) 12.0 - 16.0 g/dL 12/20/2024 9:18 AM [facility] HEMATOCRIT 36.8 33.0 - 51.0 % 12/20/2024 9:18 AM [facility] MCV 98 80 - 100 fL 12/20/2024 9:18 AM [facility] MCH 31.2 26.0 - 34.0 pg 12/20/2024 9:18 AM [facility] MCHC 31.8(L) 32.0 - 36.0 g/dL 12/20/2024 9:18 AM [facility] RDW 13.5 11.5 - 15.5 % 12/20/2024 9:18 AM [facility] PLATELET COUNT 538(H) 140 - 440 thou/cu mm 12/20/2024 9:18 AM [facility] MPV 8.8 6.5 - 11.0 fL 12/20/2024 9:18 AM [facility] % NEUT 73.7 % 12/20/2024 9:18 AM [facility] % LYMPH 16.7 % 12/20/2024 9:18 AM [facility] % MONO 7.5 % 12/20/2024 9:18 AM [facility] % EOS 1.3 % 12/20/2024 9:18 AM [facility] % BASO 0.8 % 12/20/2024 9:18 AM [facility] ABSOLUTE NEUTROPHILS 6.4 1.7 - 7.0 thou/cu mm 12/20/2024 9:18 AM [facility] ABSOLUTE LYMPHOCYTES 1.5 0.9 - 2.9 thou/cu mm 12/20/2024 9:18 AM [facility] ABSOLUTE MONOCYTES 0.7 <0.9 thou/cu mm 12/20/2024 9:18 AM [facility] ABSOLUTE EOSINOPHILS 0.1 <0.5 thou/cu mm 12/20/2024 9:18 AM [facility] ABSOLUTE BASOPHILS 0.1 <0.3 thou/cu mm 12/20/2024 9:18 AM [facility] Blood BLOOD SPECIMEN / Unknown Venipuncture / Unknown 12/20/2024 8:25 AM [employer]IES SALES REPRESENTATIVE 12/20/2024 9:10 AM [facility] Madhavi Nunes NP HEMATOLOGY Final Resul t [facility] [address] [place] [address] * (ABNORMAL) BASIC METABOLIC PANEL (12/20/2024 8:25 AM [facility]) SODIUM 141 136 - 145 mmol/L 12/20/2024 9:37 AM [facility] POTASSIUM 4.1 3.5 - 5.1 mmol/L 12/20/2024 9:37 AM [facility] CHLORIDE 102 98 - 107 mmol/L 12/20/2024 9:37 AM [facility] CO2,TOTAL 27 22 - 29 mmol/L 12/20/2024 9:37 AM [facility] ANION GAP 12 5 - 18 12/20/2024 9:37 AM [facility] GLUCOSE 82 70 - 99 mg/dL 12/20/2024 9:37 AM [facility] CALCIUM 9.9 8.8 - 10.4 mg/dL 12/20/2024 9:37 AM [facility] Comment: Reference ranges for this test were updated on 09/13/2024 to reflect our healthy population more accurately. Reference range changes are not retroactively applied to results, but previous results using the same methodology can be interpreted in the context of the new reference range. BUN 24(H) 8 - 23 mg/dL 12/20/2024 9:37 AM [facility] CREATININE 0.97(H) 0.50 - 0.90 mg/dL 12/20/2024 9:37 AM [facility] BUN/CREAT RATIO 25(H) 10 - 20 9:37 AM [facility] eGFR 59(L) >90 mL/min/1. 73m2 12/20/2024 9:37 AM [facility] Comment:As of 2022, eG FR is calculated by the CKD-EPI creatinine equation without race adjustment. eGFR can be influenced by muscle mass, exercise, and diet. The reported eGFR is an estimation only and is only applicable if the renal function is stable. Blood BLOOD SPECIMEN / Unknown Venipuncture / Unknown 12/20/2024 8:25 AM [employer] SALES REPRESENTATIVE 12/20/2024 9:10 AM [facility] us Madhavi Nunes NP CHEMISTRY Final Resul t [facility] [address] [place] [address] * ECHO TTE COMPLETE W CONTRAST (12/09/2024 9:46 AM [employer] SALES REPRESENTATIVE) AORTIC VALVE MEAN PG 29 mmHg PEAK TR VELOCITY 2.8 m/s LVEDD 3.6 cm EJECTION FRACTION 65 - 70% Anatomical Region Laterality Modality Ultrasound 12/09/2024 8:27 AM [employer] SALES REPRESENTATIVE Narrative 12/09/2024 10:39 AM [employer] SALES REPRESENTATIVE ECHOCARDIOGRAM KARLA BERNARD : 1945 79 years Study Date: 12/09/2024 8:27:19 AM Gender: F BP: 119/68 mmHg Height: 160.00 cm BSA: 1.58 m Weight: 56.00 kg Tech: TOAN Referring MD: ROB TOVAR Site: [facility] Reading Location: MOBILE- Patient Location: Inpatient. Procedure: 2D w/ Contrast, Color Doppler and Spectral Doppler. Indication for study: Holosystolic murmur Cardiac Rhythm: Regular.Study quality: Fair. Final Impressions: 1. Normal LV size, mildly increased wall thickness, normal global systolic function with an estimated EF of 65 - 70%. 2. Right ventricular cavity size is normal, global systolic RV function is normal. 3. The aortic valve is calcified, moderate stenosis (peak velocity 3.8 m/s, mean gradient 29 mmHg, LONG not able to be determined due to lack of subcostal views for measurement of LVOT diameter, dimensionless gradient 0.36) and no regurgitation. 4. The mitral valve is sclerotic, trace mitral regurgitation. 5. Mild-moderate tricuspid regurgitation. Comparison There are no prior studies on this patient for comparison purposes. Chamber Sizes and Function Normal left ventricular size, mildly increased wall thickness, normal global systolic function with an estimated EF of 65 - 70%. No resting regional wall motion abnormality visualized. Left atrial size is normal. Left atrial pressure is normal. Right ventricular cavity size is normal, global systolic RV function is normal. RV wall thickness is normal. The right atrium is mildly enlarged. Right atrial area is 17 cm . The pulmonary artery is of normal size and origin. The sinus of Valsalva is normal sized. The ascending aorta is normal for age/sex/bsa. Valves, RV Pressures and Diastolic Function The aortic valve is calcified, moderate stenosis and no regurgitation. The mitral valve is sclerotic, trace mitral regurgitation. Moderate mitral annular calcification is present. Indeterminate pattern of LV diastolic filling. The tricuspid valve is normal in structure. Tricuspid regurgitation is mild-moderate. The tricuspid regurgitant velocity is 2.8 m/s, the estimated right ventricular systolic pressure is 32 mmHg plus right atrial pressure. The pulmonic valve is normal. Trace pulmonary regurgitation. Masses, Effusion, Shunts There is no pericardial effusion. The inferior vena cava is not well visualized, respiratory size variation not well visualized. No left to right shunting was detected by limited color flow Doppler interrogation of the interatrial septum. MEASUREMENTS AND CALCULATIONS 2-D Measurements and LV Function: LVID (d) 3.6 cm LV FS% (2D) 47 % LVID (s) 1.9 cm HR 78 bpm IVS (d) 1.2 cm LA Vol index 46 ml/m2 LVPW (d) 1.1 cm RA area 17 cm Ao Sinus 3.1 cm Asc Ao 3.8 cm LA 3.6 cm Diastology: Mitral Tissue Doppler Pulmonary veins E Peak 0.9 m/s e', Septum 0.10 m/s Pulm s 77.2 cm/s A Peak 1.5 m/s e', Lateral 0.10 m/s Pulm d 41.3 cm/s E/A 0.6 E/e' Average 9.75 Pulm s/d ratio 1.87 DT 260 msec Aortic Valve: Vmax 3.8 m/s Max PG 57 mmHg VTI 0.69 m Mean PG 29 mmHg LVOT V max 1.1 m/s Dim Index 0.36 LVOT VTI 0.25 m Mitral Valve: MVA 2.9 cm MV P 1/2 75 msec MV Mean G 3 mmHg MV VTI 0.32 m Tricuspid Valve and estimated PA pressures: TR Vmax 2.8 m/s TR maxG 32 mmHg . This study was interpreted by an [facility] accredited facility. CC: [facility] (med records) [facility], Med/Surg - IP [facility]. Final Procedure Note Moustapha Henriquez MD - 12/09/2024 ECHOCARDIOGRAM KARLA BERNARD : 1945 79 years Study Date: 12/09/2024 8:27:19 AM Gender: F BP: 119/68 mmHg Height: 160.00 cm BSA: 1.58 m Weight: 56.00 kg Tech: TOAN Referring MD: ROB TOVAR Site: [facility] Reading Location: MOBILE- Patient Location: Inpatient. Procedure: 2D w/ Contrast, Color Doppler and Spectral Doppler. Indication for study: Holosystolic murmur Cardiac Rhythm: Regular.Study quality: Fair. Final Impressions: 1. Normal LV size, mildly increased wall thickness, normal globalsystolic function with an estimated EF of 65 - 70%. 2. Right ventricular cavity size is normal, global systolic RV functionis normal. 3. The aortic valve is calcified, moderate stenosis (peak velocity 3.8m/s, mean gradient 29 mmHg, LONG not able to be determined due to lack ofsubcostal views for measurement of LVOT diameter, dimensionless gradient0.36) and no regurgitation. 4. The mitral valve is sclerotic, trace mitral regurgitation. 5. Mild-moderate tricuspid regurgitation. Comparison There are no prior studies on this patient for comparison purposes. Chamber Sizes and Function Normal left ventricular size, mildly increased wall thickness, normalglobal systolic function with an estimated EF of 65 - 70%. No restingregional wall motion abnormality visualized. Left atrial size is normal.Left atrial pressure is normal. Right ventricular cavity size is normal,global systolic RV function is normal. RV wall thickness is normal. Theright atrium is mildly enlarged. Right atrial area is 17 cm . Thepulmonary artery is of normal size and origin. The sinus of Valsalva isnormal sized. The ascending aorta is normal for age/sex/bsa. Valves, RV Pressures and Diastolic Function The aortic valve is calcified, moderate stenosis and no regurgitation. Themitral valve is sclerotic, trace mitral regurgitation. Moderate mitralannular calcification is present. Indeterminate pattern of LV diastolicfilling. The tricuspid valve is normal in structure. Tricuspidregurgitation is mild-moderate. The tricuspid regurgitant velocity is 2.8m/s, the estimated right ventricular systolic pressure is 32 mmHg plusright atrial pressure. The pulmonic valve is normal. Trace pulmonaryregurgitation. Masses, Effusion, Shunts There is no pericardial effusion. The inferior vena cava is not wellvisualized, respiratory size variation not well visualized. No left toright shunting was detected by limited color flow Doppler interrogation ofthe interatrial septum. MEASUREMENTS AND CALCULATIONS 2-D Measurements and LV Function: LVID (d) 3.6 cm LV FS% (2D) 47 % LVID (s) 1.9 cm HR 78 bpm IVS (d) 1.2 cm LA Vol index 46 ml/m2 LVPW (d) 1.1 cm RA area 17 cm Ao Sinus 3.1 cm Asc Ao 3.8 cm LA 3.6 cm Diastology: Mitral Tissue Doppler Pulmonary veins E Peak 0.9 m/s e', Septum 0.10 m/s Pulm s 77.2 cm/s A Peak 1.5 m/s e', Lateral 0.10 m/s Pulm d 41.3 cm/s E/A 0.6 E/e' Average 9.75 Pulm s/d ratio 1.87 DT 260 msec Aortic Valve: Vmax 3.8 m/s Max PG 57 mmHg VTI 0.69 m Mean PG 29 mmHg LVOT V max 1.1 m/s Dim Index 0.36 LVOT VTI 0.25 m Mitral Valve: MVA 2.9 cm MV P 1/2 75 msec MV Mean G 3 mmHg MV VTI 0.32 m Tricuspid Valve and estimated PA pressures: TR Vmax 2.8 m/s TR maxG 32 mmHg . This study was interpreted by an [facility] accredited facility. CC: [facility] (med records) [facility], Med/Surg - IP [facility]. Final Rob Tovar MD ECHO ORD Final Resu lt from Last 3 Months Insurance MEDICARE PB ONLY [facility] MEDIC[facility] PART B ONLY Care Teams Administrative Analyst Relationship Specialty Start Date End Date Pcp, No . PCP - General 08/17/20
--- OUTSIDE RECORDS SUMMARY | 2025-01-01 06:48 | XMS_ITS ---
Author Organization [facility] Address Unknown Allergies, Adverse Reactions, Alerts Substance Reaction Status Noted Date Resolved Date Penicillin active 12/13/2024 Medications Medication Dose Frequency Directions Start Date End Irineo e Calcium Carbonate Oral Tablet 600 mg 24 h Give 600 mg by mouth one time a day for heart burn 12/14/2024 12/15/2024 Aspirin Oral Tablet 81 mg 24 h Give 81 mg by mouth one time a day for heart health 12/14/2024 12/19/2024 Zinc Acetate Capsule 50 mg 24 h Give 50 mg by mouth one time a day for Supplement 12/14/2024 12/13/2024 Multivitamin Oral Tablet 1 {tbl} 24 h Giv e 1 tablet by mouth one time a day for Supplement 12/14/2024 12/28/2024 Ondansetron Oral Tablet Disintegrating 4 MG 8 mg Give 8 mg by mouth a s needed for Nausea & Vomiting 3 times a day 12/13/2024 12/28/2024 Sennosides-Docusate Sodium Oral Tablet 8.6-50 MG 2 {tbl} Give 2 tablet by mouth at bedtime for Constipation 12/14/2024 12/19/2024 Polyethylene Glycol 3350 Oral Powder 17 GM/SCOOP 17 Give 17 gram by mouth as needed for Constipation Mix w/ 4-8 ounces of fluid 12/13/2024 12/28/2024 Zinc Acetate Capsule 50 mg Give 50 mg by mouth in the morning every Thu, Thu for Supplement 12/14/2024 12/28/2024 Doxycycline Hyclate Oral Tablet 100 MG 100 mg 12 h Give 100 mg by mouth two times a day for for pneumonia for 7 Days 12/15/2024 12/22/2024 Calcium Carbonate Oral Tablet 600 mg 24 h Give 600 mg by mouth one time a day for heart burn 12/16/2024 12/28/2024 Hydrocortisone External Cream 1 % 12 h Apply to affected area/rash topically two times a day for rash for 7 Days wash completely dry skin prior to administration; update in 1 week if rash does not improve or worsens 12/17/2024 12/24/2024 Senna Oral Tablet 8.6 MG 1 {tbl} Giv e 1 tablet by mouth as needed for Constipation BID 12/20/2024 12/28/2024 Senna Oral Tablet 8.6 MG 1 {tbl} 12 h Giv e 1 tablet by mouth two times a day for constipation 12/21/2024 12/28/2024 Medications Administered Medication Dose Frequency Status Start Date End Date Calcium Carbonate Oral Tablet 600 mg 24 h 12/15/2024 Aspirin Oral Tablet 81 mg 24 h 12/19/2024 Zinc Acetate Capsule 50 mg 24 h Multivitamin Oral Tablet 1 {tbl} 24 h 12/28 Ondansetron Oral Tablet Disintegrating 4 MG 8 mg 12/24/2024 Sennosides-Docusate Sodium O ral Tablet 8.6-50 MG 2 {tbl} 12/19/2024 Polyethylene Glycol 3350 Ora l Powder 17 GM/SCOOP 17 12/13/2024 Zinc Acetate Capsule 50 mg Doxycycline Hyclate Oral Tab let 100 MG 100 mg 12 h 12/21/2024 Calcium Carbonate Oral Tablet 600 mg 24 h 12/28/2024 Hydrocortisone External Cream 1 % 12 h 12/23/2024 Senna Oral Tablet 8.6 MG 1 {tbl} 12/20 Senna Oral Tablet 8.6 MG 1 {tbl} 12 h Drug Refused Problems Problem Status Start Date End Date POSTPROCEDURAL INTESTINAL OB STRUCTION, UNSPECIFIED TO PARTIAL VERSUS COMPLETE (Primary) (K91.30 - ICD-10-CM) ACTIVE 12/13 SYSTEMIC INFLAMMATORY RESPON SE SYNDROME (SIRS) OF NON-INFECTIOUS ORIGIN WITHOUT ACUTE ORGAN DYSFUNCTION (R65.10 - ICD-10-CM) ACTIVE 12/13/2024 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 with home health services [facility] 12/13/2024 12:25 pm EST - 12/28/2024 01:30 pm EST Immunizations Vaccine Date TB 2 Step Mantoux Skin Test Influenza-High Dose 08/22/2024 01:00 am EDT COVID-19 Vaccine dose 3 10/22/2021 01:00 am EST PCV20, Prevnar 20 RSV (respiratory syncytial virus)Vaccine COVID-19 SARS [id number] Social History Vital Signs Vital Sign Reading Time Taken painLevel 0 {score} 12/28/2024 12:58 pm EST painLevel 0 {score} 12/27/2024 11:16 am EST painLevel 0 {score} 12/27/2024 04:58 am EST painLevel 0 {score} 12/26/2024 08:46 pm EST painLevel 0 {score} 12/25/2024 02:49 pm EST weight 115 [lb_av] 12/28/2024 12:58 pm EST weight 117 [lb_av] 12/27/2024 11:16 am EST weight 117 [lb_av] 12/26/2024 10:20 am EST weight 116 [lb_av] 12/25/2024 08:54 am EST oxygenSaturation 100 % 12/27/2024 04:4 0 pm EST oxygenSaturation 96 % 12/26/2024 08:3 5 pm EST oxygenSaturation 97 % 12/24/2024 05:2 4 pm EST oxygenSaturation 99 % 12/23/2024 07:4 6 pm EST heartrate 76 /min 12/27/2024 04:40 pm EST heartrate 81 /min 12/26/2024 08:35 pm EST heartrate 80 /min 12/25/2024 07:06 pm EST heartrate 81 /min 12/24/2024 05:24 pm EST heartrate 84 /min 12/23/2024 07:46 pm EST temperature 100.4 [degF] 12/27/2024 04:40 pm EST temperature 98.1 [degF] 12/26/2024 08:35 pm EST temperature 97.9 [degF] 12/24/2024 05:24 pm EST temperature 98 [degF] 12/23/2024 07:46 pm EST systolicValue 126 mm[Hg] 12/27/2024 04:40 pm EST diastolicValue 78 mm[Hg] 12/27/2024 04:40 pm EST systolicValue 108 mm[Hg] 12/26/2024 08:35 pm EST diastolicValue 71 mm[Hg] 12/26/2024 08:35 pm EST systolicValue 120 mm[Hg] 12/25/2024 07:06 pm EST diastolicValue 79 mm[Hg] 12/25/2024 07:06 pm EST systolicValue 118 mm[Hg] 12/24/2024 05:24 pm EST diastolicValue 65 mm[Hg] 12/24/2024 05:24 pm EST systolicValue 117 mm[Hg] 12/23/2024 07:46 pm EST diastolicValue 79 mm[Hg] 12/23/2024 07:46 pm EST respirations 20 /min 12/27/2024 04:40 pm EST respirations 16 /min 12/26/2024 08:35 pm EST
[2025-01-01 06:51] VITALS: BP 145/89; PULSE 88; RESP 18; TEMP 36.6; O2SAT 97; BMI 21.4
--- NOTE | 2025-01-01 08:16 | CRLHL7_ITS ---
For Patients: As a result of the Century Cures Act, medical imaging exams and procedure reports are released immediately into your electronic medical record. You may view this report before your referring provider. If you have questions, please contact your health care provider. INDICATION: Constipation. Recent surgery for SBO secondary to adhesion COMPARISON: A prior examination dated December 07, 2024 TECHNIQUE: CT examination of the abdomen and pelvis was performed following the uneventful intravenous administration of 57 cc of Isovue 370. Thin section axial images were obtained from the lung bases through the pubic symphysis. Oral contrast was not administered. Please note that all CT scans at this facility use dose modulation, iterative reconstruction, and/or weight-based dosing when appropriate to reduce radiation dose to as low as reasonably achievable. FINDINGS: LUNG BASES: Basilar atelectasis.Heart size is normal at the lung bases. LIVER/BILIARY SYSTEM:No hepatic mass. No intra or extrahepatic biliary ductal dilation. Distended but otherwise unremarkable appearing gallbladder. ADRENALS: Normal KIDNEYS, URETERS and BLADDER:Kidneys and ureters appear normal. The bladder is distended but otherwise unremarkable in appearance SPLEEN:Normal appearance. PANCREAS: Appears normal. RETROPERITONEUM and MESENTERY: There is no mass, adenopathy or aortic aneurysm. Atherosclerotic vascular calcification GASTROINTESTINAL SYSTEM: There are postoperative changes. There is no evidence of residual or recurrent small bowel obstruction. No intramural air, free air or collection. There is considerable fecal retention in the rectosigmoid area which may represent a developing impaction. No significant upstream dilation. Diffuse diverticulosis is noted. PELVIS: Limited evaluation due to streak artifact from a right hip arthroplasty. OSSEOUS STRUCTURES and ABDOMINAL WALL: Demineralization and degenerative change. No acute osseous findings.No acute abdominal wall fine OTHER: No free air IMPRESSION: 1. Postoperative changes related to recent bowel surgery without unexpected findings. No evidence of residual or recurrent small bowel obstruction. No intramural air, free air or collection. 2. Considerable fecal retention in the rectosigmoid area which may represent a developing fecal impaction. No upstream dilation. Diffuse colonic diverticulosis noted. 3. Other nonacute appearing findings as discussed in the body of the report. Please review the comments. Please note that all CT scans at this facility use dose modulation, iterative reconstruction, and/or weight-based dosing when appropriate to reduce radiation dose to as low as reasonably achievable. Dictated by Rolando Guardado MD @ 01/01/2025 9:06:41 AM (Electronically Signed)
--- OUTSIDE RECORDS SUMMARY | 2025-01-01 08:25 | XMS_ITS | Clinical Summary ---
Author Organization [employer] [facility] Address [address] [place] [id number] Care Team Providers Care Babbitt Spinner Name Role Phone Pcp, No Primary Care Provider Unavailabl e Encounters Date Type Department Care Team Description 12/15/2024 Lab Requisition [facility] [phone] Madhavi Nunes NP 12/09/2024 9:00 AM CONTRACT CLERK [employer] Ancillary Procedure [facility] [address] [place] [address] from Last 3 Months Immunizations Name Administration Dates Next Due Amb Influenza, Inactivated A IIV4 (Age 65+ Years) Preserv Free 08/28/2020 Influenza, Inactivated AIIV4 (Age 65+ Years) Preserv Free 07/24/2021 Social History Tobacco Use Types Packs/Day Years Used Date Smoking Tobacco: Never Assessed Comments Unknown Sex and Gender Information Value Date Recorded Sex Assigned at Not on file Legal Sex Female 7:12 AM CONTRACT CLERK [employer] Gender Identity Not on file Sexual Orientation [...] WITH AUTO DIFFERENTIAL Routine 12/20/2024 8:25 AM CONTRACT CLERK [employer] Anemia, unspecified Hyperkalemia BASIC METABOLIC PANEL Routine 12/20/2024 8:25 AM CONTRACT CLERK [employer] Anemia, unspecified Hyperkalemia CBC WITH AUTO DIFFERENTIAL Routine 12/20/2024 8:25 AM CONTRACT CLERK [employer] Anemia, unspecified Hyperkalemia ECHO TTE COMPLETE W CONTRAST Routine 12/09/2024 9:46 AM CONTRACT CLERK [employer] Holosystolic murmur from Last 3 Months Results * (ABNORMAL) CBC WITH AUTO DIFFERENTIAL (12/20/2024 8:25 AM CONTRACT CLERK [employer]BILE) WHITE BLOOD COUNT 8.7 4.5 - 11.0 thou/cu mm 12/20/2024 9:18 AM [facility] RED BLOOD COUNT 3.75(L) 4.00 - 5.20 mil/cu mm 12/20/2024 9:18 AM [facility] HEMOGLOBIN 11.7(L) 12.0 - 16.0 g/dL 12/20/2024 9:18 AM [facility] HEMATOCRIT 36.8 33.0 - 51.0 % 12/20/2024 9:18 AM [facility] MCV 98 80 - 100 fL 12/20/2024 9:18 AM [facility] MCH 31.2 26.0 - 34.0 pg 12/20/2024 9:18 AM [facility] MCHC 31.8(L) 32.0 - 36.0 g/dL 12/20/2024 9:18 AM [facility] RDW 13.5 11.5 - 15.5 % 12/20/2024 9:18 AM [facility] PLATELET COUNT 538(H) 140 - 440 thou/cu mm 12/20/2024 9:18 AM [facility] MPV 8.8 6.5 - 11.0 fL 12/20/2024 9:18 AM [facility] % NEUT 73.7 % 12/20/2024 9:18 AM [facility] % LYMPH 16.7 % 12/20/2024 9:18 AM [facility] % MONO 7.5 % 12/20/2024 9:18 AM [facility] % EOS 1.3 % 12/20/2024 9:18 AM [facility] % BASO 0.8 % 12/20/2024 9:18 AM [facility] ABSOLUTE NEUTROPHILS 6.4 1.7 - 7.0 thou/cu mm 12/20/2024 9:18 AM [facility] ABSOLUTE LYMPHOCYTES 1.5 0.9 - 2.9 thou/cu mm 12/20/2024 9:18 AM [facility] ABSOLUTE MONOCYTES 0.7 <0.9 thou/cu mm 12/20/2024 9:18 AM [facility] ABSOLUTE EOSINOPHILS 0.1 <0.5 thou/cu mm 12/20/2024 9:18 AM [facility] ABSOLUTE BASOPHILS 0.1 <0.3 thou/cu mm 12/20/2024 9:18 AM [facility] Blood BLOOD SPECIMEN / Unknown Venipuncture / Unknown 12/20/2024 8:25 AM CONTRACT CLERK [employer] 12/20/2024 9:10 AM [facility] us Madhavi Nunes NP HEMATOLOGY Final Resul t [facility] [address] [place] [address] * (ABNORMAL) BASIC METABOLIC PANEL (12/20/2024 8:25 AM [facility]) SODIUM 141 136 - 145 mmol/L 12/20/2024 9:37 AM [facility] POTASSIUM 4.1 3.5 - 5.1 mmol/L 12/20/2024 9:37 AM [facility] CHLORIDE 102 98 - 107 mmol/L 12/20/2024 9:37 AM [facility] CO2,TOTAL 27 22 - 29 mmol/L 12/20/2024 9:37 AM [facility] ANION GAP 12 5 - 18 12/20/2024 9:37 AM [facility] GLUCOSE 82 70 - 99 mg/dL 12/20/2024 9:37 AM [facility] CALCIUM 9.9 8.8 - 10.4 mg/dL 12/20/2024 9:37 AM [facility] Comment: Reference ranges for this test were updated on 09/13/2024 to reflect our healthy population more accurately. Reference range changes are not retroactively applied to results, but previous results using the same methodology can be interpreted in the context of the new reference range. BUN 24(H) 8 - 23 mg/dL 12/20/2024 9:37 AM [facility] CREATININE 0.97(H) 0.50 - 0.90 mg/dL 12/20/2024 9:37 AM [facility] BUN/CREAT RATIO 25(H) 10 - 20 9:37 AM [facility] eGFR 59(L) >90 mL/min/1. 73m2 12/20/2024 9:37 AM [facility] Comment:As of 2022, eG FR is calculated by the CKD-EPI creatinine equation without race adjustment. eGFR can be influenced by muscle mass, exercise, and diet. The reported eGFR is an estimation only and is only applicable if the renal function is stable. Blood BLOOD SPECIMEN / Unknown Venipuncture / Unknown 12/20/2024 8:25 AM CONTRACT CLERK [employer] 12/20/2024 9:10 AM [facility] us Madhavi Nunes NP CHEMISTRY Final Resul t [facility] [address] [place] [address] * ECHO TTE COMPLETE W CONTRAST (12/09/2024 9:46 AM CONTRACT CLERK [employer]BILE) AORTIC VALVE MEAN PG 29 mmHg PEAK TR VELOCITY 2.8 m/s LVEDD 3.6 cm EJECTION FRACTION 65 - 70% Anatomical Region Laterality Modality Ultrasound 12/09/2024 8:27 AM CONTRACT CLERK [employer] Narrative 12/09/2024 10:39 AM CONTRACT CLERK [employer]LE ECHOCARDIOGRAM KARLA BERNARD : 1945 79 years Study Date: 12/09/2024 8:27:19 AM Gender: F BP: 119/68 mmHg Height: 160.00 cm BSA: 1.58 m Weight: 56.00 kg Tech: TOAN Referring MD: ROB TOVAR Site: [facility] Reading Location: MOBILE- Patient [...] . This study was interpreted by an [facility] accredited facility. CC: [facility] (med records) [facility], Med/Surg - IP [facility]. Final Procedure Note Moustapha Henriquez MD - 12/09/2024 ECHOCARDIOGRAM KARLA BERNARD : 1945 79 years Study Date: 12/09/2024 8:27:19 AM Gender: F BP: 119/68 mmHg Height: 160.00 cm BSA: 1.58 m Weight: 56.00 kg Tech: TOAN Referring MD: ROB TOVAR Site: [facility] Reading Location: MOBILE- Patient [...] . This study was interpreted by an [facility] accredited facility. CC: [facility] (med records) [facility], Med/Surg - IP [facility]. Final Rob Tovar MD ECHO ORD Final Resu lt from Last 3 Months Insurance MEDICARE PB ONLY [facility] MEDIC[facility] PART B ONLY Care Teams Babbitt Spinner Relationship Specialty Start Date End Date Pcp, No . PCP - General 08/17/20
--- NOTE | 2025-01-01 08:31 | ED.GENADULT ---
HPI - General Adult General Date Seen: 01/01/25 Chief complaint: Constipation Stated complaint: trouble with bowel movements Time Seen by Provider: 01/01/25 07:59 Source: patient Mode of arrival: ambulatory Limitations: no limitations History of Present Illness HPI narrative: Patient is a 79-year-old female presenting to the emergency department concerned about constipation. She was here 3 weeks ago and required surgery for a bowel obstruction from a singular adhesion. At that time she states she is having issues with constipation and bloated. She states she is having issues constipation and can. She feels a constipation may be worse. States she only passes small amounts of liquid stool. Denies feeling bloated all this time. States she feels like she has have a bowel movement but can not seem to pass any stool. She is unsure if she has anything blocking her rectum such as hemorrhoids. Does not having 80 abdominal opaque. Today C rectal bleeding. Had some slight nausea earlier that has resolved. Denies fevers, chills, dysuria, lightheadedness, dizziness, chest pain, shortness of breath. No other concerns noted. Related Data Home Medications ?Medication ?Instructions ?Recorded ?Confirmed calcium carbonate (Calcium 600) 600 mg PO DAILY 03/24/23 12/07/24 multivitamin (Multiple Vitamins 1 tab PO DAILY 03/24/23 12/07/24 tablet) zinc acetate 50 mg (zinc) capsule 50 mg PO DAILY 03/24/23 12/07/24 aspirin 81 mg chewable tablet 81 mg PO DAILY 12/06/24 12/07/24 polyethylene glycol 3350 17 17 g PO DAILY PRN 12/07/24 12/07/24 gram/dose oral powder (Miralax) Previous Rx's ?Medication ?Instructions ?Recorded ondansetron 8 mg disintegrating 8 mg PO TID PRN nausea and 12/06/24 tablet vomiting #20 tabs sennosides 8.6 mg-docusate sodium 2 tab-cap (2 x 8.6-50 mg) PO QHS 12/06/24 50 mg tablet (Senna-S) #60 tabs hydrocortisone 1 % topical cream 1 applic topical BID PRN #28.35 12/13/24 grams Allergies Allergy/AdvReac Type Severity Reaction Status Date / Time Penicillins Allergy Rash Verified 01/01/25 08:53 Review of Systems Status of ROS: Reports: 10 or more systems reviewed and unremarkable except as noted in History and below 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) ?Z96.641 - Presence of right artificial hip joint (ICD-10) Social History Narrative: -Zeb What is your current living situation?: I presently have a place to live Problems where you live: declined to answer Problems where you live details: n/a In the past 12 months, utilities in danger of being shut off: no In past 12 months, lack of transportation kept you from medical appts, meetings, work, or getting things needed for daily living: no In the past 12 mos, have been you worried that your food would run out before you had money to buy more?: never true In the past 12 mos, the food you bought just didn't last and you didn't have money to buy more?: never true Smoking Status: Never smoker Do you use any of these nicotine containing products: None Second hand tobacco smoke exposure: No How often do you have a drink containing alcohol: never AUDIT-C Alcohol total score: 0 Non-prescribed substance use: denies use Are you now , , , , never or living with a partner: Social isolation score (0-1 are the most socially isolated patients): 1 How often does anyone, including family, friends and others, physically hurt you: never How often does anyone, including family, friends and others, insult or talk down to you: never How often does anyone, including family, friends and others, threaten you with harm: never How often does anyone, including family, friends and others, scream or curse at you: never Exam Narrative: Exam Narrative: Const: Well-nourished, Well-developed, in no distress Eyes: PERRL, no conjunctival injection, and symmetrical lids HENT: Atraumatic external nose and ears. Moist mucous membranes. Neck: Symmetric, trachea midline, No thyromegaly. CVS: RRR, No murmurs or gallops. Peripheral pulses 2+ and equal in all extremities RESP: Unlabored respiratory effort. Clear to auscultation bilaterally. GI: Nontender/Nondistended, No rebound or guarding. MSK:Extremities w/o deformity, Normal Active ROM Skin: Warm, Dry. No rashes or lesions. Neuro: Normal Muscle tone, No focal neurological deficits. Psych: Awake, Alert, & Oriented x3. Appropriate mood and affect. Const: Vital Signs, click to edit/add: Vital Signs - 24 hr 01/01/25 06:51 Temperature 97.8 F Pulse Rate [Left F emoral] 88 Respiratory Rate 18 Blood Pressure [Ri ght Upper Arm] 145/89 H Pulse Oximetry 97 Oxygen Delivery Me thod Room Air Course Vital Signs Vital signs: Initial Vital Signs Temperature 97.8 F 01/01/25 06:51 Temperature Source Temporal Artery Scan 01/01/25 06:51 Pulse Rate 88 01/01/25 06:51 Pulse Rhythm Regular 01/01/25 06:51 Respiratory Rate 18 01/01/25 06:51 Blood Pressure 145/89 H 01/01/25 06:51 Blood Pressure Mean 107 H 01/01/25 06:51 Blood Pressure Position Sitting 01/01/25 06:51 Pulse Oximetry 97 01/01/25 06:51 Oxygen Delivery Method Room Air 01/01/25 06:51 Vital Signs Temperature 97.8 F 01/01/25 06:51 Pulse Rate 88 01/01/25 06:51 Respiratory Rate 18 01/01/25 06:51 Blood Pressure 145/89 H 01/01/25 06:51 Pulse Oximetry 97 01/01/25 06:51 Oxygen Delivery Method Room Air 01/01/25 06:51 Temperature 97.8 F 01/01/25 06:51 Pulse Rate 88 01/01/25 06:51 Respiratory Rate 18 01/01/25 06:51 Blood Pressure 145/89 H 01/01/25 06:51 Pulse Oximetry 97 01/01/25 06:51 Oxygen Delivery Method Room Air 01/01/25 06:51 Medications Administered Medications: Discontinued Medications Generic Name Dose Route Start Last Admin Trade Name Freq PRN Reason Stop Dose Admin Docusate Sodium/Benzocaine 5 ml 01/01/25 09:16 01/01/25 09:30 Docusate Sodium/Benzocaine 5 Ml Enema KS 01/01/25 09:17 5 ml ONCE ONE Administration Medical Decision Making MDM Narrative Medical decision making narrative: Patient is an 79-year-old female presenting for constipation. With her last bowel obstruction she was having no pain and main symptom was constipation and bloating. She again states she is having constipation that she would describe as worse as last time. Will at symptom likely she has another bowel obstruction based on her previous 1 I do think it is important to do a CT scan to rule it out. She is agreeable to this. CT scan shows no signs of bowel obstruction or other concerning signs but she is starting to develop a possible fecal impaction. Is not quite a full impaction so we will try a enema 1st. She is unable to hold in the enema. Due to that I did do a fecal disimpaction. Was able to get out a good amount of hard stool. The stool that is left in her rectal vault is all very soft. This point I believe she is safe for discharge. I will give her information for a bowel cleanout regimen to help with her constipation. She is agreeable to this plan. Imaging Data CT scan abdomen and pelvis : Radiologist's impression: 1. Postoperative changes related to recent bowel surgery without unexpected findings. No evidence of residual or recurrent small bowel obstruction. No intramural air, free air or collection. 2. Considerable fecal retention in the rectosigmoid area which may represent a developing fecal impaction. No upstream dilation. Diffuse colonic diverticulosis noted. 3. Other nonacute appearing findings as discussed in the body of the report. Please review the comments. Please note that all CT scans at this facility use dose modulation, iterative reconstruction, and/or weight-based dosing when appropriate to reduce radiation dose to as low as reasonably achievable. Dictated by Rolando Guardado MD @ 01/01/2025 9:06:41 AM Discharge Plan Discharge Clinical Impression: Acute constipation Patient Disposition: Home, Self-Care Condition: Stable Instructions: Constipation (DC) Additional Instructions: prepared foods supervisor the following medications [id number]. ?2 - Bisacodyl tablets (Dulcolax? laxative NOT Dulcolax? stool softener) each tablet contains 5 mg of bisacodyl ?1 - 8.3 ounce bottle of Polyethylene Glycol (PEG) 3350 Powder (MiraLAX, SmoothLAX, ClearLAX or generic equivalent) 64 oz. Gatorade? (No red colored flavors) Regular Gatorade?, Gatorade G2?, Powerade?, Powerade Zero?, Pedialyte or Propel?, Liquid IV, and other electrolyte beverages are acceptable. Red flavors are not allowed; all other colors (yellow, green, orange, purple, blue) are okay. It is also okay to buy two 2.12 oz packets of powdered Gatorade that can be mixed with water to a total volume of 64 oz of liquid. ? Simethicone 80 mg or 125 mg tablets, chewables, or softgels -Simethicone is available over the counter in a variety of forms and dosages. Capsules, chewable tablets, and liquid are all acceptable forms. - If you are buying 125 mg tablets, purchase enough simethicone to take 2 tablets. -If you are buying 80 mg tablets, purchase enough to take 3 tablets. ?1 - 10 oz. bottle Magnesium Citrate (No red colored flavors) It is also okay for you to use a 0.5 ounce package of powdered magnesium citrate (17 grams) mixed with 10 ounces of water. ?Tomorrow begin Clear Liquid Diet (clear liquids include things you can see through). Examples of a clear liquid diet include: water, clear broth or bouillon (gluten free options available), Gatorade, Pedialyte or Powerade, carbonated and non-carbonated soft drinks (Sprite, 7-Up, Gingerale), strained fruit juices without pulp (apple, white grape, white cranberry), Jell-O, popsicles, and up to one cup of black coffee or tea (no milk or cream) each day. The following are not allowed on a clear liquid diet: red liquids, alcoholic beverages, dairy products, protein shakes, cream broths, juice with pulp, products containing oil and chewing tobacco. For additional details on following a clear liquid diet, please see [email or web address] ?Take 2 Bisacodyl (Dulcolax) tablets ?4-6 hour later Drink Miralax ? Gatorade preparation Mix 1 bottle of Miralax with 64 oz. of Gatorade in a large pitcher. Drink 1 - 8 oz. glass of the Miralax/Gatorade solution. Continue drinking 1 - 8 oz. glass every 15 minutes thereafter until the mixture is gone With the last glass of Miralax ? Gatorade solution: take 240-250 mg of simethicone. -Simethicone is available over the counter in a variety of forms and dosages. Capsules, chewable tablets, and liquid are all acceptable forms. -Take enough of the medication to total between 240-250 mg. For example, if you have -125 mg chewable tablets, take 2 tablets to total 250 mg. -80 mg tablets, take 3 tablets to total 240 mg. ?The next day take 10 ounces of magnesium citrate Prescriptions: No Action aspirin 81 mg tablet,chewable 81 mg PO DAILY ondansetron 8 mg tablet,disintegrating 8 mg PO TID PRN (Reason: nausea and vomiting) Qty: 20 0RF sennosides-docusate sodium [Senna-S] 8.6-50 mg tablet 2 tab-cap PO QHS Qty: 60 12RF multivitamin [Multiple Vitamins] Tablet 1 tab PO DAILY calcium carbonate [Calcium 600] 600 mg calcium (1,500 mg) tablet 600 mg PO DAILY zinc acetate 50 mg (zinc) capsule 50 mg PO DAILY polyethylene glycol 3350 [Miralax] 17 gram/dose powder 17 g PO DAILY PRN hydrocortisone 1 % cream 1 applic topical BID PRNQty: 28.35 0RF Follow Up/Referrals: John Chahal MD [Primary Care Provider] - Stand Alone Forms: [facility] Info Instructions Procedures Rectal Disimpaction Indication: fecal impaction Procedural Sedation: No Anesthesia used: No Sedation/Analgesia: none Technique: manual disimpaction with gloved finger Result: significant stool output Patient Tolerated Procedure: well Complications: none
[2025-01-01] MEDS: DOCUSATE SODIUM/BENZOCAINE 5 ML ENEMA PR (09:30)
== END 2025-01-01 10:12 | disposition home or self-care (01) ==
PROVIDERS: Emergency Provider Student in an Organized Health Care Education/Training Program; PCP Family Medicine
DX: K59.00 Constipation, unspecified (principal)
CPT/HCPCS: 74177; 82565; 99283; 99284; A9270; Q9967